=== PATIENT | female | born 1980 | race Hispanic/Latino ===

== ENCOUNTER 2018-11-25 20:54 | Emergency (ER) | payer SELFPAY ==
[2018-11-25 21:35] LABS: Urine Blood 3+ (NEG); Urine Glucose NEGATIVE (NEG); Urine Protein 2+ (NEG); Urine Specific Gravity >1.030 (1.005-1.030); Urine pH 5.5 (5.0-7.0)
[2018-11-25 21:36] LABS: Urine Bacteria >50 /HPF (<20); Urine Culture Reflex Order REFLEXED
[2018-11-25] MEDS ORDERED: KETOROLAC 30 MG/ML INJ ONE (22:11)
[2018-11-25] MEDS ORDERED: NA CHLORIDE 0.9% 1,000 ML ONE (22:12)
[2018-11-25] MEDS ORDERED: CEFTRIAXONE/SWI 1gm 1 GM/10 ML SYR ONE (22:12)
[2018-11-25] MEDS ORDERED: HYDROCODONE/APAP 5/325 MG TAB ONE (22:54)
--- NOTE | 2018-11-26 00:03 | EDPHYS ---
Physician Documentation [facility] Name: Margareth Chapa Age: 38 yrs Sex: Female : 1980 Arrival Date: 11/25/2018 Time: 20:56 Bed 16 Private MD: ED Physician Suhas Packer HPI: 11/26 02:30 This 38 yrs old Female presents to ER via Ambulatory with complaints of Flank gs Pain, Vaginal Bleeding. 02:30 The patient complains of pain in the left low back and right low back. Onset: The gs symptoms/episode began/occurred 1 week(s) ago. Modifying factors: The symptoms are alleviated by nothing. the symptoms are aggravated by nothing. movement. Associated signs and symptoms: Pertinent positives: dysuria, hematuria, Pertinent negatives: dizziness. Severity of pain: At its worst the pain was moderate in the emergency department the pain is unchanged. The patient has experienced similar episodes in the past, a few times. 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 - Social history:: Smoking status: Patient/guardian denies using tobacco. - Ebola Screening: : No symptoms or risks identified at this time. ROS: 11/26 02:30 Constitutional: Negative for chills, fever. gs All other systems are negative. Exam: 02:30 Head/Face: Normocephalic, atraumatic. Eyes: Pupils equal round and reactive to light, gs extra-ocular motions intact. Lids and lashes normal. Conjunctiva and sclera are non-icteric and not injected. Cornea within normal limits. Periorbital areas with no swelling, redness, or edema. ENT: Nares patent. No nasal discharge, no septal abnormalities noted. Tympanic membranes are normal and external auditory canals are clear. Oropharynx with no redness, swelling, or masses, exudates, or evidence of obstruction, uvula midline. Mucous membranes moist. Neck: Trachea midline, no thyromegaly or masses palpated, and no cervical lymphadenopathy. Supple, full range of motion without nuchal rigidity, or vertebral point tenderness. No Meningismus. Chest/axilla: Normal chest wall appearance and motion. Nontender with no deformity. No lesions are appreciated. Cardiovascular: Regular rate and rhythm with a normal S1 and S2. No gallops, murmurs, or rubs. Normal PMI, no JVD. No pulse deficits. Respiratory: Lungs have equal breath sounds bilaterally, clear to auscultation and percussion. No rales, rhonchi or wheezes noted. No increased work of breathing, no retractions or nasal flaring. Abdomen/GI: Soft, non-tender, with normal bowel sounds. No distension or tympany. No guarding or rebound. No evidence of tenderness throughout. Skin: Warm, dry with normal turgor. Normal color with no rashes, no lesions, and no evidence of cellulitis. MS/ Extremity: Pulses equal, no cyanosis. Neurovascular intact. Full, normal range of motion. Neuro: Awake and alert, GCS 15, oriented to person, place, time, and situation. Cranial nerves II-XII grossly intact. Motor strength 5/5 in all extremities. Sensory grossly intact. Cerebellar exam normal. Normal gait. 02:30 Constitutional: The patient appears alert, awake. 02:30 Back: CVA tenderness, that is moderate, is noted bilaterally. Vital Signs: 11/25 21:00 BP 135 / 90; Pulse 88; Resp 16; Temp 97.6; Pulse Ox 98% on R/A; Weight 79.38 kg; Height la1 5 ft. 5 in. (165.10 cm); 22:00 BP 125 / 70; Pulse 85; Resp 17; Temp 98; Pulse Ox 99% on R/A; Pain 6/10; rr5 23:00 BP 115 / 71; Pulse 80; Resp 16; Temp 98.1; Pulse Ox 98% ; Pain 4/10; rr5 11/26 00:00 BP 120 / 65; Pulse 75; Resp 16; Temp 98.2; Pulse Ox 100% on R/A; Pain 2/10; rr5 00:40 BP 119 / 76; Pulse 81; Resp 15; Temp 98.2; Pulse Ox 98% ; Pain 2/10; rr5 11/25 21:00 Body Mass Index 29.12 (79.38 kg, 165.10 cm) la1 MDM: 11/25 21:34 Patient medically screened. gs 11/26 02:30 Differential diagnosis: nephrolithiasis, pyelonephritis, UTI. Data reviewed: vital gs signs, nurses notes. Counseling: I had a detailed discussion with the patient and/or guardian regarding: the historical points, exam findings, and any diagnostic results supporting the discharge/admit diagnosis, lab results, radiology results, the need for outpatient follow up. Response to treatment: the patient's symptoms have markedly improved after treatment, and as a result, I will discharge patient. 11/25 21:06 Order name: Urine Microscopic Only; Complete Time: 21:54 11/25 21:15 Order name: Urine Dipstick--Ancillary (enter results); Complete Time: 21:54 ag4 11/25 21:15 Order name: Urine --Ancillary (enter results); Complete Time: 21:54 ag4 11/25 21:38 Order name: Urine Culture EDRI 11/25 22:38 Order name: CT Stone Protocol 11/25 21:06 Order name: Urine Test (obtain specimen); Complete Time: 21:12 11/25 21:06 Order name: Urine Dipstick-Ancillary (obtain specimen); Complete Time: 21:12 Administered Medications: 11/25 22:05 Drug: TORadol - Ketorolac 15 mg Route: IVP; Site: left forearm; rr5 23:05 Follow up: Response: No adverse reaction rr5 22:07 Drug: Rocephin - (cefTRIAXone) 1 grams Route: IVPB; Infused Over: 30 mins; Site: left rr5 forearm; 22:40 Follow up: Response: No adverse reaction; IV Status: Completed infusion; IV Intake: [id number] 22:09 Drug: NS 0.9% 1000 ml Route: IV; Rate: 1 bolus; Site: left forearm; rr5 23:40 Follow up: Response: No adverse reaction; IV Status: Completed infusion; IV Intake: rr5 1000ml 22:46 Drug: [place] 5 mg-325 mg 1 tabs Route: PO; rr5 23:35 Follow up: Response: No adverse reaction rr5 Disposition: 11/26/18 00:02 Discharged to Home. Impression: Acute tubulo-interstitial nephritis. - Condition is Stable. - Discharge Instructions: Pyelonephritis, Adult, Managing Your Hypertension. - Prescriptions for Keflex 500 mg Oral Capsule - take 2 capsule by ORAL route every 12 hours .; 36 capsule. Tylenol- Codeine #4 300-60 mg Oral Tablet - take 1 tablet by ORAL route every 6 hours As needed; 10 tablet. - Medication Reconciliation Form, Thank You Letter, Antibiotic Education, Prescription Opioid Use form. - Follow up: Private Physician; When: 2 - 3 days; Reason: Re-evaluation by your physician. Signatures: Dispatcher [employer] EDMS Yung Kim RN RN la1 Suhas Packer MD MD gs Jean Agrawal RN RN rr5 Corrections: (The following items were deleted from the chart) 11/26 00:46 00:02 11/26/2018 00:02 Discharged to Home. Impression: Acute tubulo-interstitial rr5 nephritis. Condition is Stable. Forms are Medication Reconciliation Form, Thank You Letter, Antibiotic Education, Prescription Opioid Use. Follow up: Private Physician; When: 2 - 3 days; Reason: Re-evaluation by your physician.
--- NOTE | 2018-11-26 00:03 | ER ---
Nurse's Notes [facility] Name: Margareth Chapa Age: 38 yrs Sex: Female : 1980 Arrival Date: 11/25/2018 Time: 20:56 Bed 16 Private MD: Diagnosis: Acute tubulo-interstitial nephritis Presentation: 11/25 21:00 Presenting complaint: Patient states: GALDINO flank pain, vaginal spotting. denies la1 Vomiting, reports diarrhea. Transition of care: patient was not received from another setting of care. Onset of symptoms was November 25, 2018. Risk Assessment: Do you want to hurt yourself or someone else? Patient reports no desire to harm self or others. Initial Sepsis Screen: Does the patient meet any 2 criteria? No. Patient's initial sepsis screen is negative. Does the patient have a suspected source of infection? No. Patient's initial sepsis screen is negative. Care prior to arrival: None. 21:00 Method Of Arrival: Ambulatory la1 21:00 Acuity: AURELIO 3 la1 MANAGER FINANCIAL REPORTING: 21:00 LMP 11/10/2018 la1 Historical: - Allergies: 21:00 NKA; la1 - PMHx: 21:00 None; la1 - PSHx: 21:00 Tubal ligation; la1 - Immunization history:: Adult Immunizations up to date. - Social history:: Smoking status: Patient/guardian denies using tobacco. - Ebola Screening: : No symptoms or risks identified at this time. Screenin:23 Abuse screen: Denies threats or abuse. Denies injuries from another. Nutritional rr5 screening: No deficits noted. Tuberculosis screening: No symptoms or risk factors identified. Fall Risk None identified. Total Echeverria Fall Scale indicates No Risk (0-24 pts). Assessment: 21:15 General: Appears in no apparent distress. uncomfortable, Behavior is calm, cooperative, rr5 appropriate for age. Pain: Complains of pain in left mid back and right mid back Pain does not radiate. Pain currently is 7 out of 10 on a pain scale. Quality of pain is described as aching, Pain began gradually, Is intermittent. Neuro: Level of Consciousness is awake, alert, obeys commands, Oriented to person, place, time, situation, Appropriate for age. Cardiovascular: Capillary refill < 3 seconds Patient's skin is warm and dry. 21:15 Respiratory: Airway is patent Respiratory effort is even, unlabored, Respiratory rr5 pattern is regular, symmetrical. GI: No signs and/or symptoms were reported involving the gastrointestinal system. : Urine is cloudy, pain in flank area bilateral Reports urgency, vaginal bleeding that is not in the vagina, i think from the urethra blood in urine. EENT: No signs and/or symptoms were reported regarding the EENT system. Derm: Skin is intact, Skin temperature is warm. Musculoskeletal: Capillary refill < 3 seconds, Range of motion: intact in all extremities. 22:30 Reassessment: patient complaints still on severe flank pain. ED provider aware with rr5 order made and carried out. 23:00 Reassessment: Patient appears in no apparent distress at this time. No changes from rr5 previously documented assessment. came back from CT scan. placed on bed comfortably. 23:30 Reassessment: Patient appears in no apparent distress at this time. Patient is alert, rr5 oriented x 3, equal unlabored respirations, skin warm/dry/pink. Patient states symptoms have improved. 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 rr5 00:45 Reassessment: Patient appears in no apparent distress at this time. Patient is alert, rr5 oriented x 3, equal unlabored respirations, skin warm/dry/pink. discharge instruction given and explained without complaints made. Vital Signs: 11/25 21:00 BP 135 / 90; Pulse 88; Resp 16; Temp 97.6; Pulse Ox 98% on R/A; Weight 79.38 kg; Height la1 5 ft. 5 in. (165.10 cm); 22:00 BP 125 / 70; Pulse 85; Resp 17; Temp 98; Pulse Ox 99% on R/A; Pain 6/10; rr5 23:00 BP 115 / 71; Pulse 80; Resp 16; Temp 98.1; Pulse Ox 98% ; Pain 4/10; rr5 11/26 00:00 BP 120 / 65; Pulse 75; Resp 16; Temp 98.2; Pulse Ox 100% on R/A; Pain 2/10; rr5 00:40 BP 119 / 76; Pulse 81; Resp 15; Temp 98.2; Pulse Ox 98% ; Pain 2/10; rr5 05/26 21:00 Body Mass Index 29.12 (79.38 kg, 165.10 cm) la1 ED Course: 11/25 20:56 Patient arrived in ED. am2 21:01 Triage completed. la1 21:01 Arm band placed on right wrist. la1 21:02 Jean Agrawal, MAXI is Primary Nurse. rr5 21:06 Suhas Packer MD is Attending Physician. gs 21:23 Patient has correct armband on for positive identification. Bed in low position. Call rr5 light in reach. Pulse ox on. NIBP on. 22:00 Inserted saline lock: 20 gauge in left forearm, using aseptic technique. rr5 22:40 Inserted saline lock: 22 gauge in right forearm, using aseptic technique. IV rr5 discontinued, bleeding controlled, Pressure dressing applied, positive infiltration at left forearm line. 23:09 CT Stone Protocol In Process Unspecified. EDMS 11/26 00:00 No provider procedures requiring assistance completed. rr5 00:00 IV discontinued, intact, bleeding controlled, No redness/swelling at site. Pressure rr5 dressing applied. Administered Medications: 11/25 22:05 Drug: TORadol - Ketorolac 15 mg Route: IVP; Site: left forearm; rr5 23:05 Follow up: Response: No adverse reaction rr5 22:07 Drug: Rocephin - (cefTRIAXone) 1 grams Route: IVPB; Infused Over: 30 mins; Site: left rr5 forearm; 22:40 Follow up: Response: No adverse reaction; IV Status: Completed infusion; IV Intake: [id number] 22:09 Drug: NS 0.9% 1000 ml Route: IV; Rate: 1 bolus; Site: left forearm; rr5 23:40 Follow up: Response: No adverse reaction; IV Status: Completed infusion; IV Intake: rr5 1000ml 22:46 Drug: [place] 5 mg-325 mg 1 tabs Route: PO; rr5 23:35 Follow up: Response: No adverse reaction rr5 Intake: 22:40 IV: 50ml; Total: 50ml. rr5 23:40 IV: 1000ml; Total: 1050ml. rr5 Outcome: 11/26 00:02 Discharge ordered by . gs 00:30 Discharged to home ambulatory. rr5 00:30 Condition: stable 00:30 Discharge instructions given to patient, Instructed on discharge instructions, follow up and referral plans. Demonstrated understanding of instructions, follow-up care, Prescriptions given X 2. 00:46 Patient left the ED. rr5 Addendum: 11/29/2018 14:05 Addendum: Culture Results: Positive urine culture. No further action required. Bacteria i w sensitive to prescribed antibiotic. Signatures: Dispatcher [employer] EDNettie Chacon RN RN iw Yung Kim RN RN [email or web address] Jenny Ahn Gregory, MD MD gs Roque, Raymond, RN RN rr5
--- NOTE | 2018-11-27 10:29 | RAD REPORT ---
EXAM DESCRIPTION: CT - Stone Protocol - 11/25/2018 11:08 pm CLINICAL HISTORY: 38 years Female FLANK PAIN COMPARISON: None TECHNIQUE: Images were obtained in axial, sagittal, and coronal planes. This exam was performed according to our departmental dose-optimization program which includes use of Automated Exposure Control, adjustment of the mA and/or kV according to patient size and/or use of i terative reconstruction technique. FINDINGS: Multiple nonobstructing calcifications kidneys bilaterally. The largest on the right is no rian inferiorly measuring 3 mm. The largest on left is seen measuring 5 mm. No hydronephrosis bilatera lly. No definite ureteral calculi bilaterally. Unremarkable bladder. Appendix not well identified however no secondary signs for appendicitis. No bowel obstruction, perfo ration, or inflammation. No abnormality involving the liver, spleen, pancreas, or adrenal glands bilaterally. Contracted gallb ladder. No dilatation abdominal aorta. No adenopathy or abnormal fluid collections. 3.6 cm cystic finding right pelvis likely involving the right ovary. Uterus is prominent in size. No abnormality lower lungs bilaterally. No acute osseous abnormality. IMPRESSION: Multiple subcentimeter nonobstructing calcifications kidneys bilaterally. No hydronephro sis bilaterally. Possible right ovarian cyst. Electronically signed by: Jessica Beverly MD 11/25/2018 11:26 PM CDT Due to temporary technical issues with the PACS/Fluency reporting system, reports are being signed by the in house radiologist as a courtesy to ensure prompt reporting. The interpreting radiologist is f ully responsible for the content of the report.
== END 2018-11-26 00:46 | disposition home or self-care (01) ==
LOC: ER 20:54
DX: N10 Acute pyelonephritis (principal)
CPT/HCPCS: 74176; 76377; 81003; 81015; 81025; 87077; 87086; 87088; 87186; 96361; 96365; 96375; 99284; J0696; J7030

== ENCOUNTER 2018-12-31 23:13 | Inpatient (IN) | payer SELFPAY ==
[2019-01-01] MEDS ORDERED: MORPHINE 2 MG/ML SYR ONE (00:16)
[2019-01-01] MEDS ORDERED: ONDANSETRON 4 MG/2 ML VIAL ONE (00:16)
[2019-01-01] MEDS ORDERED: NA CHLORIDE 0.9% 2,000 ML ONE (00:16)
[2019-01-01 00:20] LABS: Absolute Lymphocytes (CBC) 0.6 K/uL (0.7-4.9); Basophils % 0.2 % (0-1.3); Hematocrit 36.5 % (36.0-45.0); Lymphocytes % 2.8 % (15.3-44.8); MPV 9.3 fL (7.6-11.3); Monocytes % 6.6 % (3.3-12.3); RBC Red Blood Cell Count 4.19 M/uL (3.86-4.86)
[2019-01-01 00:29] LABS: Protime INR 1.13
[2019-01-01 00:33] LABS: ALT/SGPT 15 U/L (12-78); AST/SGOT 7 U/L (15-37); Alkaline Phosphatase 82 U/L (45-117); BUN Blood Urea Nitrogen 12 mg/dL (7-18); Bicarbonate 24 mmol/L (21-32); Bilirubin Direct 0.2 mg/dL (0-0.2); Bilirubin Total 0.6 mg/dL (0.2-1.0); Glucose Level 125 mg/dL (74-106); NT PRO-BNP 91 pg/mL (<125); Potassium 3.2 mmol/L (3.5-5.1); Protein, Total 8.4 g/dL (6.4-8.2); Sodium Level 137 mmol/L (136-145); Troponin (Emerg Dept Use Only) < 0.02 ng/mL (0.0-0.045)
[2019-01-01] MEDS ORDERED: AZITHROMYCIN 500 MG INJ IVPB ONE (00:51)
[2019-01-01] MEDS ORDERED: CEFTRIAXONE/SWI 1gm 1 GM/10 ML SYR ONE (00:51)
[2019-01-01] MEDS ORDERED: NA CHLORIDE 0.9% 250 ML ONE (00:51)
--- NOTE | 2019-01-01 00:53 | ER ---
Nurse's Notes [facility] Name: Margareth Chapa Age: 38 yrs Sex: Female : 1980 Arrival Date: 12/31/2018 Time: 23:17 Bed 24 Private MD: Diagnosis: Chest pain, unspecified;Chest pain on breathing;Elevated white blood cell count;Urinary tract infection, site not specified;Hypokalemia;Bandemia Presentation: 12/31 23:19 Presenting complaint: Patient states: "I have been having chest pain and shortness of jd3 breath since this morning. I also have been running a fever.". Transition of care: patient was not received from another setting of care. Onset of symptoms was December 31, 2018. Risk Assessment: Do you want to hurt yourself or someone else? Patient reports no desire to harm self or others. Initial Sepsis Screen: Does the patient meet any 2 criteria? HR > 90 bpm. Does the patient have a suspected source of infection? No. Patient's initial sepsis screen is negative. Care prior to arrival: pt reported taking Advil before arrival at 2130. 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 - Social history:: Smoking status: Patient/guardian denies using tobacco. - Ebola Screening: : Patient negative for fever greater than or equal to 101.5 degrees Fahrenheit, and additional compatible Ebola Virus Disease symptoms. - Family history:: not pertinent. Screenin/02 00:30 Abuse screen: Denies threats or abuse. Denies injuries from another. Nutritional lp1 screening: No deficits noted. Tuberculosis screening: No symptoms or risk factors identified. Fall Risk None identified. Assessment: 00:00 General: Appears uncomfortable, Behavior is appropriate for age, Reports chills for lp1 0-12 hours, feeling ill for 0-12 hours, fatigue for 0-12 hours. Pain: Complains of pain in left low back and right low back, to general body Pain does not radiate. Pain began gradually. Neuro: Level of Consciousness is awake, alert, obeys commands, Oriented to person, place, time, situation. Cardiovascular: Rhythm is sinus tachycardia. Respiratory: Respiratory effort is even, Breath sounds are clear bilaterally. GI: Abdomen is non-distended. : Reports burning with urination. EENT: No signs and/or symptoms were reported regarding the EENT system. Derm: Skin is intact, Skin is diaphoretic, Skin is normal. Musculoskeletal: No deficits noted. 01:20 Reassessment: Patient is alert, oriented x 3, equal unlabored respirations, skin lp1 warm/dry/pink. Patient states chills have improved at this time; aware of waiting for imaging results Patient states feeling better. Patient states symptoms have improved. 02:30 Reassessment: Patient states feeling better, but continued discomfort to epigastric lp1 area; Provider notified. Vital Signs: 12/31 23:22 BP 115 / 67; Pulse 129; Resp 20 S; Temp 99.1(O); Pulse Ox 99% on R/A; Weight 81.65 kg jd3 (R); Height 5 ft. 4 in. (162.56 cm) (R); Pain 7/10; 01/01 00:00 BP 119 / 80; Pulse 115; Resp 17; Pulse Ox 98% on R/A; lp1 00:30 BP 116 / 66; Pulse 94; Resp 20; Pulse Ox 99% on R/A; lp1 01:15 BP 115 / 72; Pulse 103; Resp 17; Temp 98.6(O); Pulse Ox 99% on R/A; lp1 02:00 BP 112 / 72; Pulse 102; Resp 14; Pulse Ox 99% on R/A; lp1 12/31 23:22 Body Mass Index 30.90 (81.65 kg, 162.56 cm) jd3 ED Course: 12/31 23:17 Patient arrived in ED. es 23:19 Goyo Felder MD is Attending Physician. gracy 23:21 Triage completed. jd3 23:23 Arm band placed on. jd3 23:55 Inserted saline lock: 20 gauge in right antecubital area, using aseptic technique. lp1 Blood collected. 23:55 First set of blood cultures drawn. lp1 23:57 Ruba Bello, RN is Primary Nurse. lp1 01/01 00:00 Patient has correct armband on for positive identification. Placed in gown. Bed in low lp1 position. Call light in reach. dry wall installer on. Pulse ox on. NIBP on. 00:00 Patient maintains SpO2 saturation greater than 95% on room air. lp1 00:09 X-ray completed. Portable x-ray completed in exam room. Patient tolerated procedure kw well. 00:11 XRAY Chest (1 view) In Process Unspecified. EDMS 00:20 Second set of blood cultures drawn by me, Flu and/or RSV swab sent to lab. lp1 00:26 Radiology exam delayed due to lab results not completed at this time. (BUN/Creatinine). kw1 00:52 Fito Philip MD is Hospitalizing Provider. [facility] 01:08 CT Chest For PE Angio In Process Unspecified. EDMS 01:21 No provider procedures requiring assistance completed. Patient admitted, IV remains in lp1 place. Administered Medications: 00:05 Drug: morphine 2 mg Route: IVP; Site: right antecubital; lp1 01:19 Follow up: Response: Pain is decreased lp1 00:05 Drug: Zofran 4 mg Route: IVP; Site: right antecubital; lp1 01:19 Follow up: Response: No adverse reaction; Nausea is decreased lp1 00:05 Drug: NS 0.9% 1000 ml Route: IV; Rate: 1 bolus; Site: right antecubital; lp1 01:18 Follow up: IV Status: Completed infusion; IV Intake: 1000ml lp1 01:00 Drug: Rocephin - (cefTRIAXone) 1 grams Route: IVPB; Infused Over: 30 mins; Site: right lp1 antecubital; 01:19 Follow up: IV Status: Completed infusion; IV Intake: 10ml lp1 01:05 Drug: Zithromax 500 mg Route: IVPB; Infused Over: 1 hrs; Site: right antecubital; lp1 02:21 Follow up: IV Status: Completed infusion; IV Intake: 250ml lp1 01:05 Drug: Aspirin Chewable Tablet 162 mg Route: PO; lp1 02:20 Follow up: Response: No adverse reaction lp1 01:05 Drug: Potassium Effervescent Tablet 25 mEq Route: PO; lp1 02:20 Follow up: Response: No adverse reaction lp1 01:19 Drug: NS 0.9% 1000 ml Route: IV; Rate: 1 bolus; Site: right antecubital; lp1 02:20 Follow up: IV Status: Completed infusion; IV Intake: 1000ml lp1 02:35 Not Given (Patient Refused): morphine 2 mg IVP once lp1 Intake: 01:18 IV: 1000ml; Total: 1000ml. lp1 01:19 IV: 10ml; Total: 1010ml. lp1 02:20 IV: 1000ml; Total: 2010ml. lp1 02:21 IV: 250ml; Total: 2260ml. 1 Outcome: 00:53 Decision to Hospitalize by Provider. gracy 01:21 Condition: stable lp1 01:21 Instructed on the need for admit. 02:18 Admitted to Med/surg via wheelchair, room 207, with chart, Report called to Lara Michelle RN 02:35 Patient left the ED. lp1 Signatures: Dispatcher [employer] EDGoyo Mckoy MD MD cha Salyer, Edna es Whitley, Kimberlee kw Pena, Laura RN RN lp1 Kaleb Isidro RN RN Jeannie Solorzano Corrections: (The following items were deleted from the chart) 01:21 01:20 Reassessment: Patient is alert, oriented x 3, equal unlabored respirations, skin lp1 warm/dry/pink. Patient states chills have improved at this time Patient states feeling better. Patient states symptoms have improved. lp1
--- NOTE | 2019-01-01 00:54 | EDPHYS ---
Physician Documentation [facility] Name: Margareth Chapa Age: 38 yrs Sex: Female : 1980 Arrival Date: 12/31/2018 Time: 23:17 Bed 24 Private MD: ED Physician Goyo Felder HPI: 12/31 23:52 This 38 yrs old Female presents to ER via Wheelchair with complaints of Chest gracy Pain, Vomiting, CHILLS,SWEATS. 23:52 The patient or guardian reports chest pain that is located primarily in the substernal gracy area, anterior chest wall. The pain does not radiate. Associated signs and symptoms: Pertinent positives: cough, nausea, vomiting, fever. The chest pain is described as a pressure. Modifying factors: The symptoms are alleviated by remaining still, the symptoms are aggravated by cough, deep breath, movement, palpation of area. Severity of pain: At its worst the pain was mild moderate in the emergency department the pain is unchanged. 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 - Social history:: Smoking status: Patient/guardian denies using tobacco. - Ebola Screening: : Patient negative for fever greater than or equal to 101.5 degrees Fahrenheit, and additional compatible Ebola Virus Disease symptoms. - Family history:: not pertinent. ROS: 23:52 Constitutional: Negative for fever, chills, and weight loss, Eyes: Negative for injury, gracy pain, redness, and discharge, ENT: Negative for injury, pain, and discharge, Neck: Negative for injury, pain, and swelling, Abdomen/GI: Negative for abdominal pain, nausea, vomiting, diarrhea, and constipation, Back: Negative for injury and pain, : Negative for injury, bleeding, discharge, and swelling, MS/Extremity: Negative for injury and deformity, Skin: Negative for injury, rash, and discoloration, Neuro: Negative for headache, weakness, numbness, tingling, and seizure, Psych: Negative for depression, anxiety, suicide ideation, homicidal ideation, and hallucinations, Allergy/Immunology: Negative for hives, rash, and allergies, Endocrine: Negative for neck swelling, polydipsia, polyuria, polyphagia, and marked weight changes, Hematologic/Lymphatic: Negative for swollen nodes, abnormal bleeding, and unusual bruising. 23:52 Cardiovascular: Positive for chest pain, palpitations. 23:52 Respiratory: Positive for cough, with no reported sputum. Exam: 23:52 Constitutional: This is a well developed, well nourished patient who is awake, alert, gracy and in no acute distress. Head/Face: Normocephalic, atraumatic. Eyes: Pupils equal round and reactive to light, extra-ocular motions intact. Lids and lashes normal. Conjunctiva and sclera are non-icteric and not injected. Cornea within normal limits. Periorbital areas with no swelling, redness, or edema. ENT: Nares patent. No nasal discharge, no septal abnormalities noted. Tympanic membranes are normal and external auditory canals are clear. Oropharynx with no redness, swelling, or masses, exudates, or evidence of obstruction, uvula midline. Mucous membranes moist. Neck: Trachea midline, no thyromegaly or masses palpated, and no cervical lymphadenopathy. Supple, full range of motion without nuchal rigidity, or vertebral point tenderness. No Meningismus. Chest/axilla: Normal chest wall appearance and motion. Nontender with no deformity. No lesions are appreciated. Abdomen/GI: Soft, non-tender, with normal bowel sounds. No distension or tympany. No guarding or rebound. No evidence of tenderness throughout. Back: No spinal tenderness. No costovertebral tenderness. Full range of motion. Female : Normal external genitalia. Skin: Warm, dry with normal turgor. Normal color with no rashes, no lesions, and no evidence of cellulitis. MS/ Extremity: Pulses equal, no cyanosis. Neurovascular intact. Full, normal range of motion. Neuro: Awake and alert, GCS 15, oriented to person, place, time, and situation. Cranial nerves II-XII grossly intact. Motor strength 5/5 in all extremities. Sensory grossly intact. Cerebellar exam normal. Normal gait. 23:52 Cardiovascular: Rate: tachycardic, Rhythm: regular, Pulses: Pulses are 4+ in bilateral radial, brachial, femoral, popliteal, posterior tibial and and dorsalis pedis arteries.. Heart sounds: normal, Edema: is not appreciated, JVD: is not appreciated. 23:52 Respiratory: the patient does not display signs of respiratory distress, Respirations: normal, Breath sounds: decreased breath sounds, rhonchi, that are mild, are scattered, Respiratory rate: 20 Vital Signs: 23:22 BP 115 / 67; Pulse 129; Resp 20 S; Temp 99.1(O); Pulse Ox 99% on R/A; Weight 81.65 kg jd3 (R); Height 5 ft. 4 in. (162.56 cm) (R); Pain 7/10; 01/01 00:00 BP 119 / 80; Pulse 115; Resp 17; Pulse Ox 98% on R/A; lp1 00:30 BP 116 / 66; Pulse 94; Resp 20; Pulse Ox 99% on R/A; lp1 01:15 BP 115 / 72; Pulse 103; Resp 17; Temp 98.6(O); Pulse Ox 99% on R/A; lp1 02:00 BP 112 / 72; Pulse 102; Resp 14; Pulse Ox 99% on R/A; lp1 12/31 23:22 Body Mass Index 30.90 (81.65 kg, 162.56 cm) jd3 MDM: 12/31 23:27 Patient medically screened. [facility] 23:57 Data reviewed: vital signs, nurses notes, lab test result(s), EKG, radiologic studies, [facility] CT scan, plain films. 12/31 23:51 Order name: Basic Metabolic Panel [facility] 12/31 23:51 Order name: CBC with Diff [facility] 12/31 23:51 Order name: LFT's [facility] 12/31 23:51 Order name: Magnesium; Complete Time: 00:46 [facility] 12/31 23:51 Order name: NT PRO-BNP; Complete Time: 00:46 [facility] 12/31 23:51 Order name: PT-INR; Complete Time: 00:46 [facility] 12/31 23:51 Order name: Troponin (emerg Dept Use Only); Complete Time: 00:46 [facility] 12/31 23:51 Order name: Blood Culture Adult (2) [facility] 12/31 23:51 Order name: Flu; Complete Time: 01:11 [facility] 12/31 23:51 Order name: Urine Culture [facility] 12/31 23:52 Order name: Basic Metabolic Panel; Complete Time: 00:46 [facility] 12/31 23:52 Order name: CBC with Automated Diff; Complete Time: 02:02 [facility] 12/31 23:52 Order name: Liver (Hepatic) Function; Complete Time: 00:46 [facility] 12/31 23:58 Order name: Lactate [facility] 12/31 23:51 Order name: XRAY Chest (1 view) [facility] 12/31 23:51 Order name: CT Chest For PE Angio [facility] 12/31 23:58 Order name: Procalcitonin; Complete Time: 01:11 [facility] 12/31 23:59 Order name: Lactate; Complete Time: 00:46 [facility] 01/01 00:25 Order name: Manual Differential; Complete Time: 02:02 [facility] 01/01 00:56 Order name: Urine Dipstick--Ancillary (enter results) [facility] 01/01 00:56 Order name: Urine --Ancillary (enter results) [facility] 01/01 01:08 Order name: Lipid Profile [facility] 01/01 01:08 Order name: Troponin I [facility] 01/01 01:08 Order name: Troponin I [facility] 01/01 01:08 Order name: Echo with Doppler [facility] 12/31 23:51 Order name: EKG; Complete Time: 23:53 [facility] 12/31 23:51 Order name: Cardiac monitoring; Complete Time: 00:26 [facility] 12/31 23:51 Order name: EKG - Nurse/Tech; Complete Time: 23:58 [facility] 12/31 23:51 Order name: IV Saline Lock; Complete Time: 23:58 [facility] 12/31 23:51 Order name: Labs collected and sent; Complete Time: 23:58 [facility] 12/31 23:51 Order name: O2 Per Protocol; Complete Time: 23:58 [facility] 12/31 23:51 Order name: O2 Sat Monitoring; Complete Time: 23:58 [facility] 12/31 23:51 Order name: Urine Dipstick-Ancillary (obtain specimen); Complete Time: 00:54 [facility] 12/31 23:51 Order name: Urine Test (obtain specimen); Complete Time: 00:55 [facility] 01/01 01:08 Order name: Heart Healthy [facility] 01/01 01:08 Order name: EKG Electrocardiogram [facility] Administered Medications: 01/01 00:05 Drug: morphine 2 mg Route: IVP; Site: right antecubital; lp1 01:19 Follow up: Response: Pain is decreased lp1 00:05 Drug: Zofran 4 mg Route: IVP; Site: right antecubital; lp1 01:19 Follow up: Response: No adverse reaction; Nausea is decreased lp1 00:05 Drug: NS 0.9% 1000 ml Route: IV; Rate: 1 bolus; Site: right antecubital; lp1 01:18 Follow up: IV Status: Completed infusion; IV Intake: 1000ml lp1 01:00 Drug: Rocephin - (cefTRIAXone) 1 grams Route: IVPB; Infused Over: 30 mins; Site: right lp1 antecubital; 01:19 Follow up: IV Status: Completed infusion; IV Intake: 10ml lp1 01:05 Drug: Zithromax 500 mg Route: IVPB; Infused Over: 1 hrs; Site: right antecubital; lp1 02:21 Follow up: IV Status: Completed infusion; IV Intake: 250ml lp1 01:05 Drug: Aspirin Chewable Tablet 162 mg Route: PO; lp1 02:20 Follow up: Response: No adverse reaction lp1 01:05 Drug: Potassium Effervescent Tablet 25 mEq Route: PO; lp1 02:20 Follow up: Response: No adverse reaction lp1 01:19 Drug: NS 0.9% 1000 ml Route: IV; Rate: 1 bolus; Site: right antecubital; lp1 02:20 Follow up: IV Status: Completed infusion; IV Intake: 1000ml lp1 02:35 Not Given (Patient Refused): morphine 2 mg IVP once lp1 Disposition: 01/01/19 00:53 Hospitalization ordered by Fito Philip for Inpatient Admission. Preliminary diagnosis are Chest pain, unspecified, Chest pain on breathing, Elevated white blood cell count, Urinary tract infection, site not specified, Hypokalemia, Bandemia. - Bed requested for Telemetry/MedSurg (Inpatient). - Status is Inpatient Admission. lp1 - Condition is Fair. - Problem is new. - Symptoms have improved. UTI on Admission? Yes Signatures: Dispatcher [employer] EDMS Goyo Felder MD MD cha Pena, Laura, RN RN lp1 Bharati Chapa RN RN cg Davies, Jonathon, RN RN jd3 Corrections: (The following items were deleted from the chart) 02:01 00:53 Hospitalization Ordered by Fito Philip MD for Inpatient Admission. Preliminary cg diagnosis is Chest pain, unspecified; Chest pain on breathing; Elevated white blood cell count; Urinary tract infection, site not specified; Hypokalemia. Bed requested for Telemetry/MedSurg (Inpatient). Status is Inpatient Admission. Condition is Fair. Problem is new. Symptoms have improved. UTI on Admission? Yes. [facility] 02:03 02:01 01/01/2019 00:53 Hospitalization Ordered by Fito Philip MD for Inpatient gracy Admission. Preliminary diagnosis is Chest pain, unspecified; Chest pain on breathing; Elevated white blood cell count; Urinary tract infection, site not specified; Hypokalemia. Bed requested for Telemetry/MedSurg (Inpatient). Status is Inpatient Admission. Condition is Fair. Problem is new. Symptoms have improved. UTI on Admission? Yes. 02:35 02:03 01/01/2019 00:53 Hospitalization Ordered by Fito Philip MD for Inpatient lp1 Admission. Preliminary diagnosis is Chest pain, unspecified; Chest pain on breathing; Elevated white blood cell count; Urinary tract infection, site not specified; Hypokalemia; Bandemia. Bed requested for Telemetry/MedSurg (Inpatient). Status is Inpatient Admission. Condition is Fair. Problem is new. Symptoms have improved. UTI on Admission? Yes. [facility]
[2019-01-01] MEDS ORDERED: ACETAMINOPHEN 500 MG TAB PO PRN (01:00)
[2019-01-01] MEDS ORDERED: ALPRAZOLAM 0.25 MG TABLET PO PRN (01:00)
[2019-01-01] MEDS ORDERED: ASPIRIN 81 MG CHEWABLE TABLET ONE (01:12)
[2019-01-01] MEDS ORDERED: POTASSIUM 25 MEQ EFFERV TAB ONE (01:12)
[2019-01-01 01:18] LABS: Blood Morphology Comment NOT SEEN (NOT SEEN); Platelet Estimate ADEQ
[2019-01-01 03:18] LABS: Urine Blood 2+ (NEG); Urine Glucose NEGATIVE (NEG); Urine Protein TRACE (NEG); Urine pH 6.5 (5.0-7.0)
[2019-01-01] MEDS: ONDANSETRON 4 MG/2 ML VIAL IV PRN ×3 (04:42→20:24)
[2019-01-01] MEDS: MORPHINE 4 MG/ML SYR IV PRN ×2 (04:42→12:13)
[2019-01-01 05:46] LABS: HDL Cholesterol 53 mg/dL (40-60); LDL Cholesterol, Calculated 99 (<130); Troponin I < 0.02 ng/mL (0.0-0.045)
[2019-01-01] MEDS: METOPROLOL TAR 50 MG TAB PO SCH ×2 (05:47→08:54)
[2019-01-01] MEDS: NA CHLORIDE 0.9% 1,000 ML IV SCH ×3 (06:35→22:34)
[2019-01-01] MEDS ORDERED: SODIUM CHLORIDE 0.9% 10ML INJ IV PRN (07:34)
[2019-01-01] MEDS ORDERED: TRAMADOL HCL 50 MG TAB PO PRN (07:36)
--- NOTE | 2019-01-01 07:47 | P.HP ---
Certification for Inpatient Patient admitted to: Observation With expected LOS: <2 Midnights Patient will require the following post-hospital care: None Practitioner: I am a practitioner with admitting privileges, knowledge of patient current condition, hospital course, and medical plan of care. Services: Services provided to patient in accordance with Admission requirements found in Title 42 Section 412.3 of the Code of Federal Regulations Patient History Date of Service: 01/01/19 Reason for admission: Chest pain/intractable nausea and vomiting History of Present Illness: Patient is a 38-year-old female who was at work when she started having lightheadedness and chest discomfort. She went home and started having some nausea and vomiting. She was pale and feeling weak and signed consent lay down and go to bed. After sleeping for about 4 hr she woke up in her symptoms persisted. She decided to come into the emergency room for further evaluation. The worse symptom is having rigors. This is happened on 2 different occasions and she gets very shaky. I believe this is related to her having a fever. I think the chest discomfort may be related to gastritis or esophagitis. She possibly has a viral gastroenteritis. She is not able to keep anything down. She is having persistent vomiting and she failed testing to keep food down in the ER. She will be admitted to the hospital for further evaluation. Allergies No Known Allergies Allergy (Verified 01/01/19 02:54) Home Medications: NK [No Home Meds] 01/01/19 - Past Medical/Surgical History Has patient received pneumonia vaccine in the past: No Diabetic: No -: UTI -: Bunions -: Tubal -: Appy -: R bunion surgery - Family History Father Medical History: Diabetes Mother Medical History: Diabetes - Social History Smoking Status: Never smoker Alcohol use: Yes CD- Drugs: No Caffeine use: Yes Place of Residence: Home Review of Systems 10-point ROS is otherwise unremarkable Physical Examination - Vital Signs Temperature: 102 F Blood Pressure: 129/68 Pulse: 99 Respirations: 18 Pulse Ox (%): 98 - Physical Exam General: Alert, In no apparent distress, Oriented x3 HEENT: Atraumatic, PERRLA, Mucous membr. moist/pink, EOMI, Sclerae nonicteric Neck: Supple, 2+ carotid pulse no bruit, No LAD, Without JVD or thyroid abnormality Respiratory: Clear to auscultation bilaterally, Normal air movement Cardiovascular: Regular rate/rhythm, Normal S1 S2, No murmurs Gastrointestinal: Normal bowel sounds, Soft and benign, Non-distended, No rebound, No guarding, Tenderness Musculoskeletal: No clubbing, No swelling, No tenderness Integumentary: No rashes Neurological: Normal speech, Normal strength at 5/5 x4 extr, Normal tone, Sensation intact, Cranial nerves 3-12 intact, Normal affect, Abnormal gait Lymphatics: No axilla or inguinal lymphadenopathy - Studies Laboratory Data (last 24 hrs) 12/31/18 23:55: PT 13.3 H, INR 1.13 12/31/18 23:55: WBC 20.3 H*, Hgb 12.1, Hct 36.5, Plt Count 341 12/31/18 23:55: Sodium 137, Potassium 3.2 L, BUN 12, Creatinine 0.89, Glucose 125 H, Magnesium 2.0, Total Bilirubin 0.6, AST 7 L, ALT 15, Alkaline Phosphatase 82 Microbiology Data (last 24 hrs): 01/01/19 00:15 Nasopharnyx Influenza Type A Antigen Screen - Final 01/01/19 00:15 Nasopharnyx Influenza Type B Antigen Screen - Final Assessment & Plan - Problems (Diagnosis) (1) Chest pain, rule out acute myocardial infarction Current Visit: Yes Status: Acute (2) Viral gastroenteritis Current Visit: Yes Status: Acute (3) Fever Current Visit: Yes Status: Acute (4) Intractable nausea and vomiting Current Visit: Yes Status: Acute (5) Rigors Current Visit: Yes Status: Acute - Plan 1. Continue with IV hydration 2. Continue with anti-emetics and antipyretics 3. Continue with pain control 4. NPO 5. GI consultation as an outpatient for possible endoscopy? 6. Serial H&H, and we will monitor CBC, BMP, LFTs and lipase along with electrolytes. 7. Serial troponins and EKG 8. GI and DVT prophylax Discharge Plan: Home Plan to discharge in: Greater than 2 days - Advance Directives Does patient have a Living Will: No Does patient have a Durable POA for Healthcare: No - Code Status/Comfort Care Code Status Assessed: Yes Code Status: Full Code Critical Care: No Time Spent Managing PTS Care (In Minutes): 45
--- NOTE | 2019-01-01 08:17 | RAD REPORT ---
EXAM DESCRIPTION: RAD - Chest Single View - 01/01/2019 12:11 am CLINICAL HISTORY: COUGH Chest pain. COMPARISON: No comparisons FINDINGS: Portable technique limits examination quality. The lungs are grossly clear. The heart is normal in size. No displaced fractures. IMPRESSION: No acute intrathoracic process suspected.
[2019-01-01] MEDS: ENOXAPARIN 40 MG/0.4 ML SQ SCH (08:53)
[2019-01-01] MEDS: ACETAMINOPHEN 500 MG TAB PO SCH ×3 (08:53→19:53)
[2019-01-01] MEDS: PANTOPRAZOLE 40 MG INJ IVP SCH (08:58)
--- NOTE | 2019-01-01 10:57 | EKG ---
Test Date: 2018-12-31 Test Time: 23:38:47 [employer] Location Manager: DAXA MEASUREMENT RESULTS: Intervals: Rate: 108 LA: 134 QRSD: 88 QT: 338 QTc: 452 Navarro: P: 65 LA: 134 QRS: 80 T: 31 INTERPRETIVE STATEMENTS: Sinus tachycardia Possible Left atrial enlargement Borderline ECG No previous ECG available for comparison Electronically Signed On 01-01-19 10:54:56 CDT by Royal Lee
--- NOTE | 2019-01-01 11:11 | RAD REPORT ---
EXAM DESCRIPTION: Chest For Pe Angio CLINICAL HISTORY: Cough;Chest pain COMPARISON: None. TECHNIQUE: CT CHEST ANGIOGRAPHY WITH IV CONTRAST on 12/31/2018 11:51 PM CDT. MIPS reconstructions were generated. This exam was performed according to our departmental dose-optimization program, which includes autom ated exposure control, adjustment of the mA and/or kV according to patient size and/or use of iterati ve reconstruction technique. MIP images were generated. FINDINGS: Thoracic aorta is normal in course and caliber without aneurysm or dissection. Pulmonary a rteries are adequately opacified without acute or chronic filling defects. The heart is normal in size. There is no pericardial effusion. Intrathoracic lymph nodes are not enla rged. There is no pleural effusion, pleural thickening or pneumothorax. Central airways are patent. Lungs a re clear with no consolidation, mass or interstitial lung disease. There are no acute abnormalities within the limited images of the upper abdomen. There are no acute osseous findings. No suspicious bony lesions. IMPRESSION: No aortic dissection or aneurysm. No pulmonary embolus. No pneumonia. Electronically signed by: Pardeep Turcios MD 01/01/2019 1:19 AM CDT Due to temporary technical issues with the PACS/Fluency reporting system, reports are being signed by the in house radiologist as a courtesy to ensure prompt reporting. The interpreting radiologist is f ully responsible for the content of the report.
[2019-01-01 11:56] LABS: Absolute Lymphocytes (CBC) 0.9 K/uL (0.7-4.9); Basophils % 0.3 % (0-1.3); Hematocrit 32.4 % (36.0-45.0); Lymphocytes % 4.3 % (15.3-44.8); MPV 8.9 fL (7.6-11.3); Monocytes % 9.3 % (3.3-12.3); RBC Red Blood Cell Count 3.66 M/uL (3.86-4.86)
[2019-01-01] MEDS ORDERED: IBUPROFEN 400 MG TAB PO ONE (12:15)
[2019-01-01] MEDS ORDERED: NA CHLORIDE 0.9% 1,000 ML IV ONE (12:15)
[2019-01-01 12:16] LABS: BUN Blood Urea Nitrogen 7 mg/dL (7-18); Bicarbonate 22 mmol/L (21-32); Glucose Level 101 mg/dL (74-106); Magnesium 1.9 mg/dL (1.8-2.4); Phosphorus 2.1 mg/dL (2.5-4.9); Potassium 3.5 mmol/L (3.5-5.1); Sodium Level 139 mmol/L (136-145); Troponin I < 0.02 ng/mL (0.0-0.045)
[2019-01-01 13:41] LABS: Blood Morphology Comment NOT SEEN (NOT SEEN); Platelet Estimate ADEQ
--- NOTE | 2019-01-01 14:10 | ECHO ---
HEIGHT: ft in WEIGHT: lb oz DATE OF STUDY: 01/01/[address]: Fito Philip MD 2-DIMENSIONAL: YES M.MODE: YES DOPPLER: YES COLOR FLOW: YES TDS: NO PORTABLE: NO DEFINITY: NO BUBBLE STUDY: NO DIAGNOSIS: RULE OUT ACUTE CORONARY SYNDROME CARDIAC HISTORY: CATHERIZATION: NO SURGERY: NO PROSTHETIC VALVE: NO PACEMAKER: NO MEASUREMENTS (cm) DIASTOLIC (NORMALS) SYSTOLIC (NORMALS) IVSd 0.8 (0.6-1.2) LA Diam 2.8 (1.9-4.0) LVEF 59% LVIDd 4.3 (3.5-5.7) LVIDs 3.0 (2.0-3.5) %FS 31% LVPWd 1.0 (0.6-1.2) Ao Diam 2.5 (2.0-3.7) 2 DIMENSIONAL ASSESSMENT: RIGHT ATRIUM: NORMAL LEFT ATRIUM: NORMAL RIGHT VENTRICLE: NORMAL LEFT VENTRICLE: NORMAL TRICUSPID VALVE: NORMAL MITRAL VALVE: NORMAL PULMONIC VALVE: NORMAL AORTIC VALVE: NORMAL PERICARDIAL EFFUSION: NONE AORTIC ROOT: NORMAL LEFT VENTRICULAR WALL MOTION: NORMAL. DOPPLER/COLOR FLOW: NORMAL. COMMENTS: NORMAL 2D ECHO WITH DOPPLER. NO WALL MOTION ABNORMALITY. NO EFFUSION. TECHNOLOGIST: NOE NUÑEZ
[2019-01-01] MEDS ORDERED: MORPHINE 2 MG/ML SYR IV ONE (20:12)
[2019-01-01] MEDS: CEFTRIAXONE/SWI 1gm 1 GM/10 ML SYR IV SCH (20:15)
[2019-01-01] MEDS ORDERED: KETOROLAC 30 MG/ML INJ IV ONE (22:08)
[2019-01-02] MEDS: TRAMADOL 37.5mg/APAP 325mg PER TAB PO SCH ×4 (00:40→18:28)
[2019-01-02] MEDS: ACETAMINOPHEN 325 MG TABLET PO SCH ×4 (00:40→18:28)
[2019-01-02] MEDS ORDERED: IBUPROFEN 200 MG TAB PO SCH (01:00)
--- NOTE | 2019-01-02 02:14 | CON ---
Date of Consultation: 01/01/2019 The patient was admitted to Dr. Miranda's service on 12/31/2018. The patient was seen on 01/01/2019. Reason For Consultation: Chest pain. History Of Present Illness: Ms. Chapa is a patient who is 38 years old. No previous cardiac histor y. No home medication. Came in with what appears to be a viral gastroenteritis, for which she is be ing hydrated. Had a white count of 20,000, potassium of 3.2, temperature of 100.2, had a normal EKG, normal chest x-ray, normal troponin and BNP, but while she is being treated here, developed sharp, s tabbing chest pain in the mid epigastric to substernal area that did not radiate without any PND, ort hopnea, pedal edema, palpitation, or syncope. Echocardiogram, which was done before I saw her, was p erfectly normal. Past Medical History: Otherwise negative. Allergies: NONE. Review of Systems: Negative. Social History: Negative. Family History: Negative. Medications: None. Physical Examination: Vital Signs: Stable. She was afebrile. HEENT: Negative. Neck: Supple without any bruit, lymphadenopathy, JVD, or thyromegaly. Chest: Clear to auscultation and percussion. Cardiac: Revealed a regular rhythm and rate. No murmurs, gallops, or rubs. Abdomen: Benign. Extremities: Revealed no clubbing, cyanosis, or edema. Diagnostic Data: As stated earlier. Impression And Plan: 1.Atypical chest pain, most likely gastric in nature. 2.Viral gastroenteritis. Echocardiogram is normal. EKG is normal. Troponin is negative. I do not think Ms. Chapa needs any more cardiac workup at this point. I agree with her present regimen. He r potassium needs to be corrected. She can go home whenever it is okay with Dr. Miranda. NB/MODL Voice ID: [id number] Report ID: [id number]
[2019-01-02] MEDS: NA CHLORIDE 0.9% 1,000 ML IV SCH ×4 (03:00→23:00)
[2019-01-02] MEDS ORDERED: IBUPROFEN 400 MG TAB PO PRN (04:00)
[2019-01-02] MEDS: IBUPROFEN 200 MG TAB PO SCH ×4 (04:26→21:00)
[2019-01-02 06:28] LABS: Absolute Lymphocytes (CBC) 1.7 K/uL (0.7-4.9); Basophils % 0.3 % (0-1.3); Eosinophils % 0.1 % (0-4.4); Hematocrit 25.7 % (36.0-45.0); Lymphocytes % 10.4 % (15.3-44.8); Monocytes % 9.7 % (3.3-12.3); RBC Red Blood Cell Count 2.93 M/uL (3.86-4.86)
[2019-01-02 06:52] LABS: ALT/SGPT 14 U/L (12-78); AST/SGOT 9 U/L (15-37); Albumin 2.9 g/dL (3.4-5.0); Alkaline Phosphatase 62 U/L (45-117); BUN Blood Urea Nitrogen 7 mg/dL (7-18); Bicarbonate 25 mmol/L (21-32); Bilirubin Total 0.4 mg/dL (0.2-1.0); Creatine Phosphokinase 37 U/L (26-192); Glucose Level 99 mg/dL (74-106); Phosphorus 2.1 mg/dL (2.5-4.9); Potassium 3.6 mmol/L (3.5-5.1); Protein, Total 6.8 g/dL (6.4-8.2); Sodium Level 141 mmol/L (136-145); Thyroid Stimulating Hormone 0.876 uIU/mL (0.360-3.740)
[2019-01-02] MEDS: PANTOPRAZOLE 40 MG INJ IVP SCH (09:29)
[2019-01-02] MEDS: ENOXAPARIN 40 MG/0.4 ML SQ SCH (09:30)
--- NOTE | 2019-01-02 10:04 | P.PN ---
Date of Service: 01/02/19 Patient spiked temp of 103. Patient will be started on acetaminophen and ibuprofen scheduled for 24 hrs. Then DC
--- NOTE | 2019-01-02 11:08 | EKG ---
Test Date: 2019-01-02 Test Time: 07:30:01 Rubber Insulator: GUSTAVO MEASUREMENT RESULTS: Intervals: Rate: 81 OK: 146 QRSD: 78 QT: 386 QTc: 448 Pettibone: P: 57 OK: 146 QRS: 40 T: 28 INTERPRETIVE STATEMENTS: Normal sinus rhythm Normal ECG Compared to ECG 12/31/2018 23:38:47 Sinus tachycardia no longer present Electronically Signed On 01-02-19 11:06:57 CDT by Royal Lee
--- NOTE | 2019-01-02 12:04 | P.PN ---
Subjective Date of Service: 01/02/19 Chief Complaint: Chest pain/intractable nausea and vomiting Pt seen and examined at bedside with RN. Chart Reviewed. Overnight Pt still continues to have fever of 103.0. This AM however doing well overall. No N/V or chills noted. Review of Systems 10-point ROS is otherwise unremarkable Physical Examination - Vital Signs Temperature: 97.1 F Blood Pressure: 102/56 Pulse: 18 Respirations: 18 Pulse Ox (%): 98 - Physical Exam General: Alert, In no apparent distress HEENT: Atraumatic, PERRLA, EOMI Neck: Supple, JVD not distended Respiratory: Clear to auscultation bilaterally, Normal air movement Cardiovascular: Regular rate/rhythm, Normal S1 S2 Gastrointestinal: Normal bowel sounds, No tenderness Musculoskeletal: No tenderness Integumentary: No rashes Neurological: Normal speech, Normal tone, Normal affect Lymphatics: No axilla or inguinal lymphadenopathy - Studies Laboratory Data (last 24 hrs) 01/01/19 11:47: Sodium 139, Potassium 3.5, BUN 7, Creatinine 0.72, Glucose 101, Phosphorus 2.1 L, Magnesium 1.9, Troponin I < 0.02 Medications List Reviewed: Yes Assessment And Plan - Current Problems (Diagnosis) (1) Sepsis Current Visit: Yes Status: Acute Plan: Sepsis 2.2 to UTI -WBC this AM trending down. -Currently on IV rocephin -Urine culture and Blood culture pending at this time Qualifiers: Sepsis type: sepsis due to unspecified organism Qualified Code(s): A41.9 - Sepsis, unspecified organism (2) UTI (urinary tract infection) Current Visit: Yes Status: Acute Plan: UA with UTI at this time -Uculture with 4+ gram negative rods -On IV rocephin Qualifiers: Urinary tract infection type: acute cystitis Hematuria presence: without hematuria Qualified Code(s): N30.00 - Acute cystitis without hematuria (3) Chest pain, rule out acute myocardial infarction Current Visit: Yes Status: Resolved - Plan Pending clinical Improvement at this time. Discharge Plan: Home Plan to discharge in: Greater than 2 days - Code Status/Comfort Care Code Status Assessed: Yes Critical Care: No
[2019-01-02] MEDS: CEFTRIAXONE/SWI 1gm 1 GM/10 ML SYR IV SCH (21:00)
[2019-01-03] MEDS: TRAMADOL 37.5mg/APAP 325mg PER TAB PO SCH ×3 (00:07→12:13)
[2019-01-03] MEDS ORDERED: KETOROLAC 30 MG/ML INJ IV ONE (04:48)
[2019-01-03 08:05] LABS: Absolute Lymphocytes (CBC) 0.8 K/uL (0.7-4.9); Basophils % 0.2 % (0-1.3); Eosinophils % 0.1 % (0-4.4); Hematocrit 27.3 % (36.0-45.0); Lymphocytes % 6.8 % (15.3-44.8); MPV 8.9 fL (7.6-11.3); Monocytes % 7.6 % (3.3-12.3)
[2019-01-03 08:06] LABS: ALT/SGPT 15 U/L (12-78); AST/SGOT 7 U/L (15-37); Albumin 2.8 g/dL (3.4-5.0); Alkaline Phosphatase 64 U/L (45-117); BUN Blood Urea Nitrogen 4 mg/dL (7-18); Bicarbonate 26 mmol/L (21-32); Bilirubin Total 0.3 mg/dL (0.2-1.0); Glucose Level 103 mg/dL (74-106); Potassium 3.6 mmol/L (3.5-5.1); Protein, Total 6.8 g/dL (6.4-8.2); Sodium Level 141 mmol/L (136-145)
[2019-01-03] MEDS: ENOXAPARIN 40 MG/0.4 ML SQ SCH (08:42)
[2019-01-03] MEDS: PANTOPRAZOLE 40 MG INJ IVP SCH (08:42)
[2019-01-03] MEDS: NA CHLORIDE 0.9% 1,000 ML IV SCH (09:00)
--- NOTE | 2019-01-03 11:35 | P.DS ---
Admission Date: 01/02/19 Discharge Date: 01/03/19 Disposition: ROUTINE DISCHARGE Discharge Condition: GOOD Reason for Admission: Chest pain/intractable nausea and vomiting Consultations: Cardiology - Problems (1) Sepsis Current Visit: Yes Status: Acute Qualifiers: Sepsis type: sepsis due to unspecified organism Qualified Code(s): A41.9 - Sepsis, unspecified organism (2) UTI (urinary tract infection) Current Visit: Yes Status: Acute Qualifiers: Urinary tract infection type: acute cystitis Hematuria presence: without hematuria Qualified Code(s): N30.00 - Acute cystitis without hematuria (3) Chest pain, rule out acute myocardial infarction Current Visit: Yes Status: Resolved Brief History of Present Illness: Patient is a 38-year-old female who was at work when she started having lightheadedness and chest discomfort. She went home and started having some nausea and vomiting. She was pale and feeling weak and signed consent lay down and go to bed. After sleeping for about 4 hr she woke up in her symptoms persisted. She decided to come into the emergency room for further evaluation. The worse symptom is having rigors. This is happened on 2 different occasions and she gets very shaky. I believe this is related to her having a fever. I think the chest discomfort may be related to gastritis or esophagitis. She possibly has a viral gastroenteritis. She is not able to keep anything down. She is having persistent vomiting and she failed testing to keep food down in the ER. She will be admitted to the hospital for further evaluation. Hospital Course: Overall during the hospital stay patient main stable Patient was initially admitted to the hospital for fever nausea vomiting was found to have sepsis secondary to urinary tract infection. Patient was initially admitted to the hospital. IV antibiotics were started Rocephin. Along with IV fluids. After 24-48 hr being on IV antibiotics and fluids patient did have marked improvement in her symptoms. Initially patient was having fever with the highest of 3.4 however patient had cooling blanket and fluids running. Patient's urine culture and blood cultures were done in the ER. Urine culture was positive for E. coli sensitive to oral Augmentin. At the time of improvement patient was switched over to oral Augmentin. Patient had marked improvement in her symptoms and thus was discharged home under stable condition was given prescription for Augmentin to be taken for total of 2 weeks. Vital Signs/Physical Exam: Temp Pulse Resp BP Pulse Ox 97.8 F 80 16 119/69 98 01/03/19 08:00 01/03/19 08:00 01/03/19 08:00 01/03/19 08:00 01/03/19 08:00 General: Alert, In no apparent distress HEENT: Atraumatic, PERRLA, EOMI Neck: Supple, JVD not distended Respiratory: Clear to auscultation bilaterally, Normal air movement Cardiovascular: Regular rate/rhythm, Normal S1 S2 Gastrointestinal: Normal bowel sounds, No tenderness Musculoskeletal: No tenderness Integumentary: No rashes Neurological: Normal speech, Normal tone, Normal affect Lymphatics: No axilla or inguinal lymphadenopathy Laboratory Data at Discharge: WBC 11.9 K/uL (4.3-10.9) H D 01/03/19 07:32 Hgb 9.1 g/dL (12.0-15.0) L 01/03/19 07:32 Hct 27.3 % (36.0-45.0) L 01/03/19 07:32 Plt Count 238 K/uL (152-406) 01/03/19 07:32 PT 13.3 SECONDS (9.5-12.5) H 12/31/18 23:55 INR 1.13 12/31/18 23:55 Sodium 141 mmol/L (136-145) 01/03/19 07:32 Potassium 3.6 mmol/L (3.5-5.1) 01/03/19 07:32 BUN 4 mg/dL (7-18) L 01/03/19 07:32 Creatinine 0.56 mg/dL (0.55-1.3) 01/03/19 07:32 Glucose 103 mg/dL (74-106) 01/03/19 07:32 Phosphorus 2.1 mg/dL (2.5-4.9) L 01/02/19 06:15 Magnesium 2.0 mg/dL (1.8-2.4) 01/03/19 07:32 Total Bilirubin 0.3 mg/dL (0.2-1.0) 01/03/19 07:32 AST 7 U/L (15-37) L 01/03/19 07:32 ALT 15 U/L (12-78) 01/03/19 07:32 Alkaline Phosphatase 64 U/L (45-117) 01/03/19 07:32 Troponin I < 0.02 ng/mL (0.0-0.045) 01/01/19 11:47 Triglycerides 91 mg/dL (<150) 01/01/19 05:12 Cholesterol 170 mg/dL (<200) 01/01/19 05:12 HDL Cholesterol 53 mg/dL (40-60) 01/01/19 05:12 Cholesterol/HDL Ratio 3.21 01/01/19 05:12 Home Medications: Amox/Clavulanate [Augmentin 875-125 Tab] 1 each PO BID 14 Days #28 tab 01/03/19 New Medications: Amox/Clavulanate [Augmentin 875-125 Tab] 1 each PO BID 14 Days #28 tab Patient Discharge Instructions: Please f.u with PCP in 1 to days post discharge. New medication. Augmentin 1 tab BID for 7 days Diet: Regular Activity: Ad daksha
== END 2019-01-03 14:57 | disposition home or self-care (01) | DRG 872 ==
LOC: ER 23:13 → ERHOLD 01-01 01:01 → 2ND 01-01 02:23 → OBSVTOIN 01-02 06:09
PROVIDERS: ADMIT Hospitalist; ATTEND Family Medicine
DX: A41.9 Sepsis, unspecified organism (principal); N30.00 Acute cystitis without hematuria; A08.4 Viral intestinal infection, unspecified; R07.89 Other chest pain; B96.20 Unspecified Escherichia coli [E. coli] as the cause of diseases classified elsewhere
CPT/HCPCS: 36415; 71045; 71275; 80048; 80053; 80061; 80076; 81003; 81025; 82550; 82962; 83605; 83735; 83880; 84100; 84145; 84439; 84443; 84484; 85025; 85610; 87040; 87077; 87086; 87088; 87186; 87804; 93005; 93306; 96361; 96365; 96375; 99285; C9113; J0456; J0696; J1650; J2270; J2405; J7030; Q9967

== ENCOUNTER 2019-01-20 21:33 | Observation (INO) | payer SELFPAY ==
[2019-01-20] MEDS ORDERED: NA CHLORIDE 0.9% 1,000 ML ONE (22:03)
[2019-01-20] MEDS ORDERED: MORPHINE 4 MG/ML SYR ONE ×2 (22:03→23:00)
[2019-01-20] MEDS ORDERED: ONDANSETRON 4 MG/2 ML VIAL ONE (22:03)
[2019-01-20 22:19] LABS: Urine Blood 3+ (NEG); Urine Glucose NEGATIVE (NEG); Urine Protein 2+ (NEG)
[2019-01-20 22:39] LABS: Urine Mucus 1+ /HPF (NONE SEEN)
[2019-01-20 22:43] LABS: Calcium Oxalate Crystals- Ur FEW (NONE SEEN); Urine Bacteria <20 /HPF (<20); Urine Culture Reflex Order NOT NEEDED; Urine RBC >50 /HPF (NONE SEEN)
[2019-01-20] MEDS ORDERED: KETOROLAC 30 MG/ML INJ ONE (22:51)
[2019-01-20 22:52] LABS: Absolute Lymphocytes (CBC) 3.2 K/uL (0.7-4.9); Basophils % 1.4 % (0-1.3); Hematocrit 34.2 % (36.0-45.0); Lymphocytes % 27.7 % (15.3-44.8); MPV 9.4 fL (7.6-11.3); RBC Red Blood Cell Count 3.87 M/uL (3.86-4.86)
[2019-01-20 23:00] LABS: ALT/SGPT 16 U/L (12-78); AST/SGOT 6 U/L (15-37); Albumin 3.9 g/dL (3.4-5.0); Alkaline Phosphatase 88 U/L (45-117); BUN Blood Urea Nitrogen 11 mg/dL (7-18); Bicarbonate 25 mmol/L (21-32); Bilirubin Direct < 0.1 mg/dL (0-0.2); Bilirubin Total 0.4 mg/dL (0.2-1.0); Glucose Level 111 mg/dL (74-106); Lipase 170 U/L (73-393); Potassium 3.6 mmol/L (3.5-5.1); Protein, Total 8.2 g/dL (6.4-8.2); Sodium Level 135 mmol/L (136-145)
[2019-01-21] MEDS ORDERED: FENTANYL CITR 100 MCG/2 ML ONE (00:58)
--- NOTE | 2019-01-21 00:58 | ER ---
Nurse's Notes [facility] Name: Margareth Chapa Age: 38 yrs Sex: Female : 1980 Arrival Date: 01/20/2019 Time: 21:36 Bed 15 Private MD: Diagnosis: Hydronephrosis with renal and ureteral calculous obstruction Presentation: 01/20 21:40 Presenting complaint: Patient states: Right back pain that radiates to the abdomen. aj1 Reports nausea Denies V/D. Transition of care: patient was not received from another setting of care. Onset of symptoms was January 20, 2019. Risk Assessment: Do you want to hurt yourself or someone else? Patient reports no desire to harm self or others. Initial Sepsis Screen: Does the patient meet any 2 criteria? No. Patient's initial sepsis screen is negative. Does the patient have a suspected source of infection? No. Patient's initial sepsis screen is negative. Care prior to arrival: None. 21:40 Method Of Arrival: Ambulatory aj 21:40 Acuity: AURELIO 2 aj1 Triage Assessment: 21:40 General: Appears uncomfortable, Behavior is cooperative, crying, restless. Pain: aj1 Complains of pain in posterior aspect of right lateral abdomen and anterior aspect of right lateral abdomen Pain currently is 10 out of 10 on a pain scale. Neuro: Level of Consciousness is awake, alert, obeys commands. Cardiovascular: Patient's skin is warm and dry. Respiratory: Airway is patent Respiratory effort is even, unlabored, Respiratory pattern is regular, symmetrical. : Denies burning with urination, urinary frequency. Musculoskeletal: No signs and/or symptoms reported regarding the musculoskeletal system. Circulation, motion, and sensation intact. 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 - Social history:: Smoking status: Patient/guardian denies using tobacco. - Ebola Screening: : Patient denies travel to an Ebola-affected area in the 21 days before illness onset. Screenin:55 Abuse screen: Denies threats or abuse. Denies injuries from another. Nutritional ca1 screening: No deficits noted. On. Tuberculosis screening: No symptoms or risk factors identified. Fall Risk IV access (20 points). Assessment: 21:42 Reassessment: Sarai Acuna NP at bedside to evaluate patient. aj1 21:45 General: Appears in no apparent distress. comfortable, Behavior is cooperative, ca1 appropriate for age, crying. Pain: Complains of pain in anterior aspect of right lateral abdomen and posterior aspect of right lateral abdomen Pain radiates to right low back Pain currently is 10 out of 10 on a pain scale. Pain began around 1700 today Is intermittent. Neuro: Level of Consciousness is awake, alert, obeys commands, Oriented to person, place, time, situation. Cardiovascular: Heart tones S1 S2 present Capillary refill < 3 seconds Patient's skin is warm and dry. Pulses are all present. Respiratory: Airway is patent Respiratory effort is even, unlabored, Respiratory pattern is regular, symmetrical, Breath sounds are clear bilaterally. GI: Abdomen is round non-distended, Bowel sounds present X 4 quads. Abd is soft and non tender X 4 quads. : Urine is clear. EENT: No deficits noted. No signs and/or symptoms were reported regarding the EENT system. Derm: Skin is intact, is healthy with good turgor, Skin is pink, warm \T\ dry. Musculoskeletal: Circulation, motion, and sensation intact. Capillary refill < 3 seconds, Range of motion: intact in all extremities. 22:56 Reassessment: Patient appears in no apparent distress at this time. Patient and/or ca1 family updated on plan of care and expected duration. Pain level reassessed. Patient is alert, oriented x 3, equal unlabored respirations, skin warm/dry/pink. Pt still standing and refusing to lie down. Reports it hurts more to be on that position. 23:49 Reassessment: Patient appears in no apparent distress at this time. Patient and/or ca1 family updated on plan of care and expected duration. Pain level reassessed. Patient is alert, oriented x 3, equal unlabored respirations, skin warm/dry/pink. Pt back from CT. Appears relaxed, sitting on bed at this time. 01/21 00:32 Reassessment: Patient appears in no apparent distress at this time. Patient and/or ca1 family updated on plan of care and expected duration. Pain level reassessed. Patient is alert, oriented x 3, equal unlabored respirations, skin warm/dry/pink. 01:43 Reassessment: Patient appears in no apparent distress at this time. No changes from la1 previously documented assessment. Patient and/or family updated on plan of care and expected duration. Pain level reassessed. Patient is alert, oriented x 3, equal unlabored respirations, skin warm/dry/pink. 03:20 Reassessment: Patient appears in no apparent distress at this time. Patient and/or cc3 family updated on plan of care and expected duration. Pain level reassessed. Patient is alert, oriented x 3, equal unlabored respirations, skin warm/dry/pink. Patient left ER for admission vitally stable by wheelchair escorted by urgent care techniciantej Sahu and the patient's relative. No valuables left in the patient's room. Patient denies pain at this time. Patient states feeling better. Patient states symptoms have improved. Vital Signs: 01/20 21:40 BP 106 / 70; Pulse 78; Resp 18; Pulse Ox 99% on R/A; Weight 79.38 kg (R); Height 5 ft. aj1 4 in. (162.56 cm) (R); Pain 10/10; 22:56 BP 129 / 93; Pulse 81; Resp 16 S; Pulse Ox 100% on R/A; ca1 23:49 BP 131 / 84; Pulse 75; Resp 16; Temp 97.8(O); Pulse Ox 99% on R/A; Pain 6/10; ca1 01/21 00:32 BP 128 / 77; Pulse 76; Resp 16 S; Temp 98.1(O); Pulse Ox 100% on R/A; ca1 01:42 BP 110 / 55; Pulse 74; Resp 16; Pulse Ox 98% on R/A; la1 03:00 BP 117 / 64; Pulse 64; Resp 16 S; Temp 98.1(O); Pulse Ox 99% on R/A; cc3 01/20 21:40 Body Mass Index 30.04 (79.38 kg, 162.56 cm) aj1 ED Course: 01/20 21:36 Patient arrived in ED. ds1 21:40 Arm band placed on Patient placed in an exam room. aj1 21:41 Triage completed. aj1 21:41 Nahum Acuna, STEPHANY is PHCP. pm1 21:41 Kemar Nelson MD is Attending Physician. pm1 21:42 Erma Braun, MAXI is Primary Nurse. ca1 21:55 Patient has correct armband on for positive identification. Placed in gown. Bed in low ca1 position. Call light in reach. Side rails up X 1. Pulse ox on. NIBP on. Warm blanket given. 21:55 Missed attempt(s): 20 gauge in right antecubital area. Bleeding controlled, band aid ca1 applied, catheter tip intact. 22:00 Missed attempt(s): 22 gauge in left antecubital area. Bleeding controlled, band aid aj1 applied, catheter tip intact. 22:00 Missed attempt(s): 22 gauge in right forearm. Bleeding controlled, band aid applied, aj1 catheter tip intact. 22:03 Radiology exam delayed due to lab results not completed at this time. (BUN/Creatinine). mw3 22:05 Accessed peripheral vein via ultrasound, utilizing dynamic ultrasound technique using ca1 18G Sureflo IV catheter ,sterile technique, per hospital protocol. Clean \T\ dry. Dressing intact. Good blood return. Flushes easily. By Yung Perez RN. 01/21 00:33 No provider procedures requiring assistance completed. ca1 00:35 CT Stone Protocol In Process Unspecified. EDMS 00:56 Fito Philip MD is Hospitalizing Provider. pm1 00:57 Report given to Yung Perez RN. ca1 02:24 X-ray completed. Patient tolerated procedure well. kw 02:26 Abdomen 1 View (KUB) XRAY In Process Unspecified. EDMS 03:00 Patient admitted, IV remains in place. cc3 Administered Medications: 01/20 22:00 Drug: NS 0.9% 1000 ml Route: IV; Rate: 1000 ml; Site: right antecubital; ca1 22:37 Follow up: Response: No adverse reaction; IV Status: Completed infusion ca1 22:00 Drug: Zofran 4 mg Route: IVP; Site: right antecubital; ca1 22:37 Follow up: Response: No adverse reaction; Nausea is decreased ca1 22:10 Drug: morphine 4 mg Route: IVP; Site: right antecubital; ca1 22:37 Follow up: Response: No adverse reaction; Pain is unchanged, physician notified ca1 22:36 Drug: TORadol 30 mg Route: IVP; Site: right antecubital; ca1 22:46 Follow up: Response: No adverse reaction; Pain is unchanged, physician notified ca1 22:45 Drug: morphine 4 mg Route: IVP; Site: right antecubital; ca1 01/21 00:51 Follow up: Response: No adverse reaction; Pain is unchanged, physician notified ca1 00:42 Drug: Phenergan 12.5 mg Route: IVP; Site: right antecubital; ca1 01:14 Follow up: Response: No adverse reaction la1 00:51 Drug: fentaNYL (PF) 25 mcg Route: IVP; Site: right antecubital; ca1 01:14 Follow up: Response: No adverse reaction; Pain is decreased la1 01:23 Drug: Cipro 400 mg Volume: 200 ml; Route: IVPB; Infused Over: 60 mins; Site: right la1 antecubital; 01:26 Follow up: IV Status: Infusion continued upon admission la1 01:41 Drug: Phenergan 12.5 mg Route: IVP; Site: right antecubital; la1 03:00 Follow up: Response: No adverse reaction; Nausea is decreased; Vomiting decreased cc3 01:42 Drug: fentaNYL (PF) 25 mcg Route: IVP; Site: right antecubital; la1 03:00 Follow up: Response: No adverse reaction; Pain is decreased cc3 Outcome: 00:57 Decision to Hospitalize by Provider. pm1 02:50 Admitted to Med/surg accompanied by tech, family with patient, via wheelchair, room cc3 222, with chart, Report called to MAXI Barragan handed over the report to MAXI Finch 02:50 Condition: stable 02:50 Instructed on the need for admit, Demonstrated understanding of instructions. 03:23 Patient left the ED. cc3 Signatures: Dispatcher [employer] EDAnay Agosto RN RN aj1 Tatum Garay ds1 Iveth Penny Lee, RN RN la1 Nahum Acuna NP UPPER EXTREMITY SURGEON pm1 Shikha Sebastian mw3 Maryjane Hope cc3 Erma Braun RN RN ca1 Corrections: (The following items were deleted from the chart) 01/20 23:51 23:49 Reassessment: Patient appears in no apparent distress at this time. Patient ca1 and/or family updated on plan of care and expected duration. Pain level reassessed. Patient is alert, oriented x 3, equal unlabored respirations, skin warm/dry/pink. Pt back from CT. Appears relaxed. ca1 01/21 02:24 02:24 X-ray completed. Portable x-ray completed in exam room. Patient tolerated kw procedure well. kw
--- NOTE | 2019-01-21 00:59 | EDPHYS ---
Physician Documentation [facility] Name: Margareth Chapa Age: 38 yrs Sex: Female : 1980 Arrival Date: 01/20/2019 Time: 21:36 Bed 15 Private MD: ED Physician Kemar Nelson HPI: 01/21 00:00 This 38 yrs old Female presents to ER via Ambulatory with complaints of Right pm1 flank pain. 00:00 The patient complains of pain in the right low back. The pain radiates to the right pm1 inguinal area. Onset: The symptoms/episode began/occurred today. Modifying factors: The symptoms are alleviated by nothing. the symptoms are aggravated by nothing. Associated signs and symptoms: Pertinent positives: nausea, Pertinent negatives: dysuria, fever. Severity of pain: in the emergency department the pain is actually worse. The patient has not experienced similar symptoms in the past. The patient has been recently seen by a physician: 17 day(s) ago, with different complaint(s), and apparently was diagnosed with sepsis, UTI, chest pain. 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 - Social history:: Smoking status: Patient/guardian denies using tobacco. - Ebola Screening: : Patient denies travel to an Ebola-affected area in the 21 days before illness onset. ROS: 01/21 00:00 Constitutional: Negative for fever, chills, and weight loss, Eyes: Negative for injury, pm1 pain, redness, and discharge, ENT: Negative for injury, pain, and discharge, Neck: Negative for injury, pain, and swelling, Cardiovascular: Negative for chest pain, palpitations, and edema, Respiratory: Negative for shortness of breath, cough, wheezing, and pleuritic chest pain. : Negative for injury, bleeding, discharge, and swelling, MS/Extremity: Negative for injury and deformity, Skin: Negative for injury, rash, and discoloration, Neuro: Negative for headache, weakness, numbness, tingling, and seizure. Abdomen/GI: Positive for abdominal pain, nausea and vomiting, Negative for diarrhea, constipation. Back: Positive for flank pain, on the right. Exam: 00:00 Constitutional: This is a well developed, well nourished patient who is awake, alert, pm1 and in no acute distress. Head/Face: Normocephalic, atraumatic. Eyes: Pupils equal round and reactive to light, extra-ocular motions intact. Lids and lashes normal. Conjunctiva and sclera are non-icteric and not injected. Cornea within normal limits. Periorbital areas with no swelling, redness, or edema. ENT: Nares patent. No nasal discharge, no septal abnormalities noted. Tympanic membranes are normal and external auditory canals are clear. Oropharynx with no redness, swelling, or masses, exudates, or evidence of obstruction, uvula midline. Mucous membranes moist. Neck: Trachea midline, no thyromegaly or masses palpated, and no cervical lymphadenopathy. Supple, full range of motion without nuchal rigidity, or vertebral point tenderness. No Meningismus. Chest/axilla: Normal chest wall appearance and motion. Nontender with no deformity. No lesions are appreciated. Cardiovascular: Regular rate and rhythm with a normal S1 and S2. No gallops, murmurs, or rubs. Normal PMI, no JVD. No pulse deficits. Respiratory: Lungs have equal breath sounds bilaterally, clear to auscultation and percussion. No rales, rhonchi or wheezes noted. No increased work of breathing, no retractions or nasal flaring. Abdomen/GI: Soft, non-tender, with normal bowel sounds. No distension or tympany. No guarding or rebound. No evidence of tenderness throughout. 00:00 Skin: Warm, dry with normal turgor. Normal color with no rashes, no lesions, and no evidence of cellulitis. MS/ Extremity: Pulses equal, no cyanosis. Neurovascular intact. Full, normal range of motion. 00:00 Back: normal spinal alignment noted, CVA tenderness, that is moderate, is noted on the right. 00:00 Neuro: Orientation: is normal, Motor: is normal, moves all fours, strength is normal, strength is 5/5 in all extremities. Vital Signs: 01/20 21:40 BP 106 / 70; Pulse 78; Resp 18; Pulse Ox 99% on R/A; Weight 79.38 kg (R); Height 5 ft. aj1 4 in. (162.56 cm) (R); Pain 10/10; 22:56 BP 129 / 93; Pulse 81; Resp 16 S; Pulse Ox 100% on R/A; ca1 23:49 BP 131 / 84; Pulse 75; Resp 16; Temp 97.8(O); Pulse Ox 99% on R/A; Pain 6/10; ca1 01/21 00:32 BP 128 / 77; Pulse 76; Resp 16 S; Temp 98.1(O); Pulse Ox 100% on R/A; ca1 01:42 BP 110 / 55; Pulse 74; Resp 16; Pulse Ox 98% on R/A; la1 03:00 BP 117 / 64; Pulse 64; Resp 16 S; Temp 98.1(O); Pulse Ox 99% on R/A; cc3 01/20 21:40 Body Mass Index 30.04 (79.38 kg, 162.56 cm) aj1 MDM: 01/20 21:47 Patient medically screened. pm1 01/21 00:00 Physician consultation: Fito Philip MD was called at 01:12, was contacted at 01:12, pm1 regarding admission, patient's condition, and will see patient. 00:55 Physician consultation: Smitha Anglin MD was called at 00:52, was contacted at 00:52, pm1 regarding consult, patient's condition, and will see patient tomorrow, would like admission per Dr. Fito Philip MD NPO, Cipro 400 mg IV BID. 00:56 Data reviewed: vital signs. Data interpreted: Pulse oximetry: on room air is 100 %. pm1 Interpretation: normal. Counseling: I had a detailed discussion with the patient and/or guardian regarding: the historical points, exam findings, and any diagnostic results supporting the discharge/admit diagnosis, lab results, radiology results, the need for further work-up and treatment in the hospital. 01/20 21:47 Order name: Basic Metabolic Panel; Complete Time: 23:03 pm1 01/20 21:47 Order name: CBC with Diff; Complete Time: 23:03 pm1 01/20 21:47 Order name: Creatinine for Radiology; Complete Time: 23:03 pm1 01/20 21:47 Order name: Hepatic Function; Complete Time: 23:03 pm1 01/20 21:47 Order name: Lipase; Complete Time: 23:03 pm1 01/20 21:47 Order name: Urine Microscopic Only; Complete Time: 22:44 pm1 01/20 22:16 Order name: Urine Dipstick--Ancillary (enter results); Complete Time: 22:25 cm6 01/20 22:16 Order name: Urine --Ancillary (enter results); Complete Time: 22:25 cm6 01/21 02:03 Order name: Comprehensive Metabolic Panel EDMS 01/21 02:03 Order name: Magnesium EDMS 01/21 02:03 Order name: Phosphorus EDMS 01/21 02:03 Order name: Protime (+INR) EDMS 01/21 02:04 Order name: CBC with Automated Diff EDMS 01/21 02:04 Order name: PTT, Activated Partial Thromb EDMS 01/20 21:47 Order name: IV Saline Lock; Complete Time: 22:14 pm1 01/20 22:49 Order name: CT Stone Protocol pm1 01/21 01:52 Order name: Abdomen 1 View (KUB) XRAY pm1 01/21 02:04 Order name: CONS Physician Consult EDNY 01/21 02:04 Order name: NPO EDNY 01/20 21:47 Order name: Labs collected and sent; Complete Time: 22:14 pm1 01/20 21:47 Order name: Urine Dipstick-Ancillary (obtain specimen); Complete Time: 22:16 pm1 01/20 21:47 Order name: Urine Test (obtain specimen); Complete Time: 22:13 pm1 01/21 01:15 Order name: NPO; Complete Time: 01:14 pm1 Administered Medications: 01/20 22:00 Drug: NS 0.9% 1000 ml Route: IV; Rate: 1000 ml; Site: right antecubital; ca1 22:37 Follow up: Response: No adverse reaction; IV Status: Completed infusion ca1 22:00 Drug: Zofran 4 mg Route: IVP; Site: right antecubital; ca1 22:37 Follow up: Response: No adverse reaction; Nausea is decreased ca1 22:10 Drug: morphine 4 mg Route: IVP; Site: right antecubital; ca1 22:37 Follow up: Response: No adverse reaction; Pain is unchanged, physician notified ca1 22:36 Drug: TORadol 30 mg Route: IVP; Site: right antecubital; ca1 22:46 Follow up: Response: No adverse reaction; Pain is unchanged, physician notified ca1 22:45 Drug: morphine 4 mg Route: IVP; Site: right antecubital; ca1 01/21 00:51 Follow up: Response: No adverse reaction; Pain is unchanged, physician notified ca1 00:42 Drug: Phenergan 12.5 mg Route: IVP; Site: right antecubital; ca1 01:14 Follow up: Response: No adverse reaction la1 00:51 Drug: fentaNYL (PF) 25 mcg Route: IVP; Site: right antecubital; ca1 01:14 Follow up: Response: No adverse reaction; Pain is decreased la1 01:23 Drug: Cipro 400 mg Volume: 200 ml; Route: IVPB; Infused Over: 60 mins; Site: right la1 antecubital; 01:26 Follow up: IV Status: Infusion continued upon admission la1 01:41 Drug: Phenergan 12.5 mg Route: IVP; Site: right antecubital; la1 03:00 Follow up: Response: No adverse reaction; Nausea is decreased; Vomiting decreased cc3 01:42 Drug: fentaNYL (PF) 25 mcg Route: IVP; Site: right antecubital; la1 03:00 Follow up: Response: No adverse reaction; Pain is decreased cc3 Disposition: 01/21/19 00:57 Hospitalization ordered by Fito Philip for Observation. Preliminary diagnosis is Hydronephrosis with renal and ureteral calculous obstruction. - Bed requested for Telemetry/MedSurg (observation). - Status is Observation. cc3 - Condition is Stable. - Problem is new. - Symptoms have improved. UTI on Admission? No Addendum: 01/22/2019 04:33 Co-signature as Attending Physician, Kemar Nelson MD I agree with the assessment and t w4 plan of care. Signatures: Dispatcher [employer] EDMS Anay Moses RN RN aj1 Emilia Simon RN RN Yung Kim RN RN la1 Nahum Acuna, CONCRETE BUILDING ASSEMBLER CONCRETE BUILDING ASSEMBLER pm1 Kemar Nelson MD MD tw4 Maryjane Hope cc3 Erma Braun RN RN ca1 Corrections: (The following items were deleted from the chart) 01/20 22:52 21:54 Abdomen Pelvis W Con+CT.RAD.BRZ ordered. EDMS EDMS 01/21 02:45 00:57 Hospitalization Ordered by Fito Philip MD for Observation. Preliminary mw diagnosis is Hydronephrosis with renal and ureteral calculous obstruction. Bed requested for Telemetry/MedSurg (observation). Status is Observation. Condition is Stable. Problem is new. Symptoms have improved. UTI on Admission? No. pm1 02:45 02:45 01/21/2019 00:57 Hospitalization Ordered by Fito Philip MD for Observation. mw Preliminary diagnosis is Hydronephrosis with renal and ureteral calculous obstruction. Bed requested for Telemetry/MedSurg (observation). Status is Observation. Condition is Stable. Problem is new. Symptoms have improved. UTI on Admission? No. mw 03:23 02:45 01/21/2019 00:57 Hospitalization Ordered by Fito Philip MD for Observation. cc3 Preliminary diagnosis is Hydronephrosis with renal and ureteral calculous obstruction. Bed requested for Telemetry/MedSurg (observation). Status is Observation. Condition is Stable. Problem is new. Symptoms have improved. UTI on Admission? No. mw
[2019-01-21] MEDS ORDERED: PROMETHAZINE 25 MG/ML VIAL ONE ×2 (01:00→01:45)
[2019-01-21] MEDS ORDERED: CIPROFLOXACIN 400mg IV 400 MG/200 ML BAG IV ONE (01:33)
[2019-01-21] MEDS ORDERED: MORPHINE 4 MG/ML SYR IV PRN (01:53)
[2019-01-21] MEDS: NA CHLORIDE 0.9% 1,000 ML IV SCH ×4 (02:00→23:33)
[2019-01-21] MEDS ORDERED: CEFAZOLIN SODIUM 1 GM/VIAL ONE (03:25)
[2019-01-21] MEDS ORDERED: CEFAZOLIN/NS 1gm 1 GM/50 ML BAG IVPB SCH (06:00)
[2019-01-21 07:40] LABS: Absolute Lymphocytes (CBC) 2.4 K/uL (0.7-4.9); Basophils % 0.4 % (0-1.3); Hematocrit 29.7 % (36.0-45.0); Lymphocytes % 21.7 % (15.3-44.8); MPV 9.1 fL (7.6-11.3); RBC Red Blood Cell Count 3.38 M/uL (3.86-4.86)
[2019-01-21 07:50] LABS: Protime INR 1.08
[2019-01-21 07:51] LABS: ALT/SGPT 15 U/L (12-78); AST/SGOT 9 U/L (15-37); Albumin 3.1 g/dL (3.4-5.0); Alkaline Phosphatase 73 U/L (45-117); BUN Blood Urea Nitrogen 8 mg/dL (7-18); Bicarbonate 25 mmol/L (21-32); Bilirubin Total 0.4 mg/dL (0.2-1.0); Glucose Level 99 mg/dL (74-106); Magnesium 1.9 mg/dL (1.8-2.4); Phosphorus 3.9 mg/dL (2.5-4.9); Potassium 3.9 mmol/L (3.5-5.1); Protein, Total 7.2 g/dL (6.4-8.2); Sodium Level 140 mmol/L (136-145)
--- NOTE | 2019-01-21 07:52 | P.HP ---
Certification for Inpatient Patient admitted to: Observation With expected LOS: <2 Midnights Patient will require the following post-hospital care: None Practitioner: I am a practitioner with admitting privileges, knowledge of patient current condition, hospital course, and medical plan of care. Services: Services provided to patient in accordance with Admission requirements found in Title 42 Section 412.3 of the Code of Federal Regulations Patient History Date of Service: 01/21/19 Reason for admission: Obstructive uropathy/nephrolithiasis with hydronephrosis History of Present Illness: Patient is a 38-year-old female who is been in the hospital on 2 different occasions with pyelonephritis. She was diagnose with a pyelonephritis and made as well as early December. She has been treated with antibiotics. She grew out an enterococcus species as well as an E coli. Both susceptible to penicillin. Patient has been on Augmentin. She was visiting her ex- with their children when suddenly started having back pain. She came into the emergency room for further evaluation. In the ER she was found have a right-sided nephrolithiasis-most likely magnesium struvite stones-with right-sided hydronephrosis. Urology was consulted and plan to do surgery in a.m. Continue with IV antibiotics and pain control at this time. Allergies No Known Allergies Allergy (Verified 01/21/19 04:18) Home Medications: Amox/Clavulanate [Augmentin 875-125 Tab] 1 each PO BID 14 Days #28 tab 01/03/19 - Past Medical/Surgical History Has patient received pneumonia vaccine in the past: No Diabetic: No -: UTI -: Bunions -: E.coli in the urine -: Tubal ligation -: Appendectomy -: R bunion surgery - Family History Father Medical History: Diabetes Mother Medical History: Hypertension, Diabetes - Social History Smoking Status: Never smoker Alcohol use: Yes CD- Drugs: No Caffeine use: Yes Place of Residence: Home Review of Systems 10-point ROS is otherwise unremarkable Physical Examination - Vital Signs Temperature: 98.2 F Blood Pressure: 108/58 Pulse: 71 Respirations: 15 Pulse Ox (%): 98 - Physical Exam General: Alert, In no apparent distress, Oriented x3 HEENT: Atraumatic, PERRLA, Mucous membr. moist/pink, EOMI, Sclerae nonicteric Neck: Supple, 2+ carotid pulse no bruit, No LAD, Without JVD or thyroid abnormality Respiratory: Clear to auscultation bilaterally, Normal air movement Cardiovascular: Regular rate/rhythm, Normal S1 S2, No murmurs Gastrointestinal: Normal bowel sounds, Soft and benign, Non-distended, Tenderness (Right-sided flank tenderness) Musculoskeletal: No clubbing, No swelling, No tenderness Integumentary: No rashes Neurological: Normal gait, Normal speech, Normal strength at 5/5 x4 extr, Normal tone, Sensation intact, Cranial nerves 3-12 intact, Normal affect Lymphatics: No axilla or inguinal lymphadenopathy - Studies Laboratory Data (last 24 hrs) 01/20/19 22:10: Creatinine 0.87 01/20/19 22:10: WBC 11.7 H, Hgb 11.0 L, Hct 34.2 L, Plt Count 464 H 01/20/19 22:10: Sodium 135 L, Potassium 3.6, BUN 11, Creatinine 0.85, Glucose 111 H, Total Bilirubin 0.4, AST 6 L, ALT 16, Alkaline Phosphatase 88, Lipase 170 Assessment & Plan - Problems (Diagnosis) (1) Obstructive uropathy Current Visit: Yes Status: Acute (2) Nephrolithiasis Current Visit: Yes Status: Acute (3) Hydronephrosis, right Current Visit: Yes Status: Acute (4) History of UTI Current Visit: Yes Status: Acute - Plan Plan: 1. IV hydration 2. IV antibiotics 3. NPO after midnight 4. Pain control 5. Urology consultation 6. Patient low risk for any cardiopulmonary complications. Benefit outweigh the risk and will proceed with cystoscopy 7. GI and DVT prophylaxis Discharge Plan: Home Plan to discharge in: 48 Hours - Advance Directives Does patient have a Living Will: No Does patient have a Durable POA for Healthcare: No - Code Status/Comfort Care Code Status Assessed: Yes Code Status: Full Code Critical Care: No Time Spent Managing PTS Care (In Minutes): 50
--- NOTE | 2019-01-21 08:03 | RAD REPORT ---
EXAM DESCRIPTION: RAD - Abdomen 1 View (KUB) - 01/21/2019 2:25 am CLINICAL HISTORY: Abdomen pain. FINDINGS: The bowel gas pattern is unremarkable. Bilateral renal calculi Patient's known distal right ureteral calculi are not clearly seen on this exam. Phleboliths are note d
[2019-01-21] MEDS ORDERED: ENOXAPARIN 30 MG/0.3 ML SQ SCH (09:00)
--- NOTE | 2019-01-21 10:00 | RAD REPORT ---
EXAM DESCRIPTION: CT - Stone Protocol - 01/21/2019 4:49 am CLINICAL HISTORY: The patient is 38 years old and is Female; FLANK PAIN TECHNIQUE: Axial computed tomography images of the abdomen and pelvis without intravenous contrast. Sagittal and coronal reformatted images were created and reviewed. This CT exam was performed usi ng one or more of the following dose reduction techniques: automated exposure control, adjustment o f the mA and/or kV according to patient size, and/or use of iterative reconstruction technique. COMPARISON: No relevant prior studies available. FINDINGS: LUNG BASES: Unremarkable. No mass. No consolidation. ABDOMEN: LIVER: Homogeneous without focal mass. GALLBLADDER AND BILE DUCTS: No calcified stones. No ductal dilation. PANCREAS: Unremarkable. No ductal dilation. SPLEEN: Unremarkable. ADRENALS: Unremarkable. No mass. KIDNEYS AND URETERS: Moderate right hydroureteronephrosis is present secondary to 2 right distal ureteral calculi measuring in conglomerate 0.9 cm. Edema of the right kidney with associated perin ephric and periureteral stranding is present. Bilateral intrarenal calcifications are present. The le ft kidney is unremarkable. STOMACH AND BOWEL: The stomach is distended with food contents. The small bowel is relatively no rmal in caliber. Stool is present throughout colon. There is no mucosal thickening or evidence of bow el obstruction. PELVIS: APPENDIX: The appendix is surgically absent. BLADDER: Bladder is nearly empty. No stones. REPRODUCTIVE: A 2.7 cm left ovarian cyst is present. No follow-up imaging is recommended. The ut erus and right ovary are unremarkable. ABDOMEN and PELVIS: INTRAPERITONEAL SPACE: Unremarkable. No free air. No significant fluid collection. BONES/JOINTS: No acute fracture. SOFT TISSUES: The soft tissues are normal. VASCULATURE: Unremarkable. No abdominal aortic aneurysm. LYMPH NODES: Unremarkable. No enlarged lymph nodes. IMPRESSION: 1. Moderate right hydroureteronephrosis is present secondary to 2 right distal uretera l calculi measuring in conglomerate 0.9 cm. 2. Bilateral nephrolithiasis. Electronically signed by: Shruthi Cruz MD 01/21/2019 12:34 AM CDT Due to temporary technical issues with the PACS/Fluency reporting system, reports are being signed by the in house radiologist as a courtesy to ensure prompt reporting. The interpreting radiologist is f arcadioly responsible for the content of the report.
--- NOTE | 2019-01-21 10:15 | EKG ---
Test Date: 2019-01-21 Test Time: 08:05:13 Internet Sourcer: GUSTAVO MEASUREMENT RESULTS: Intervals: Rate: 63 ME: 152 QRSD: 94 QT: 432 QTc: 442 [place]: P: 50 ME: 152 QRS: 31 T: 18 INTERPRETIVE STATEMENTS: Normal sinus rhythm with sinus arrhythmia Normal ECG Compared to ECG 01/02/2019 07:30:01 No significant changes Electronically Signed On 01-21-19 10:15:37 CDT by Agustín Pryor
[2019-01-21] MEDS: CEFAZOLIN/SWI 1gm 1 GM/10 ML SYR IV SCH ×3 (12:06→23:28)
--- NOTE | 2019-01-21 14:06 | CON ---
Indication: This 38-year-old lady who has a history of stones. Does not drink much water, maybe 1 glass of water per day only with her meals drink water. She has 2 stones in the right distal ureter by the UVJ measuring 9 mm of total, causing hydronephrosis and pain. She has had stones before. We gave her the option of ESWL, possible cysto stent versus ureteroscopy and extraction of stent. She wished to have the ESWL in the morning. All the general information , alternatives, and risks were given. Allergies: NO KNOWN DRUG ALLERGIES. Home Medication: Augmentin. Past Medical And Surgical History: UTI, bunions, E coli in urine, tubal ligation, appendectomy, right bunion surgery. Family History: Father has diabetes. Mother has hypertension, diabetes. Social History: No smoking, some alcohol use. Some drug use. Some caffeine use. Resides at home Review of Systems: 10-point review of systems is otherwise unremarkable. Physical Examination: Vital Signs: Afebrile, stable. HEENT: Atraumatic and normocephalic. General Appearance: Alert, oriented, in no acute distress. HEENT: Atraumatic, normocephalic. Neck: Supple. Respiratory: Clear. Cardiovascular: S1, S2. Gastrointestinal: Normal bowel sounds. Soft. Musculoskeletal: No clubbing. Skin: No rashes. Neurologic: Intact. Lymphatics: No lymphadenopathy. Laboratory Studies: Reviewed. Creatinine 0.8. Urine pH is about 7. Electrolytes normal. Assessment: Obstructive uropathy with 2 stones in the right distal ureter, 9 mm in total. Stones were seen on CT but not on KUB, possible could be uric acid stone, possible passed. Her pain level is much better now, but we will go ahead tomorrow and do CT PELVIS AND POSSIBLE cysto, right retrograde to evaluate the stones. She knows all the risks and benefits and wishes to proceed. CARMELITA/MARYLUL Voice ID: [id number] Report ID: [id number] ANA
--- NOTE | 2019-01-21 14:12 | RAD REPORT ---
EXAM DESCRIPTION: CT - Pelvis Wo Cont - 01/21/2019 1:58 pm CLINICAL HISTORY: ICD N 20.0/N 20.1 COMPARISON: January 20, 2019 cat scan TECHNIQUE: Computed axial tomography of the pelvis was obtained for radiation therapy field placemen t for prostatic carcinoma. All CT scans are performed using dose optimization technique as appropriate and may include automated exposure control or mA/KV adjustment according to patient size. FINDINGS: Calcifications within the mid and distal right ureter are not seen. A bladder calculus is not noted IMPRESSION: Right distal ureteral calculi are no longer seen and presumably have passed
[2019-01-22] MEDS: CEFAZOLIN/SWI 1gm 1 GM/10 ML SYR IV SCH (05:39)
[2019-01-22] MEDS: NA CHLORIDE 0.9% 1,000 ML IV SCH (09:44)
--- NOTE | 2019-01-22 15:37 | P.SSS ---
Patient History Date of Service: 01/22/19 Reason for admission: Obstructive uropathy/nephrolithiasis with hydronephrosis History of Present Illness: Patient is a 38-year-old female who is been in the hospital on 2 different occasions with pyelonephritis. She was diagnose with a pyelonephritis and made as well as early December. She has been treated with antibiotics. She grew out an enterococcus species as well as an E coli. Both susceptible to penicillin. Patient has been on Augmentin. She was visiting her ex- with their children when suddenly started having back pain. She came into the emergency room for further evaluation. In the ER she was found have a right-sided nephrolithiasis-most likely magnesium struvite stones-with right-sided hydronephrosis. Urology was consulted and plan to do surgery in a.m. Continue with IV antibiotics and pain control at this time. Allergies No Known Allergies Allergy (Verified 01/21/19 04:18) Home Medications: Amox/Clavulanate [Augmentin 875-125 Tab] 1 each PO BID 14 Days #28 tab 01/03/19 - Past Medical/Surgical History Has patient received pneumonia vaccine in the past: No Diabetic: No -: UTI -: Bunions -: E.coli in the urine -: Tubal ligation -: Appendectomy -: R bunion surgery - Family History Father -: Diabetes Mother -: Hypertension, Diabetes - Social History Smoking Status: Never smoker Alcohol use: Yes CD- Drugs: No Caffeine use: Yes Place of Residence: Home Review of Systems 10-point ROS is otherwise unremarkable Physical Examination - Vital Signs Temperature: 98.0 F Blood Pressure: 123/84 Pulse: 72 Respirations: 17 Pulse Ox (%): 99 - Physical Exam General: Alert, In no apparent distress HEENT: Atraumatic, PERRLA, Mucous membr. moist/pink, EOMI, Sclerae nonicteric Neck: Supple, 2+ carotid pulse no bruit, No LAD, Without JVD or thyroid abnormality Respiratory: Clear to auscultation bilaterally, Normal air movement Cardiovascular: Regular rate/rhythm, Normal S1 S2 Gastrointestinal: Normal bowel sounds, No tenderness Musculoskeletal: No tenderness Integumentary: No rashes Neurological: Normal gait, Normal speech, Normal strength at 5/5 x4 extr, Normal tone, Normal affect Lymphatics: No axilla or inguinal lymphadenopathy - Diagnosis (Problem(s)) (1) Hydronephrosis, right Status: Resolved (2) Intractable nausea and vomiting Status: Resolved (3) Nephrolithiasis Status: Acute Treatment Summary: Overall during the hospital stay patient main stable Patient was initially admitted to the hospital for nephrolithiasis and right ureter stone as well. Urology was consulted. Patient was started on IV fluids while here in the hospital. Patient was scheduled for procedure. Patient however passed 2 stones overnight and repeat CT scan was negative for any acute right ureter stone. At that time neurology recommended the patient can be discharged home under stable condition and have outpatient follow up with him regarding the nephrolithiasis. Patient demonstrate understanding and thus was discharged home under stable condition. - Disposition Disposition: ROUTINE DISCHARGE Condition: GOOD
== END 2019-01-22 13:34 | disposition home or self-care (01) ==
LOC: ER 21:33 → ERHOLD 01-21 02:39 → 2ND 01-21 03:00
PROVIDERS: ADMIT Hospitalist; ATTEND Family Medicine
DX: N13.2 Hydronephrosis with renal and ureteral calculous obstruction (principal); Z87.440 Personal history of urinary (tract) infections; Z87.442 Personal history of urinary calculi
CPT/HCPCS: 36415; 72192; 74018; 74176; 76377; 80048; 80053; 80076; 81003; 81015; 81025; 83690; 83735; 84100; 85025; 85610; 85730; 88300; 93005; 96361; 96374; 96375; 99285; J0690; J0744; J1650; J2405; J2550; J3010; J7030

== ENCOUNTER 2020-06-29 10:30 | Emergency (ER) | payer OTHER ==
--- NOTE | 2020-06-29 11:31 | RAD REPORT ---
EXAM DESCRIPTION: CT - Stone Protocol - 06/29/2020 11:17 am CLINICAL HISTORY: Flank pain. flank pain, hx of kidney stones COMPARISON: Stone Protocol dated 01/20/2019 TECHNIQUE: Axial images were obtained without oral or IV contrast. Lack of contrast limits solid org an and vascular assessment. The [id number] spans the entirety of the system partially obscuring uppermost abdomen and lung bases. Coronal reformatted images were obtained and reviewed. All CT scans are performed using dose optimization technique as appropriate and may include automated exposure control or mA/KV adjustment according to patient size. FINDINGS: The lower lung schmidt are clear. Imaged portions of the liver and spleen show no suspicious findings on non-contrast imaging. The panc reas and adrenal glands are normal. No pathologic lymphadenopathy in the abdomen or pelvis. Multiple stones are seen in the calices of both kidneys, largest in the inferior calyx left kidney me asuring 8 mm. 7 mm oblong stone is present in the proximal left ureter without hydronephrosis. No bowel obstruction, free air, free fluid or abscess. Appendectomy. No significant bony abnormality. IMPRESSION: 7 mm oblong calculus is present proximal left ureter without significant hydronephrosis. Bilateral nephrolithiasis.
[2020-06-29 11:33] LABS: Urine Blood 2+ (NEG); Urine Glucose NEGATIVE (NEG); Urine Protein 1+ (NEG); Urine Specific Gravity >1.030 (1.005-1.030); Urine pH 5.5 (5.0-7.0)
[2020-06-29 11:36] LABS: Urine Bacteria 20-50 /HPF (<20); Urine Mucus LIGHT /HPF (NONE SEEN); Urine RBC >50 /HPF (NONE SEEN)
[2020-06-29 11:39] LABS: Absolute Lymphocytes (CBC) 2.1 K/uL (0.7-4.9); Basophils % 0.8 % (0-1.3); Hematocrit 34.7 % (36.0-45.0); Lymphocytes % 21.3 % (15.3-44.8); MPV 9.2 fL (7.6-11.3); RBC Red Blood Cell Count 4.03 M/uL (3.86-4.86)
[2020-06-29] MEDS ORDERED: TAMSULOSIN 0.4 MG SR CAP ONE (11:46)
[2020-06-29] MEDS ORDERED: MORPHINE 4 MG/ML SYR ONE ×2 (11:46→13:20)
[2020-06-29] MEDS ORDERED: ONDANSETRON 4 MG/2 ML VIAL ONE (11:46)
[2020-06-29] MEDS ORDERED: KETOROLAC 30 MG/ML INJ ONE (11:47)
[2020-06-29] MEDS ORDERED: NA CHLORIDE 0.9% 1,000 ML ONE (11:47)
[2020-06-29] MEDS ORDERED: MAGNESIUM SULFATE 1 gm IVPB 1 GM/100 ML BAG IV ONE (11:47)
[2020-06-29 13:14] LABS: ALT/SGPT 14 U/L (12-78); AST/SGOT 11 U/L (15-37); Albumin 3.2 g/dL (3.4-5.0); Alkaline Phosphatase 89 U/L (45-117); BUN Blood Urea Nitrogen 10 mg/dL (7-18); Bicarbonate 27 mmol/L (21-32); Bilirubin Direct < 0.1 mg/dL (0-0.2); Bilirubin Total 0.2 mg/dL (0.2-1.0); Glucose Level 101 mg/dL (74-106); Potassium 3.8 mmol/L (3.5-5.1); Protein, Total 7.7 g/dL (6.4-8.2); Sodium Level 140 mmol/L (136-145)
--- NOTE | 2020-06-29 14:06 | ER ---
Nurse's Notes [facility] Name: Margareth Chapa Age: 40 yrs Sex: Female : 1980 Arrival Date: 06/29/2020 Time: 10:31 Bed 5 Private MD: Diagnosis: Calculus of ureter Presentation: 06/29 10:48 Chief complaint: Patient states: left flank pain, low back pain started today, took iw four advil this morning and had no relief, has hx of kidney stones and feels similar. Coronavirus screen: At this time, the client does not indicate any symptoms associated with coronavirus-19. Ebola Screen: Patient negative for fever greater than or equal to 101.5 degrees Fahrenheit, and additional compatible Ebola Virus Disease symptoms Patient denies exposure to infectious person. Patient denies travel to an Ebola-affected area in the 21 days before illness onset. No symptoms or risks identified at this time. Initial Sepsis Screen: Does the patient meet any 2 criteria? No. Patient's initial sepsis screen is negative. Does the patient have a suspected source of infection? No. Patient's initial sepsis screen is negative. Risk Assessment: Do you want to hurt yourself or someone else? Patient reports no desire to harm self or others. Onset of symptoms was June 29, 2020. 10:48 Method Of Arrival: Ambulatory iw 10:48 Acuity: AURELIO 3 iw Historical: - Allergies: 10:50 NKA; iw - Home Meds: 10:50 acutane [Active]; control [Active]; iw - PMHx: 10:50 None; iw - PSHx: 10:50 Appendectomy; Tubal ligation; iw - Immunization history:: Adult Immunizations up to date. - Social history:: Smoking status: Patient denies any tobacco usage or history of. - Family history:: not pertinent. - Hospitalizations: : No recent hospitalization is reported. Screenin:25 Abuse screen: Denies threats or abuse. Denies injuries from another. Nutritional sv screening: No deficits noted. Tuberculosis screening: No symptoms or risk factors identified. Fall Risk None identified. Assessment: 11:05 General: Appears distressed, uncomfortable. Pain: Complains of pain in L flank Pain ss currently is 8 out of 10 on a pain scale. Quality of pain is described as sharp, Is continuous. Neuro: Level of Consciousness is awake, alert, obeys commands, Oriented to person, place, time, situation, Woods Warden are equal bilaterally. Cardiovascular: Capillary refill < 3 seconds is brisk in bilateral fingers Patient's skin is warm and dry. Respiratory: Airway is patent Respiratory effort is even, unlabored, Respiratory pattern is regular, symmetrical. GI: Reports L flank pain that began today Patient currently denies diarrhea, nausea, vomiting. : No signs and/or symptoms were reported regarding the genitourinary system. Denies burning with urination, inability to void, urinary frequency. EENT: Oral mucosa is moist. Derm: Skin is intact, is healthy with good turgor, Skin is dry, Skin is pink, warm \T\ dry. normal. Musculoskeletal: Circulation, motion, and sensation intact. Range of motion: intact in all extremities, Swelling absent. 12:40 Reassessment: Patient appears in no apparent distress at this time. Patient and/or ss family updated on plan of care and expected duration. Pain level reassessed. Patient is alert, oriented x 3, equal unlabored respirations, skin warm/dry/pink. Patient states feeling better. Patient states symptoms have improved. 14:27 Reassessment: pain is 3/10. Pt reports feeling better. Is awaiting for her son to pick ss her up from ED. Vital Signs: 10:48 BP 132 / 70; Pulse 97; Resp 16; Temp 98.6; Pulse Ox 98% on R/A; Weight 79.38 kg; Height iw 5 ft. 4 in. (162.56 cm); Pain 9/10; 12:00 BP 118 / 84; Pulse 73; Resp 16; Pulse Ox 98% ; sv 13:38 BP 127 / 78; Pulse 70; Resp 16; Pulse Ox 98% ; sv 10:48 Body Mass Index 30.04 (79.38 kg, 162.56 cm) iw ED Course: 10:31 Patient arrived in ED. rg4 10:49 Triage completed. iw 10:50 Arm band placed on. iw 10:54 Jeanmarie Higgins MD is Attending Physician. rn 11:16 Tiffanie Pruett RN is Primary Nurse. ss 11:17 CT Stone Protocol In Process Unspecified. EDMS 11:22 Inserted saline lock: 20 gauge in right antecubital area, using aseptic technique. ss Blood collected. 12:00 Patient has correct armband on for positive identification. Bed in low position. Call sv light in reach. Pulse ox on. NIBP on. 14:27 No provider procedures requiring assistance completed. ss 14:39 IV discontinued, intact, bleeding controlled, No redness/swelling at site. Pressure ss dressing applied. Administered Medications: 11:22 Drug: Flomax 0.4 mg Route: PO; ss 12:00 Follow up: Response: No adverse reaction ss 11:22 Drug: Zofran (Ondansetron) 4 mg Route: IVP; Site: right antecubital; ss 12:00 Follow up: Response: No adverse reaction ss 11:22 Drug: NS 0.9% 1000 ml Route: IV; Rate: 1 bolus; Site: right antecubital; ss 12:30 Follow up: IV Status: Completed infusion; IV Intake: 1000ml ss 11:25 Drug: TORadol - Ketorolac 15 mg Route: IVP; Site: right antecubital; ss 12:00 Follow up: Response: No adverse reaction ss 11:27 Drug: morphine 4 mg Route: IVP; Site: right antecubital; ss 12:00 Follow up: Response: No adverse reaction; RASS: Alert and Calm (0) ss 11:30 Drug: Magnesium Sulfate 1 grams Route: IVPB; Infused Over: 1 hrs; Site: right ss antecubital; 12:30 Follow up: IV Status: Completed infusion ss 13:20 Drug: morphine 4 mg Route: IVP; Site: right antecubital; ss 14:10 Follow up: Response: No adverse reaction; No adverse reaction, Patient reports minimal ss relief from pain medicaiton administration 14:27 Not Given (Physician Discretion): morphine 4 mg IVP once; RASS on ADMIN: Combtv4, Very ss Agttd3, Agttd2, Rstlss1, AlertClm0, Drwsy-1, Lt Sdtn-2, Mod Sdtn-3, Dp Sdtn-4, UnArsble-5 14:27 Drug: [place] 10 mg-325 mg 1 tabs Route: PO; ss 14:41 Follow up: Response: Medication administered at discharge. ss Intake: 12:30 IV: 1000ml; Total: 1000ml. ss Outcome: 14:06 Discharge ordered by . rn 14:39 Discharged to home ambulatory, with family. ss 14:39 Condition: improved 14:39 Discharge instructions given to patient, family, Instructed on discharge instructions, follow up and referral plans. medication usage, Demonstrated understanding of instructions, follow-up care, medications, Prescriptions given X 4. 14:41 Patient left the ED. ss Signatures: Dispatcher [employer] Amber oHoks RN RN sv Williams, Irene, RN RN Jeanmarie Higgins MD MD rn Smirch, Shelby, RN RN Tia Chapa rg4 Corrections: (The following items were deleted from the chart) 10:50 10:48 Pulse 97bpm; Resp 16bpm; Pulse Ox 98% RA; Temp 98.6F; 79.38 kg; Height 5 ft. 4 iw in.; BMI: 30.0; Pain 9/10; iw 12:40 12:39 Inserted saline lock: 20 gauge in right antecubital area, using aseptic ss technique. Blood collected. ss
--- NOTE | 2020-06-29 14:06 | EDPHYS ---
Physician Documentation [facility] Name: Margareth Chapa Age: 40 yrs Sex: Female : 1980 Arrival Date: 06/29/2020 Time: 10:31 Bed 5 Private MD: ED Physician Jeanmarie Higgins HPI: 06/29 11:12 This 40 yrs old Female presents to ER via Ambulatory with complaints of flank rn pain, kidney stone. 11:12 The patient presents with pain that is acute. The symptoms are located in the left rn flank. The pain does not radiate. The problem was sustained without known cause. Onset: The symptoms/episode began/occurred this morning. Modifying factors: The patient symptoms are alleviated by nothing, the patient symptoms are aggravated by nothing. Associated signs and symptoms: Pertinent positives: nausea, Pertinent negatives: abdominal pain, constipation, fever, incontinence, numbness, urinary retention. Severity of symptoms: At their worst the symptoms were moderate, in the emergency department the symptoms are unchanged. The patient has experienced similar episodes in the past. The patient has not recently seen a physician. Historical: - Allergies: 10:50 NKA; iw - Home Meds: 10:50 acutane [Active]; control [Active]; iw - PMHx: 10:50 None; iw - PSHx: 10:50 Appendectomy; Tubal ligation; iw - Immunization history:: Adult Immunizations up to date. - Social history:: Smoking status: Patient denies any tobacco usage or history of. - Family history:: not pertinent. - Hospitalizations: : No recent hospitalization is reported. ROS: 11:12 Constitutional: Negative for fever, chills, and weight loss, Eyes: Negative for injury, rn pain, redness, and discharge, Neck: Negative for injury, pain, and swelling, Cardiovascular: Negative for chest pain, palpitations, and edema, Respiratory: Negative for shortness of breath, cough, wheezing, and pleuritic chest pain, Abdomen/GI: Negative for abdominal pain, nausea, vomiting, diarrhea, and constipation, Back: + left flank pain : Negative for injury, discharge, and swelling, MS/Extremity: Negative for injury and deformity, Skin: Negative for injury, rash, and discoloration, Neuro: Negative for headache, weakness, numbness, tingling, and seizure. Exam: 11:12 Constitutional: This is a well developed, well nourished patient who is awake, alert, learning program manager to room, appears slightly uncomfortable Head/Face: Normocephalic, atraumatic. Cardiovascular: Regular rate and rhythm. No pulse deficits. Respiratory: No increased work of breathing, no retractions or nasal flaring. Abdomen/GI: soft, non-tender Back: No spinal tenderness. No costovertebral tenderness. Full range of motion. Skin: Warm, dry MS/ Extremity: Pulses equal, no cyanosis. Neuro: Awake and alert, GCS 15 Vital Signs: 10:48 BP 132 / 70; Pulse 97; Resp 16; Temp 98.6; Pulse Ox 98% on R/A; Weight 79.38 kg; Height iw 5 ft. 4 in. (162.56 cm); Pain 9/10; 12:00 BP 118 / 84; Pulse 73; Resp 16; Pulse Ox 98% ; sv 13:38 BP 127 / 78; Pulse 70; Resp 16; Pulse Ox 98% ; sv 10:48 Body Mass Index 30.04 (79.38 kg, 162.56 cm) iw MDM: 10:54 Patient medically screened. rn 13:10 Response to treatment: the patient's symptoms have mildly improved after treatment, and rn as a result, I will continue to observe the patient. 14:03 Differential diagnosis: UTI, ureterolithiasis. Data reviewed: vital signs, nurses rn notes, lab test result(s), radiologic studies, CT scan, and as a result, I will discharge patient. Counseling: I had a detailed discussion with the patient and/or guardian regarding: the historical points, exam findings, and any diagnostic results supporting the discharge/admit diagnosis, lab results, radiology results, the need for outpatient follow up, to return to the emergency department if symptoms worsen or persist or if there are any questions or concerns that arise at home. Special discussion: I discussed with the patient/guardian in detail that at this point there is no indication for admission to the hospital. It is understood, however, that if the symptoms persist or worsen the patient needs to return immediately for re-evaluation. ED course: Pt improved, 7mm stone, last passed with 9 mm stones, will dc home with pain meds and abx. . 06/29 10:58 Order name: Urine Microscopic Only; Complete Time: 11:40 rn 06/29 10:58 Order name: CBC with Diff; Complete Time: 13:16 rn 06/29 10:58 Order name: Basic Metabolic Panel; Complete Time: 13:16 rn 06/29 10:58 Order name: LFT's; Complete Time: 13:16 rn 06/29 11:32 Order name: Urine Dipstick--Ancillary (enter results); Complete Time: 11:40 dh3 06/29 11:32 Order name: Urine --Ancillary (enter results); Complete Time: 11:40 3 06/29 10:58 Order name: CT Stone Protocol; Complete Time: 11:40 rn 06/29 11:37 Order name: Urine Culture EDMS 06/29 10:58 Order name: IV Start; Complete Time: 12:38 rn 06/29 10:58 Order name: Urine Test (obtain specimen); Complete Time: 12:37 rn 06/29 10:58 Order name: Urine Dipstick-Ancillary (obtain specimen); Complete Time: 12:38 rn 06/29 11:50 Order name: Labs - recollect needed: Chemistry tests are hemolyzed; Complete Time: 12:07dh3 06/29 12:17 Order name: Labs - recollect needed: recollect green top; Complete Time: 12:37 eb Administered Medications: 11:22 Drug: Flomax 0.4 mg Route: PO; ss 12:00 Follow up: Response: No adverse reaction ss 11:22 Drug: Zofran (Ondansetron) 4 mg Route: IVP; Site: right antecubital; ss 12:00 Follow up: Response: No adverse reaction ss 11:22 Drug: NS 0.9% 1000 ml Route: IV; Rate: 1 bolus; Site: right antecubital; ss 12:30 Follow up: IV Status: Completed infusion; IV Intake: 1000ml ss 11:25 Drug: TORadol - Ketorolac 15 mg Route: IVP; Site: right antecubital; ss 12:00 Follow up: Response: No adverse reaction ss 11:27 Drug: morphine 4 mg Route: IVP; Site: right antecubital; ss 12:00 Follow up: Response: No adverse reaction; RASS: Alert and Calm (0) ss 11:30 Drug: Magnesium Sulfate 1 grams Route: IVPB; Infused Over: 1 hrs; Site: right ss antecubital; 12:30 Follow up: IV Status: Completed infusion ss 13:20 Drug: morphine 4 mg Route: IVP; Site: right antecubital; ss 14:10 Follow up: Response: No adverse reaction; No adverse reaction, Patient reports minimal ss relief from pain medicaiton administration 14:27 Not Given (Physician Discretion): morphine 4 mg IVP once; RASS on ADMIN: Combtv4, Very ss Agttd3, Agttd2, Rstlss1, AlertClm0, Drwsy-1, Lt Sdtn-2, Mod Sdtn-3, Dp Sdtn-4, UnArsble-5 14:27 Drug: [place] 10 mg-325 mg 1 tabs Route: PO; ss 14:41 Follow up: Response: Medication administered at discharge. ss Disposition: 06/29/20 14:06 Discharged to Home. Impression: Calculus of ureter. - Condition is Stable. - Discharge Instructions: Kidney Stones, Dietary Guidelines to Help Prevent Kidney Stones. - Prescriptions for Zofran ODT 4 mg Oral tablet,disintegrating - place 1 tablet by TRANSLINGUAL route every 8 hours As needed; 15 tablet. Tylenol- Codeine #3 300-30 mg Oral Tablet - take 1 tablet by ORAL route every 6 hours As needed; 15 tablet. Flomax 0.4 mg Oral Capsule, Sust. Release 24 hr - take 1 capsule by ORAL route once daily 1/2 hour following the same meal each day. Stop taking when you feel you passed the stone.; 5 capsule. Cipro 500 mg Oral Tablet - take 1 tablet by ORAL route every 12 hours for 7 days; 14 tablet. - Medication Reconciliation Form, Thank You Letter, Antibiotic Education, Prescription Opioid Use, Work release form form. - Follow up: Private Physician; When: As needed; Reason: Recheck today's complaints, Re-evaluation by your physician. - Problem is new. - Symptoms have improved. Signatures: Dispatcher [employer] EDNettie Chacon RN RN iw Nieto, Roman, MD MD rn Smirch, Shelby, RN RN Laurence Villarreal [facility] Odalis Delvalle Corrections: (The following items were deleted from the chart) 14:41 14:06 06/29/2020 14:06 Discharged to Home. Impression: Calculus of ureter. Condition is ss Stable. Forms are Medication Reconciliation Form, Thank You Letter, Antibiotic Education, Prescription Opioid Use. Follow up: Private Physician; When: As needed; Reason: Recheck today's complaints, Re-evaluation by your physician. Problem is new. Symptoms have improved. rn
[2020-06-29] MEDS ORDERED: HYDROCODONE/APAP 10/325 TAB ONE (14:35)
[2020-06-29 14:46] VITALS: TEMP 98.6; O2SAT 98
[2020-06-29 14:49] VITALS: BP 127/78
== END 2020-06-29 14:41 | disposition home or self-care (01) ==
LOC: ER 10:30
DX: N20.1 Calculus of ureter (principal)
CPT/HCPCS: 96365; 87088; 85025; 87086; 80048; 36415; 81025; 80076; 76377; 74176; 96375; 99284; J3475; J7030; J2405; 81003; 81015

== ENCOUNTER 2020-07-10 06:48 | Emergency (ER) | payer OTHER ==
--- NOTE | 2020-07-10 08:24 | RAD REPORT ---
EXAM DESCRIPTION: CT - Stone Protocol - 07/10/2020 7:55 am CLINICAL HISTORY: Flank pain. left flank pain COMPARISON: Stone Protocol dated 06/29/2020 TECHNIQUE: Axial images were obtained without oral or IV contrast. Lack of contrast limits solid org an and vascular assessment. The [id number] spans the entirety of the system partially obscuring uppermost abdomen and lung bases. Coronal reformatted images were obtained and reviewed. All CT scans are performed using dose optimization technique as appropriate and may include automated exposure control or mA/KV adjustment according to patient size. FINDINGS: The lower lung schmidt are clear. Imaged portions of the liver and spleen show no suspicious findings on non-contrast imaging. The panc reas and adrenal glands are normal. No pathologic lymphadenopathy in the abdomen or pelvis. Small calculi are present in the calices of both kidneys, largest in the inferior calyx of the left k idney measuring 7 mm. The patient's previously noted oblong 7 mm calculus seen in the proximal left u reter has traveled inferiorly is now at the level of the pelvic inlet. Mild left hydronephrosis is pr esent. No right-sided hydronephrosis. No bowel obstruction, free air, free fluid or abscess. Appendectomy.5 cm left ovarian cyst noted. No significant bony abnormality. IMPRESSION: Inferior migration of the previously noted 7 mm ureter calculus on the left is seen sinc e comparative study. The stone is now at the level of the left pelvic inlet. Mild left hydronephrosis . Additional bilateral caliceal nephrolithiasis is present. 5 cm left ovarian cyst.
[2020-07-10 08:34] LABS: Absolute Lymphocytes (CBC) 1.6 K/uL (0.7-4.9); Basophils % 0.8 % (0-1.3); Hematocrit 34.4 % (36.0-45.0); Lymphocytes % 17.9 % (15.3-44.8); RBC Red Blood Cell Count 4.01 M/uL (3.86-4.86)
[2020-07-10 08:45] LABS: BUN Blood Urea Nitrogen 10 mg/dL (7-18); Bicarbonate 27 mmol/L (21-32); Glucose Level 110 mg/dL (74-106); Potassium 3.8 mmol/L (3.5-5.1); Sodium Level 138 mmol/L (136-145)
[2020-07-10] MEDS ORDERED: MORPHINE 4 MG/ML SYR ONE ×2 (08:56→10:55)
[2020-07-10] MEDS ORDERED: ONDANSETRON 4 MG/2 ML VIAL ONE ×2 (08:56→10:28)
[2020-07-10] MEDS ORDERED: Magnesium Sulfate 2gm IVPB 2 G/50 ML BAG IV ONE (08:57)
[2020-07-10] MEDS ORDERED: TAMSULOSIN 0.4 MG SR CAP ONE (08:57)
[2020-07-10] MEDS ORDERED: KETOROLAC 30 MG/ML INJ ONE (08:57)
[2020-07-10 09:13] LABS: Urine Blood 2+ (NEG); Urine Glucose NEGATIVE (NEG); Urine Protein NEGATIVE (NEG)
[2020-07-10 09:31] LABS: Urine Bacteria <20 /HPF (<20); Urine Urothelial Cells <5 /HPF (NONE SEEN)
[2020-07-10] MEDS ORDERED: MEPERIDINE HCL 50 MG/ML ONE (10:15)
--- NOTE | 2020-07-10 11:13 | EDPHYS ---
Physician Documentation [facility] Name: Margareth Chapa Age: 40 yrs Sex: Female : 1980 Arrival Date: 07/10/2020 Time: 06:49 Bed 16 Private MD: ED Physician Jeanmarie Higgins HPI: 07/10 08:20 This 40 yrs old Female presents to ER via Ambulatory with complaints of rn Possible Kidney Stone. 08:20 The patient complains of pain in the left mid back. The pain radiates to the abdomen. rn Onset: The symptoms/episode began/occurred this morning. Modifying factors: The symptoms are alleviated by nothing. the symptoms are aggravated by nothing. Associated signs and symptoms: Pertinent positives: nausea, Pertinent negatives: diarrhea, fever, hematuria. Severity of pain: At its worst the pain was moderate in the emergency department the pain is unchanged. The patient has experienced similar episodes in the past. The patient has been recently seen at the [facility] Emergency Department. Reports left flank pain, began this AM, similar episodes in past, has hx of kidney stones, passed one 1-2 weeks ago, pain went away. No fever. No trauma. . 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 - Social history:: Smoking status: Patient denies any tobacco usage or history of. - Family history:: not pertinent. - Hospitalizations: : No recent hospitalization is reported. ROS: 08:20 Constitutional: Negative for fever, chills, and weight loss, Eyes: Negative for injury, rn pain, redness, and discharge, Cardiovascular: Negative for chest pain, palpitations, and edema, Respiratory: Negative for shortness of breath, cough, wheezing, and pleuritic chest pain, Abdomen/GI: Negative for abdominal pain, vomiting, diarrhea, and constipation, Back: + left flank pain : Negative for injury, bleeding, discharge, and swelling, MS/Extremity: Negative for injury and deformity, Skin: Negative for injury, rash, and discoloration, Neuro: Negative for headache, weakness, numbness, tingling, and seizure. Exam: 08:20 Constitutional: This is a well developed, well nourished patient who is awake, alert, rn appears uncomfortable Head/Face: Normocephalic, atraumatic. Cardiovascular: Regular rate and rhythm. No pulse deficits. Respiratory: No increased work of breathing, no retractions or nasal flaring. Abdomen/GI: soft, non-tender Back: No spinal tenderness. No costovertebral tenderness. Full range of motion. Skin: Warm, dry MS/ Extremity: Pulses equal, no cyanosis. Neuro: Awake and alert, GCS 15 Vital Signs: 07:33 BP 132 / 96; Pulse 99; Resp 17; Temp 98.4(TE); Pulse Ox 100% on R/A; Weight 74.84 kg; ss Height 5 ft. 4 in. (162.56 cm); Pain 10/10; 08:35 BP 125 / 83; Pulse 91; Resp 16 S; Pulse Ox 100% on R/A; ec1 10:00 BP 125 / 78; Pulse 80; Resp 16 S; Pulse Ox 100% on R/A; Pain 5/10; ec1 11:00 BP 127 / 84; Pulse 92; Resp 16 S; Pulse Ox 94% on R/A; Pain 5/10; ec1 07:33 Body Mass Index 28.32 (74.84 kg, 162.56 cm) ss MDM: 08:12 Patient medically screened. rn 09:39 ED course: Pt improved, now distal left ureteral stone, clean urine, will medicate to rn help pass. Pt agrees with plan, states does not want surgery and would like to see if she can pass it. . 10:41 ED course: Pt states pain returning, re-medicated. . rn 11:11 Differential diagnosis: nephrolithiasis, UTI. Data reviewed: vital signs, nurses notes, harness tier test result(s), radiologic studies, CT scan, and as a result, I will discharge patient. Counseling: I had a detailed discussion with the patient and/or guardian regarding: the historical points, exam findings, and any diagnostic results supporting the discharge/admit diagnosis, lab results, radiology results, the need for outpatient follow up, to return to the emergency department if symptoms worsen or persist or if there are any questions or concerns that arise at home. Response to treatment: the patient's symptoms have markedly improved after treatment, and as a result, I will discharge patient. Special discussion: I discussed with the patient/guardian in detail that at this point there is no indication for admission to the hospital. It is understood, however, that if the symptoms persist or worsen the patient needs to return immediately for re-evaluation. Based on the history and exam findings, there is no indication for further emergent testing or inpatient evaluation. I discussed with the patient/guardian the need to see the urologist for further evaluation of the symptoms. ED course: Pt with migration of kidney stone, now almost passed, mild hydro, no kidney dysfunction, normal vitals, pain improved, no indication for emergent intervention, will dc home with return precautions. . 07/10 08:19 Order name: CBC with Diff; Complete Time: 09:12 rn 07/10 08:19 Order name: Basic Metabolic Panel; Complete Time: 09:12 rn 07/10 08:19 Order name: Urine Microscopic Only; Complete Time: 09:32 rn 07/10 09:01 Order name: Urine Dipstick--Ancillary (enter results); Complete Time: 09:32 eb 07/10 09:01 Order name: Urine --Ancillary (enter results); Complete Time: 09:32 eb 07/10 09:33 Order name: Urine Culture EDWI 07/10 07:43 Order name: CT Stone Protocol; Complete Time: 08:27 rn 07/10 08:19 Order name: IV Start; Complete Time: 08:21 rn 07/10 08:19 Order name: Urine Test (obtain specimen); Complete Time: 08:54 rn 07/10 08:19 Order name: Urine Dipstick-Ancillary (obtain specimen); Complete Time: 10:08 rn Administered Medications: 08:53 Drug: TORadol - Ketorolac 15 mg Route: IVP; Site: left antecubital; ec1 10:07 Follow up: Response: Pain is decreased ec1 08:53 Drug: Flomax 0.4 mg Route: PO; ec1 10:07 Follow up: Response: No adverse reaction ec1 08:53 Drug: Zofran (Ondansetron) 4 mg Route: IVP; Site: left antecubital; ec1 10:07 Follow up: Response: No adverse reaction ec1 08:53 Drug: Magnesium Sulfate 1 grams Route: IVPB; Infused Over: 1 hrs; Site: left ec1 antecubital; 09:53 Follow up: IV Status: Completed infusion ec1 10:07 Follow up: Response: No adverse reaction ec1 08:54 Drug: morphine 4 mg Route: IVP; Site: left antecubital; ec1 10:07 Follow up: Response: Pain is decreased ec1 10:06 Drug: Demerol 50 mg Route: IVP; Site: left antecubital; ec1 10:17 Follow up: Response: Nausea is increased ec1 10:16 Drug: Zofran (Ondansetron) 4 mg Route: IVP; Site: left antecubital; ec1 11:32 Follow up: Response: No adverse reaction ec1 10:46 Drug: morphine 4 mg {Note: RASS 0.} Route: IVP; Site: left antecubital; tw2 11:32 Follow up: Response: Pain is decreased ec1 11:32 Drug: [place] 10 mg-325 mg 1 tabs Route: PO; ec1 11:35 Follow up: Response: No adverse reaction ec1 Disposition: 07/10/20 11:12 Discharged to Home. Impression: Calculus of kidney with calculus of ureter. - Condition is Stable. - Discharge Instructions: Kidney Stones, Renal Colic, Dietary Guidelines to Help Prevent Kidney Stones. - Medication Reconciliation Form, Thank You Letter, Antibiotic Education, Prescription Opioid Use, Work release form form. - Follow up: Private Physician; When: As needed; Reason: Recheck today's complaints, Re-evaluation by your physician. - Problem is an ongoing problem. - Symptoms have improved. Signatures: Dispatcher [employer] EDWI Jeanmarie Higgins MD MD rn Smirch, Shelby, RN RN Whitney Rg RN RN tw2 Bea Monteiro RN RN ec1 Corrections: (The following items were deleted from the chart) 11:35 11:12 07/10/2020 11:12 Discharged to Home. Impression: Calculus of kidney with calculus ec1 of ureter. Condition is Stable. Forms are Medication Reconciliation Form, Thank You Letter, Antibiotic Education, Prescription Opioid Use. Follow up: Private Physician; When: As needed; Reason: Recheck today's complaints, Re-evaluation by your physician. Problem is an ongoing problem. Symptoms have improved. rn
--- NOTE | 2020-07-10 11:13 | ER ---
Nurse's Notes [facility] Name: Margareth Chapa Age: 40 yrs Sex: Female : 1980 Arrival Date: 07/10/2020 Time: 06:49 Bed 16 Private MD: Diagnosis: Calculus of kidney with calculus of ureter Presentation: 07/10 07:32 Chief complaint: Patient states: L flank pain that began today. Pt was seen last Monday ss in ED and diagnosed with a kidney stone, and thought she had passed it until the pain started up again. Coronavirus screen: Client denies travel out of the [place] in the last 14 days. Ebola Screen: Patient denies exposure to infectious person. Patient denies travel to an Ebola-affected area in the 21 days before illness onset. Initial Sepsis Screen: Does the patient meet any 2 criteria? No. Patient's initial sepsis screen is negative. Does the patient have a suspected source of infection? No. Patient's initial sepsis screen is negative. Risk Assessment: Do you want to hurt yourself or someone else? Patient reports no desire to harm self or others. Onset of symptoms was July 10, 2020. 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 - Social history:: Smoking status: Patient denies any tobacco usage or history of. - Family history:: not pertinent. - Hospitalizations: : No recent hospitalization is reported. Screenin:57 Abuse screen: Denies threats or abuse. Denies injuries from another. Nutritional ec1 screening: No deficits noted. Tuberculosis screening: No symptoms or risk factors identified. Fall Risk No fall in past 12 months (0 pts). Secondary diagnosis (15 points) IV access (20 points). Ambulatory Aid- None/Bed Rest/Nurse Assist (0 pts). Gait- Normal/Bed Rest/Wheelchair (0 pts) Mental Status- Oriented to own ability (0 pts). Assessment: 08:57 General: Appears uncomfortable, Behavior is cooperative. Pain: Complains of pain in ec1 left mid back. Neuro: Level of Consciousness is awake, alert, obeys commands. Cardiovascular: Patient's skin is warm and dry. Respiratory: Airway is patent Respiratory effort is even, unlabored. GI: Abdomen is flat, Reports nausea, Patient currently denies diarrhea, vomiting. : No signs and/or symptoms were reported regarding the genitourinary system. EENT: No signs and/or symptoms were reported regarding the EENT system. Derm: No signs and/or symptoms reported regarding the dermatologic system. Musculoskeletal: No signs and/or symptoms reported regarding the musculoskeletal system. 08:57 GI: Bowel sounds present X 4 quads. Abd is soft and non tender X 4 quads. ec1 10:00 Reassessment: Patient and/or family updated on plan of care and expected duration. Pain ec1 level reassessed. Pt reports pain in left back/ flank at 5/10. No signs of distress. Vital Signs: 07:33 BP 132 / 96; Pulse 99; Resp 17; Temp 98.4(TE); Pulse Ox 100% on R/A; Weight 74.84 kg; ss Height 5 ft. 4 in. (162.56 cm); Pain 10/10; 08:35 BP 125 / 83; Pulse 91; Resp 16 S; Pulse Ox 100% on R/A; ec1 10:00 BP 125 / 78; Pulse 80; Resp 16 S; Pulse Ox 100% on R/A; Pain 5/10; ec1 11:00 BP 127 / 84; Pulse 92; Resp 16 S; Pulse Ox 94% on R/A; Pain 5/10; ec1 07:33 Body Mass Index 28.32 (74.84 kg, 162.56 cm) ED Course: 06:49 Patient arrived in ED. cl3 07:33 Triage completed. ss 07:33 Arm band placed on right wrist. ss 07:56 CT Stone Protocol In Process Unspecified. EDMS 08:12 Jeanmarie Higgins MD is Attending Physician. rn 08:22 Initial lab(s) drawn, by or, sent to lab. Inserted saline lock: 20 gauge in left em1 antecubital area, using aseptic technique. Blood collected. 08:34 Bea Monteiro, RN is Primary Nurse. ec1 08:57 Patient has correct armband on for positive identification. Bed in low position. ec1 11:33 No provider procedures requiring assistance completed. IV discontinued, intact, ec1 bleeding controlled, Pressure dressing applied. Administered Medications: 08:53 Drug: TORadol - Ketorolac 15 mg Route: IVP; Site: left antecubital; ec1 10:07 Follow up: Response: Pain is decreased ec1 08:53 Drug: Flomax 0.4 mg Route: PO; ec1 10:07 Follow up: Response: No adverse reaction ec1 08:53 Drug: Zofran (Ondansetron) 4 mg Route: IVP; Site: left antecubital; ec1 10:07 Follow up: Response: No adverse reaction ec1 08:53 Drug: Magnesium Sulfate 1 grams Route: IVPB; Infused Over: 1 hrs; Site: left ec1 antecubital; 09:53 Follow up: IV Status: Completed infusion ec1 10:07 Follow up: Response: No adverse reaction ec1 08:54 Drug: morphine 4 mg Route: IVP; Site: left antecubital; ec1 10:07 Follow up: Response: Pain is decreased ec1 10:06 Drug: Demerol 50 mg Route: IVP; Site: left antecubital; ec1 10:17 Follow up: Response: Nausea is increased ec1 10:16 Drug: Zofran (Ondansetron) 4 mg Route: IVP; Site: left antecubital; ec1 11:32 Follow up: Response: No adverse reaction ec1 10:46 Drug: morphine 4 mg {Note: RASS 0.} Route: IVP; Site: left antecubital; tw2 11:32 Follow up: Response: Pain is decreased ec1 11:32 Drug: [place] 10 mg-325 mg 1 tabs Route: PO; ec1 11:35 Follow up: Response: No adverse reaction ec1 Outcome: 11:12 Discharge ordered by . rn 11:33 Discharged to home ambulatory. ec1 11:33 Condition: good 11:33 Discharge instructions given to patient, Instructed on discharge instructions, follow up and referral plans. Demonstrated understanding of instructions, follow-up care. 11:35 Patient left the ED. ec1 Signatures: Dispatcher [employer] EDMS Jeanmarie Higgins MD MD rn Martinez, Eric em1 Tiffanie Pruett RN RN Whitney Rg RN RN tw2 Sofy Huber cl3 Bea Monteiro, RN RN ec1
[2020-07-10] MEDS ORDERED: HYDROCODONE/APAP 10/325 TAB ONE (11:43)
[2020-07-10 11:46] VITALS: TEMP 98.4
[2020-07-10 11:50] VITALS: BP 127/84; O2SAT 94
== END 2020-07-10 11:35 | disposition home or self-care (01) ==
LOC: ER 06:48
DX: N20.2 Calculus of kidney with calculus of ureter (principal)
CPT/HCPCS: 96365; 85025; 87086; 80048; 36415; 81025; 76377; 74176; 96375; 99284; J2175; J3475; J2405 ×2; 81003; 81015; 87088

== ENCOUNTER 2020-07-17 10:01 | Emergency (ER) | payer OTHER ==
--- OUTSIDE RECORDS SUMMARY | 2020-07-17 10:13 | XMS REPORT ---
:1980 Author Organization [facility] Address [address], [place] [place] [address] Care Team Providers Name Role Phone Fredy Taylor [phone] PROBLEMS Type Condition ICD9-CM [id number] Onset Condition SNOMED Code Notes Code Code Dates Status Problem Bilateral kidney N20.0 Active 09211267 stones Problem Ureterolithiasis N20.1 Active 25741923 ALLERGIES No Known Allergies ENCOUNTERS from 1980 to 2020-07-16 Encounter Location Date Provider Diagnosis [facility] [address] [facility] Jul, Fredy Taylor Bilateral ki dney stones Specialty/Urology [address]20[address] and [place], [place] Ureterolithiasi s N20.1 [id number] IMMUNIZATIONS No Information SOCIAL HISTORY Tobacco Use: Social History Observation Description Date Details (start date - stop date) Never Smoker Sex Assigned At : Social History Observation Description Sex Assigned At Unknown Alcohol Screen Question Answer Notes Did you have a drink containing alcohol in Yes the past year? Points 2 Interpretation Negative How often did you have a drink containing Two to four times a month (2 points) alcohol in the past year? Tobacco Use/Smoking Question Answer Notes Are you a never smoker REASON FOR REFERRAL No Information VITAL SIGNS Height 64 in Jul, Weight 166.8 lbs Jul, Temperature 97.9 degrees Fahrenheit Jul, BMI 28.63 kg/m2 Jul, Oximetry 100 % Jul, Blood pressure systolic 142 mm Hg Jul, Blood pressure diastolic 81 mm Hg Jul, MEDICATIONS Medication SIG (Take, Route, Frequency, Notes Start Date End Cesar e Status Duration) Vitamin E 600 UNIT 1 capsule Orally Once a day Active Vitamin C 500 MG as directed Orally Active Probiotic - as directed Orally Activ e PROCEDURES No Information RESULTS No Results REASON FOR VISIT Est Care, KIDNEY STONES MEDICAL (GENERAL) HISTORY Type Description Date Medical History KIDNEY STONES Surgical History TUBAL LIGATION Surgical History APPENDIX REMOVED Surgical History BUNIONECTOMY RIGHT Goals Section No Information Health Concerns No Information MEDICAL EQUIPMENT No Information MENTAL STATUS No Information FUNCTIONAL STATUS No Information ASSESSMENTS Encounter Date Diagnosis Assessment Notes Treatment Notes Treatm ent Clinical Notes Jul, Bilateral kidney stones (ICD-10 - N20.0) Jul, Ureterolithiasis (ICD-10 - N20.1) PLAN OF TREATMENT No Information Insurance Providers Payer Name Payer Payer Insured Name Patient Coverage Covera End Address Phone Relationship to Start Date Cesar e Insured [employer] [phone] DO JACQUES self [id number] [facility] [id number]
--- OUTSIDE RECORDS SUMMARY | 2020-07-17 10:13 | XMS REPORT | Continuity of Care Document ---
:1980 Author Organization [facility] t Address [address] [place] [id number] Care Team Providers Name Role Phone Unavailable Unavailable Unavailable Problems This patient has no known problems. Allergies, Adverse Reactions, Alerts This patient has no known allergies or adverse reactions. Medications This patient has no known medications. Procedures This patient has no known procedures. Encounters Start End Encounter Admission Attending Care Care Encounter Source Date/Time Date/Time Type Type Clinicians Facility Department ID 2020-07-16 2020-07-16 Outpatient [facility] [id number] [facility] 00:00:00 00:00:00 Mariela [facility] Clinics Results This patient has no known results.
[2020-07-17] MEDS ORDERED: MORPHINE 4 MG/ML SYR ONE ×2 (10:50→12:42)
[2020-07-17] MEDS ORDERED: KETOROLAC 30 MG/ML INJ ONE (10:50)
[2020-07-17] MEDS ORDERED: ONDANSETRON 4 MG/2 ML VIAL ONE ×2 (10:50→14:07)
[2020-07-17] MEDS ORDERED: NA CHLORIDE 0.9% 1,000 ML ONE (10:50)
[2020-07-17 10:55] LABS: Absolute Lymphocytes (CBC) 1.8 K/uL (0.7-4.9); Basophils % 0.6 % (0-1.3); Lymphocytes % 26.1 % (15.3-44.8); MPV 9.1 fL (7.6-11.3); RBC Red Blood Cell Count 4.32 M/uL (3.86-4.86)
[2020-07-17] MEDS ORDERED: MAGNESIUM SULFATE 1 gm IVPB 1 GM/100 ML BAG IV ONE (11:05)
[2020-07-17 11:10] LABS: ALT/SGPT 23 U/L (12-78); AST/SGOT 14 U/L (15-37); Albumin 3.8 g/dL (3.4-5.0); Alkaline Phosphatase 63 U/L (45-117); BUN Blood Urea Nitrogen 12 mg/dL (7-18); Bicarbonate 30 mmol/L (21-32); Bilirubin Direct < 0.1 mg/dL (0-0.2); Bilirubin Total 0.3 mg/dL (0.2-1.0); Glucose Level 103 mg/dL (74-106); Lipase 84 U/L (73-393); Potassium 3.9 mmol/L (3.5-5.1); Protein, Total 8.9 g/dL (6.4-8.2); Sodium Level 140 mmol/L (136-145)
--- NOTE | 2020-07-17 12:21 | RAD REPORT ---
EXAM DESCRIPTION: RAD - Abdomen 1 View (KUB) - 07/17/2020 11:23 am CLINICAL HISTORY: Abdomen pain. FINDINGS: The bowel gas pattern is unremarkable. Multiple left renal calculi. [place] calcification within the medial pelvis may represent a distal
[2020-07-17 12:47] LABS: Urine Blood 2+ (NEG); Urine Glucose NEGATIVE (NEG); Urine Protein NEGATIVE (NEG); Urine Specific Gravity 1.015 (1.005-1.030)
--- NOTE | 2020-07-17 13:18 | RAD REPORT ---
EXAM DESCRIPTION: CT - Stone Protocol - 07/17/2020 1:00 pm CLINICAL HISTORY: Flank pain. FLANK PAIN COMPARISON: Stone Protocol dated 07/10/2020; Abdomen 1 View (KUB) dated 07/17/2020 TECHNIQUE: Axial images were obtained without oral or IV contrast. Lack of contrast limits solid org an and vascular assessment. The [id number] spans the entirety of the system partially obscuring uppermost abdomen and lung bases. Coronal reformatted images were obtained and reviewed. All CT scans are performed using dose optimization technique as appropriate and may include automated exposure control or mA/KV adjustment according to patient size. FINDINGS: The lower lung schmidt are clear. Imaged portions of the liver and spleen show no suspicious findings on non-contrast imaging. The panc reas and adrenal glands are normal. No pathologic lymphadenopathy in the abdomen or pelvis. Previously noted left ureter stone measuring 7 mm discontinued its inferior migration and is now at t he left UVJ. Hydronephrosis is mild and has improved mildly since the prior CT. Additional are bilateral caliceal stones are present, unchanged. No bowel obstruction, free air, free fluid or abscess. Appendectomy.Sigmoid diverticulosis without di verticulitis. No significant bony abnormality. 5 cm left ovarian cyst. IMPRESSION: Continued inferior migration of the patient's known left ureter stone. The stone now lie s at the left UVJ results in mild left hydronephrosis. Additional bilateral nephrolithiasis.
[2020-07-17] MEDS ORDERED: HYDROMORPHONE HCL 1 MG/ML INJ ONE (14:03)
--- NOTE | 2020-07-17 14:28 | EDPHYS ---
Physician Documentation [facility] Name: Margareth Chapa Age: 40 yrs Sex: Female : 1980 Arrival Date: 07/17/2020 Time: 10:04 Bed 26 Private MD: ED Physician Carmelo Grimes HPI: 07/17 10:35 This 40 yrs old Female presents to ER via Wheelchair with complaints of Low jmm Back Pain. 10:35 The patient presents with pain that is acute. The pain does not radiate. Onset: The jmm symptoms/episode began/occurred gradually, 2 week(s) ago. Modifying factors: The patient symptoms are alleviated by nothing, the patient symptoms are aggravated by any movement. Associated signs and symptoms: Pertinent negatives: fever. The patient has experienced similar episodes in the past. Patient visited with Dr. Taylor yesterday. Procedure scheduled in 2 weeks. Pain worsened this morning. Historical: - Allergies: 10:20 NKA; ll1 - PMHx: 10:20 Kidney stones; High Cholesterol; ll1 - PSHx: 10:20 Appendectomy; Tubal ligation; bunion sx; ll1 - Immunization history:: Flu vaccine is up to date. - Social history:: Smoking status: Patient denies any tobacco usage or history of. ROS: 10:35 Constitutional: Negative for fever, chills, and weight loss, Cardiovascular: Negative jmm for chest pain, palpitations, and edema, Respiratory: Negative for shortness of breath, cough, wheezing, and pleuritic chest pain. 10:35 Abdomen/GI: Positive for abdominal pain. 10:35 Back: Positive for pain with movement. 10:35 All other systems are negative. Exam: 10:35 Head/Face: atraumatic. Eyes: EOMI, no conjunctival erythema appreciated ENT: Moist jmm Mucus Membranes Neck: Trachea midline, Supple Chest/axilla: Normal chest wall appearance and motion. Cardiovascular: Regular rate and rhythm. No edema appreciated Respiratory: Normal respirations, no respiratory distress appreciated Abdomen/GI: Non distended, soft 10:35 Skin: General appearance color normal MS/ Extremity: Moves all extremities, no obvious deformities appreciated, no edema noted to the lower extremities Neuro: Awake and alert, normal gait Psych: Behavior is normal, Mood is normal, Patient is cooperative and pleasant 10:35 Constitutional: The patient appears alert, awake, anxious, uncomfortable. 10:35 Back: CVA tenderness, that is moderate, is noted on the left. Vital Signs: 10:20 BP 119 / 82; Pulse 103; Resp 18; Temp 98.6; Pulse Ox 100% ; Weight 75.3 kg; Height 5 ll1 ft. 4 in. (162.56 cm); Pain 10/10; 11:00 BP 125 / 83; Pulse 92; Resp 18; Pulse Ox 100% on R/A; Pain 2/10; em 12:30 BP 122 / 71; Pulse 92; Resp 18; Pulse Ox 100% on R/A; Pain 4/10; em 13:30 BP 126 / 76; Pulse 87; Resp 18; Pulse Ox 100% on R/A; em 14:25 BP 114 / 66; Pulse 94; Resp 18; Pulse Ox 99% on R/A; em 16:30 BP 130 / 73; Pulse 87; Resp 18; Pulse Ox 99% on R/A; Pain 5/10; em 17:50 BP 127 / 85; Pulse 75; Resp 18; Pulse Ox 99% on R/A; Pain 4/10; em 10:20 Body Mass Index 28.49 (75.30 kg, 162.56 cm) ll1 MDM: 10:25 Patient medically screened. [facility] 14:24 Data reviewed: vital signs, nurses notes. ED course: I discussed the patient with Dr. chloe Taylor whom stated he was out of town, advised to give dilaudid for pain. Patient remains in pain. Will transfer due to intractable pain. Patient transferred to [facility], accepted by Dr. Rod. . 07/17 10:26 Order name: Basic Metabolic Panel; Complete Time: 11: [facility] 07/17 10:26 Order name: CBC with Diff; Complete Time: 11:14 [facility] 07/17 10:26 Order name: Hepatic Function; Complete Time: : [facility] 07/17 10:26 Order name: Lipase; Complete Time: : [facility] 07/17 12:16 Order name: Urine Dipstick--Ancillary (enter results); Complete Time: 12:49 [facility] 07/17 12:16 Order name: Urine --Ancillary (enter results); Complete Time: 12:49 [facility] 07/17 10:41 Order name: Abdomen 1 View (KUB) XRAY; Complete Time: 12:22 [facility] 07/17 12:48 Order name: CT Stone Protocol; Complete Time: 13:20 [facility] 07/17 15:51 Order name: COVID-19/FLU A+B; Complete Time: 15:51 [facility] 07/17 10:26 Order name: IV Saline Lock; Complete Time: 12:11 [facility] 07/17 10:26 Order name: Labs collected and sent; Complete Time: 12:11 [facility] 07/17 10:26 Order name: Urine Dipstick-Ancillary (obtain specimen); Complete Time: 12:10 [facility] 07/17 10:26 Order name: Urine Test (obtain specimen); Complete Time: 12:10 [facility] Administered Medications: 10:40 Drug: NS 0.9% 1000 ml Route: IV; Rate: 1 bolus; Site: left antecubital; em 12:00 Follow up: IV Status: Completed infusion; IV Intake: 1000ml em 10:40 Drug: Zofran (Ondansetron) 4 mg Route: IVP; Site: left antecubital; em 11:30 Follow up: Response: No adverse reaction em 10:42 Drug: morphine 4 mg Route: IVP; Site: left antecubital; em 11:30 Follow up: Response: No adverse reaction; Marked relief of symptoms; Pain is decreased; em RASS: Alert and Calm (0) 10:44 Drug: Ketorolac 30 mg Route: IVP; Site: left antecubital; em 11:30 Follow up: Response: No adverse reaction; Marked relief of symptoms; Pain is decreased em 11:03 Drug: Magnesium Sulfate 1 grams Route: IVPB; Infused Over: 1 hrs; Site: left em antecubital; 12:05 Follow up: Response: No adverse reaction; IV Status: Completed infusion; IV Intake: em 100ml 12:31 Drug: morphine 4 mg Route: IVP; Site: left antecubital; em 13:30 Follow up: Response: No adverse reaction; Marked relief of symptoms; Pain is decreased; em RASS: Alert and Calm (0) 13:56 Drug: Zofran (Ondansetron) 4 mg Route: IVP; Site: left antecubital; em 14:15 Follow up: Response: No adverse reaction; No change in condition em 13:58 Drug: Dilaudid 1 mg Route: IVP; Site: left antecubital; em 14:20 Follow up: Response: No adverse reaction; Marked relief of symptoms; Pain is decreased; em RASS: Alert and Calm (0) 14:23 Drug: Phenergan 12.5 mg Route: IVP; Site: left antecubital; em 14:54 Follow up: Response: No adverse reaction; Marked relief of symptoms; Nausea is decreasedem 16:43 Drug: Dilaudid 0.5 mg Route: IVP; Site: left antecubital; em 17:45 Follow up: Response: No adverse reaction; Marked relief of symptoms; Pain is decreased em Point of Care Testing: Urine : 12:10 hCG Reading: Negative; Control Reading: Positive; jp3 Disposition: 07/18 14:25 Co-signature as Attending Physician, Carmelo Grimes MD I agree with the assessment and kdr plan of care. Disposition: 07/17/20 14:27 Transfer ordered to Other Acute Care Facility. Diagnosis are Calculus of kidney and ureter, Intractable Pain. - Reason for transfer: Higher level of care. - Accepting physician is Dr. Machado. - Condition is Stable. - Problem is an acute exacerbation. - Symptoms are unchanged. Signatures: Dispatcher [employer] EDCarmelo Sexton MD MD [facility] Darren Jeronimo PA PA jmm Munoz, Edgar, RN RN em Yanet Huber RN RN ll1 Corrections: (The following items were deleted from the chart) 07/17 15:03 14:28 CORONAVIRUS+MR.LAB.BRZ ordered. EDOR EDOR 15:04 14:28 Influenza Screen (A \T\ B)+BA.LAB.BRZ ordered. EDOR EDMS 18:02 14:27 07/17/2020 14:27 Transfer ordered to Other Acute Care Facility. Diagnosis is em Calculus of kidney and ureter; Intractable Pain. Reason for transfer: Higher level of care. Accepting physician is Dr. Machado. Condition is Stable. Problem is an acute exacerbation. Symptoms are unchanged. [facility]
--- NOTE | 2020-07-17 14:28 | ER ---
Nurse's Notes [facility] Name: Margareth Chapa Age: 40 yrs Sex: Female : 1980 Arrival Date: 07/17/2020 Time: 10:04 Bed 26 Private MD: Diagnosis: Calculus of kidney and ureter;Intractable Pain Presentation: 07/17 10:20 Chief complaint: Patient states: Severe L flank pain came back today. Has known kidney ll1 stones L side, 3rd visit for the same. Saw Dr. Taylor yesterday. Coronavirus screen: Client denies travel out of the [place] in the last 14 days. At this time, the client does not indicate any symptoms associated with coronavirus-19. Ebola Screen: Patient denies travel to an Ebola-affected area in the 21 days before illness onset. Initial Sepsis Screen: Does the patient meet any 2 criteria? HR > 90 bpm. No. Patient's initial sepsis screen is negative. Does the patient have a suspected source of infection? Yes: Other: kidney stones. Risk Assessment: Do you want to hurt yourself or someone else? Patient reports no desire to harm self or others. Onset of symptoms was July 17, 2020. 10:20 Method Of Arrival: Wheelchair ll1 10:20 Acuity: AURELIO 3 ll1 Historical: - Allergies: 10:20 NKA; ll1 - PMHx: 10:20 Kidney stones; High Cholesterol; ll1 - PSHx: 10:20 Appendectomy; Tubal ligation; bunion sx; ll1 - Immunization history:: Flu vaccine is up to date. - Social history:: Smoking status: Patient denies any tobacco usage or history of. Screenin:35 Abuse screen: Denies threats or abuse. Nutritional screening: No deficits noted. em Tuberculosis screening: No symptoms or risk factors identified. Fall Risk None identified. Assessment: 10:25 General: Appears in no apparent distress. uncomfortable, Behavior is calm, cooperative, em appropriate for age, Denies fever. Pain: Complains of pain in left mid back Pain currently is 10 out of 10 on a pain scale. Noted to be crying, moaning. Neuro: Level of Consciousness is awake, alert, obeys commands, Oriented to person, place, time, situation, Appropriate for age. Cardiovascular: Capillary refill < 3 seconds Patient's skin is warm and dry. Respiratory: Airway is patent Respiratory effort is even, unlabored, Respiratory pattern is regular, symmetrical. GI: Reports nausea. Derm: Skin is intact, is healthy with good turgor, Skin is pink, warm \T\ dry. Musculoskeletal: Capillary refill < 3 seconds, Range of motion: intact in all extremities. 11:20 Reassessment: Patient appears in no apparent distress at this time. Patient and/or em family updated on plan of care and expected duration. Pain level reassessed. Patient is alert, oriented x 3, equal unlabored respirations, skin warm/dry/pink. rates pain 2/10 Patient states feeling better. Patient states symptoms have improved. 12:25 Reassessment: Patient appears in no apparent distress at this time. reports pain is em coming back, rates pain 4/10, provider notified, received VO for 4 mg morphine IVP x 1. 12:50 Reassessment: pt reports she does not want dilaudid at this time, rates pain 3/10. em 14:00 Reassessment: Patient appears in no apparent distress at this time. Patient and/or em family updated on plan of care and expected duration. Pain level reassessed. Patient is alert, oriented x 3, equal unlabored respirations, skin warm/dry/pink. 15:00 Reassessment: Patient appears in no apparent distress at this time. Patient and/or em family updated on plan of care and expected duration. Pain level reassessed. Patient is alert, oriented x 3, equal unlabored respirations, skin warm/dry/pink. pending transfer. 16:30 Reassessment: reports pain is coming back, 5/10, provider notified, received new em medication order for 0.5 mg Dilaudid IVP x 1. 16:40 Reassessment: report given to MAXI Zazueta at [facility], pending EMS transportation. em 17:55 Reassessment: report given to [facility]. em Vital Signs: 10:20 BP 119 / 82; Pulse 103; Resp 18; Temp 98.6; Pulse Ox 100% ; Weight 75.3 kg; Height 5 ll1 ft. 4 in. (162.56 cm); Pain 10/10; 11:00 BP 125 / 83; Pulse 92; Resp 18; Pulse Ox 100% on R/A; Pain 2/10; em 12:30 BP 122 / 71; Pulse 92; Resp 18; Pulse Ox 100% on R/A; Pain 4/10; em 13:30 BP 126 / 76; Pulse 87; Resp 18; Pulse Ox 100% on R/A; em 14:25 BP 114 / 66; Pulse 94; Resp 18; Pulse Ox 99% on R/A; em 16:30 BP 130 / 73; Pulse 87; Resp 18; Pulse Ox 99% on R/A; Pain 5/10; em 17:50 BP 127 / 85; Pulse 75; Resp 18; Pulse Ox 99% on R/A; Pain 4/10; em 10:20 Body Mass Index 28.49 (75.30 kg, 162.56 cm) ll1 ED Course: 10:04 Patient arrived in ED. rg4 10:19 Arm band placed on Patient placed in an exam room, on a stretcher. ll1 10:22 Triage completed. ll1 10:25 Darren Jeronimo PA is PHCP. [facility] 10:25 Carmelo Grimes MD is Attending Physician. jmm 10:32 Mart Levin, MAXI is Primary Nurse. em 10:35 Patient has correct armband on for positive identification. Placed in gown. Bed in low em position. Call light in reach. Side rails up X2. Pulse ox on. NIBP on. 10:40 Inserted saline lock: 20 gauge in left antecubital area, using aseptic technique. Blood em collected. 10:40 Initial lab(s) drawn, by me, sent to lab. em 11:23 Abdomen 1 View (KUB) XRAY In Process Unspecified. EDMS 12:10 Urine collected: clean catch specimen, clear, john colored. jp3 13:00 CT Stone Protocol In Process Unspecified. EDMS 14:14 initiated a transfer with Elisabeth Lala Rn from the [facility] transfer center. eb 14:20 admin approval given by Elisabeth Lala Rn/ patient has been accepted to [facility] ER/ Dr. Meier has accepted the patient in transfer without conference/ report to be called to [phone]. 14:21 Elisabeth from the [facility] Transfer Center called to ask if we could COVID Swab the patient eb and if it came back negative she would get the patient a bed upstairs instead of the ER at [facility]. 16:00 called and notified the [facility] transfer Center the patients covid results. eb 16:04 connected the hospitalist oncology physician for [facility] with Darren Casper for patient transfer eb consultation. 16:10 administrative approval given again by Og Ballesteros / Patient has been accepted to [facility] / Dr. Russell has accepted the patient in transfer/ report to be called to [phone]. 18:00 No provider procedures requiring assistance completed. Patient transferred, IV remains em in place. Administered Medications: 10:40 Drug: NS 0.9% 1000 ml Route: IV; Rate: 1 bolus; Site: left antecubital; em 12:00 Follow up: IV Status: Completed infusion; IV Intake: 1000ml em 10:40 Drug: Zofran (Ondansetron) 4 mg Route: IVP; Site: left antecubital; em 11:30 Follow up: Response: No adverse reaction em 10:42 Drug: morphine 4 mg Route: IVP; Site: left antecubital; em 11:30 Follow up: Response: No adverse reaction; Marked relief of symptoms; Pain is decreased; em RASS: Alert and Calm (0) 10:44 Drug: Ketorolac 30 mg Route: IVP; Site: left antecubital; em 11:30 Follow up: Response: No adverse reaction; Marked relief of symptoms; Pain is decreased em 11:03 Drug: Magnesium Sulfate 1 grams Route: IVPB; Infused Over: 1 hrs; Site: left em antecubital; 12:05 Follow up: Response: No adverse reaction; IV Status: Completed infusion; IV Intake: em 100ml 12:31 Drug: morphine 4 mg Route: IVP; Site: left antecubital; em 13:30 Follow up: Response: No adverse reaction; Marked relief of symptoms; Pain is decreased; em RASS: Alert and Calm (0) 13:56 Drug: Zofran (Ondansetron) 4 mg Route: IVP; Site: left antecubital; em 14:15 Follow up: Response: No adverse reaction; No change in condition em 13:58 Drug: Dilaudid 1 mg Route: IVP; Site: left antecubital; em 14:20 Follow up: Response: No adverse reaction; Marked relief of symptoms; Pain is decreased; em RASS: Alert and Calm (0) 14:23 Drug: Phenergan 12.5 mg Route: IVP; Site: left antecubital; em 14:54 Follow up: Response: No adverse reaction; Marked relief of symptoms; Nausea is decreasedem 16:43 Drug: Dilaudid 0.5 mg Route: IVP; Site: left antecubital; em 17:45 Follow up: Response: No adverse reaction; Marked relief of symptoms; Pain is decreased em Point of Care Testing: Urine : 12:10 hCG Reading: Negative; Control Reading: Positive; jp3 Intake: 12:00 IV: 1000ml; Total: 1000ml. em 12:05 IV: 100ml; Total: 1100ml. em Outcome: 14:27 ER care complete, transfer ordered by MD. [facility] 18:01 Transferred by ground EMS Transfer form completed. X-rays sent w/ patient. Note: [facility] 18:01 Condition: stable 18:01 Instructed on the need for transfer, Demonstrated understanding of instructions. 18:02 Patient left the ED. em Signatures: Dispatcher [employer] Darren Hays PA PA jmm Munoz, Edgar, RN RN Tia Reich rg4 Odalis Delvalle Jacob jp3 Yanet Huber, RN RN ll1
[2020-07-17] MEDS ORDERED: PROMETHAZINE INJ 25 MG/ML AMP ONE (14:35)
[2020-07-17 15:50] LABS: SARS-COV-2 RT PCR NEGATIVE (NEGATIVE)
[2020-07-17] MEDS ORDERED: HYDROMORPHONE HCL 0.5 MG/0.5 ML INJ ONE (16:44)
[2020-07-17 18:11] VITALS: TEMP 98.6
[2020-07-17 18:16] VITALS: O2SAT 99
[2020-07-17 18:19] VITALS: BP 127/85
== END 2020-07-17 18:02 ==
LOC: ER 10:01
DX: N20.2 Calculus of kidney with calculus of ureter (principal); R52 Pain, unspecified; Z20.822 Contact with and (suspected) exposure to COVID-19; Z87.442 Personal history of urinary calculi
CPT/HCPCS: 96365; 85025; 80048; 36415; 81025; 80076; 81003; 83690; 0240U; 76377; 74176; 74018; 96375; 99285; J2550; J3475; J1170 ×2; J7030; J2405 ×2

== ENCOUNTER 2022-03-25 07:51 | Emergency (ER) | payer BC ==
--- OUTSIDE RECORDS SUMMARY | 2022-03-25 07:57 | XMS REPORT | Continuity of Care Document ---
:1980 Author Organization [facility] t Address [address] [place] [address] Care Team Providers Name Role Phone Rupert Russell Attending Clinician Unavailable Rupert Russell Admitting Clinician Unavailable Payers Payer Name Policy Type Policy Number Effective Date Expiration Date S ource Problems This patient has no known problems. Allergies, Adverse Reactions, Alerts Allergy Allergy Status Severity Reaction(s) Onset Inactive Treating Comm ents Source Name Type Date Date Clinician No Known DA Active [facility] No Known DA Active [facility] 07[facility] 00:: [facility] No Known DA Active [facility] Contrast 12-22 [place] [facility] 00:: [facility] No Known DA Active U [facility] Drug 12-22 [place] Allergie 00:: d [facility] No Known DA Active U 2004- [facility] Food 12-22 [place] Allergie 00:: d [facility] No Known DA Active U [facility] Other 12-22 [place] Allergie 00:: d [facility] Medications This patient has no known medications. Procedures Procedure Date / Time Performed Performing Clinician Sourc e [id number] 2020-07-19 00:00:00 GAN[facility] [id number] 2020-07-19 00:00:00 [facility] Encounters Start End Encounter Admission Attending Care Care Encounter Source Date/Time Date/Time Type Type Clinicians Facility Department ID 2021-07-28 Outpatient STLMLC STLMLC [id number] Common 12:21:[id number] [facility] 2020-07-17 Inpatient DO Russell [facility].01 [id number] [facility] 16:28:[address] 2020-07-27 2020-07-27 Outpatient STLMLC STLMLC [id number] Common 00:00:00 00:00:00 [facility] 2020-07-17 2020-07-20 [facility] [id number] [facility] 19:04:00 12:54:[address] 2020-07-16 2020-07-16 Outpatient STLMLC STLMLC [id number] Common 00:00:00 00:00:00 [facility] Results Test Description Test Time Test Comments Results Result Comments Source CALCULI URINARY WITH PHOTO 2020-07-27 16:08:00 Test Item Value Reference Range Interpretation Comme nts ST COLOR (test code = COLST) Brown () ST SIZE (test code = SIZST) 3x2 mm () Multiple pieces received. Dimensions of the largest piecereported. ST WEIGHT (test code = WGTST) [address] mg () [address] COMPOSITION (test code = COMPST) Comment () Percentage (Represents the % composition) ST CA OXALATE DIHYDRATE (test code 70 % () = CAOXDST) ST CA OXALATE MONOHYDRATE (test 30 % () code = CAOXMST) ST PHOTO (test code = PHOTST) Comment () Photograph will follow under a separate cover ST COMMENT 3 (test code = CMTST3) Comment () Physician questions regarding Calculi Analysis contac [facility] at: [phone]. BASIC METABOLIC [id number] 05:09:00 Test Item Value Reference Range Interpretation Comments SODIUM (test code = NA) 139 mmol/L 134-147 N POTASSIUM (test code = 3.8 mmol/L 3.4-5.0 N K) CHLORIDE (test code = 109 mmol/L 100-108 H CL) CARBON DIOXIDE (test 25 mmol/L 21-32 N code = CO2) ANION GAP (test code = 5.0 GAP calc 4.0-15.0 N GAP) GLUCOSE (test code = 131 MG/DL 70-110 H GLU) BLOOD UREA NITROGEN 6 MG/DL 7-18 L (test code = BUN) GLOMERULAR FILTRATION >=60 max estimate >60 RATE (test code = GFR) estGFR CREATININE (test code = 0.7 MG/DL 0.6-1.0 N CREAT) CALCIUM (test code = CA) 8.8 MG/DL 8.5-10.1 N CBC W/AUTO [id number] 04:58:00 Test Item Value Reference Range Interpretation Comments WHITE BLOOD CELL (test code = 10.0 K/mm3 3.5-11.0 N WBC) RED BLOOD CELL (test code = 3.54 M/mm3 4.70-6.10 L RBC) HEMOGLOBIN (test code = HGB) 9.9 G/DL 10.4-14.9 L HEMATOCRIT (test code = HCT) 31.7 % 31.5-44.1 N MEAN CELL VOLUME (test code = 89.5 Fl 84.5-98.6 N MCV) MEAN CELL HGB (test code = MCH) 28.0 pg 27.0-34.2 N MEAN CELL HGB CONCETRATION 31.2 G/DL 31.5-34.0 L (test code = MCHC) RED CELL DISTRIBUTION WIDTH 14.2 SD 11.5-14.5 N (test code = RDW) PLATELET COUNT (test code = 429 K/mm3 150-450 N PLT) MEAN PLATELET VOLUME (test code 10.80 fL 7.0-10.5 H = MPV) NEUTROPHIL % (test code = NT%) 81.8 % 40-76 H IMMATURE GRANULOCYTE % (test 0.3 % 0.0-5.0 N code = IG%) LYMPHOCYTE % (test code = LY%) 13.4 % 20.5-51.1 L MONOCYTE % (test code = MO%) 4.2 % 1.7-9.3 N EOSINOPHIL % (test code = EO%) 0.1 % 0.0-6.0 N BASOPHIL % (test code = BA%) 0.2 % 0.0-2.0 N NUCLEATED RBC % (test code = 0.0 /100WBC% 0.0-1.0 N NRBC%) NEUTROPHIL # (test code = NT#) 8.2 K/mm3 1.8-7.6 H IMMATURE GRANULOCYTE # (test 0.03 x10 3/uL 0.00-0.03 N code = IG#) LYMPHOCYTE # (test code = LY#) 1.3 K/mm3 0.6-3.2 N MONOCYTE # (test code = MO#) 0.4 K/mm3 0.3-1.1 N EOSINOPHIL # (test code = EO#) 0.0 K/mm3 0.0-0.4 N BASOPHIL # (test code = BA#) 0.0 K/mm3 0.0-0.1 N NUCLEATED RBC # (test code = 0.0 K/mm3 0.0-0.1 N NRBC#) MANUAL DIFF REQUIRED (test code NO DIFF/SCN CRITERIA = MDIFF) - XR FLUOROSCOPY 0-60 [id number] 16:29:00 [facility] 1980 Sex: F Name: ROSEMARY JACQUES [facility] : 1980 Age/S: 40 / F [id number] Unit #: [id number] Loc: [place] [address] Phys: Rupert Russell MD Acct: [id number] Dis Date: 20200720 Status: DIS IN PHONE #: [phone] Exam Date: 07/19/2020 1344 FAX #: Reason: BILATERAL LITHOTRIPSY EXAMS: CPT: [id number] XR FLUOROSCOPY 0-60 MIN 74280 Fluoro Time: 51 DAP (Gy m2): Air Kerma (mGy): History: BILATERAL LITHOTRIPSY Comparison: None at this time Location: [facility] Number of images: 1 Note is made that a radiologist was not present for the procedure, and please refer to the procedure report for information regarding the procedure. Fluoroscopy time: 51 seconds There is a single image from the C-arm, demonstrating the distal aspect of a double-J left ureteral stent. at 1629 Reported and signed by: Edmundo Pichardo M.D. CC: Rupert Russell MD PAGE 1 Signed Report Name: GEORGIEROSEMARY HIPOLITO [facility] : 1980 Age/S: 40 / F [address] Unit #: [id number] Loc: [place] [address] Phys: Rupert Russell MD Acct: [id number] Dis Date: 20200720 Status: DIS IN PHONE #: [phone] Exam Date: 07/19/2020 1344 FAX #: Reason: BILATERAL LITHOTRIPSY EXAMS: CPT: [id number] XR FLUOROSCOPY 0-60 MIN 28452 Fluoro Time: 51 DAP (Gy m2): Air Kerma (mGy): <Continued> Technologist: RT Lesia(R)(CT) Trnscb Date/Time: 07/19/2020 (162) t.PMT Orig Print D/T: S: 07/19/2020 (4836) PAGE 2 Signed Report- XR FLUOROSCOPY 0-60 [id number] 16:29:00 [facility] 1980 Sex: F Name: ROSEMARY JACQUES [place] : 1980 Age/S: 40 / F [id number] Unit #: [id number] Loc: [place] [address] Phys: Rupert Russell MD Acct: [id number] Dis Date: Status: ADM IN PHONE #: [phone] Exam Date: 07/19/2020 1344 FAX #: Reason: BILATERAL LITHOTRIPSY EXAMS: CPT: [id number] XR FLUOROSCOPY 0-60 MIN 42213 Fluoro Time: 51 DAP (Gy m2): Air Kerma (mGy): History: BILATERAL LITHOTRIPSY Comparison: None at this time Location: [facility] Number of images: 1 Note is made that a radiologist was not present for the procedure, and please refer to the procedure report for information regarding the procedure. Fluoroscopy time: 51 seconds There is a single image from the C- arm, demonstrating the distal aspect of a double-J left ureteral stent. at 1629 Reported and signed by: Edmundo Pichardo M.D. CC: Rupert Russell MD PAGE 1 Signed Report Name: ROSEMARY JACQUES [place] : 1980 Age/S: 40 / F [address] Unit #: [id number] Loc: [place] [address] Phys: Rupert Russell MD Acct: [id number] Dis Date: Status: ADM IN PHONE #: [phone] Exam Date: 07/19/2020 1344 FAX #: Reason: BILATERAL LITHOTRIPSY EXAMS: CPT: [id number] XR FLUOROSCOPY 0-60 MIN 64300 Fluoro Time: 51 DAP (Gy m2): Air Kerma (mGy): (Continued) Technologist: Yajaira Clark RT(R)(CT) Trnscb Date/Time: 07/19/2020 (4723) [email or web address] Orig Print D/T: S: 07/19/2020 (7101) PAGE 2 Signed ReportCOVID 19 INHOUSE [id number] 12:15:00 Test Item Value Reference Range Interpretation Comments COVID 19 INHOUSE AG NEGATIVE Negative Per manu facturer, (test code = negative result s should [id number]) be treated aspr esumptive and, if inconsi stent with clinical signs andsymptoms or necessary for patient man agement, should betested with an alternative mol ecular assay. Negative resultsdo not preclude SA RS-CoV-2 infection and s hould not be usedas the s ole basis for patient man agement decisions. Nega tive results should be considered in t he context of apatient's r ecent exposures, hist ory, presence of cli nicalsigns and symptoms co nsistent with COVID-19. UR HCG [id number] 11:56:00 Test Item Value Reference Range Interpretation Comments UR HCG QUAL (test code = HCGQLU) NEGATIVE NEGATIVE UA RFLX MICR CULT IF [id number] 23:56:00 Test Item Value Reference Range Interpretation Comments UA COLOR (test code = YELLOW discript YEL/STRAW COLU) UA APPEARANCE (test code CLEAR discript CLEAR = APPU) UA GLUCOSE DIPSTICK (test NEGATIVE mg/dL NEG code = DGLUU) UA BILIRUBIN DIPSTICK NEGATIVE mg/dL NEG (test code = BILU) UA KETONE DIPSTICK (test TRACE mg/dL NEG code = KETU) UA SPECIFIC GRAVITY (test >=1.030 SG 1.005-1.030 A code = SGU) UA BLOOD DIPSTICK (test 2+ mg/DL NEG A code = LES) UA PH DIPSTICK (test code 6.0 pH UNITS 5.0-7.0 = MARIELLA) UA PROTEIN DIPSTICK (test NEGATIVE mg/dL NEG code = PROU) UA UROBILINIOGEN DIPSTICK 0.2 mg/dL <2.0 (test code = URO) UA NITRITE DIPSTICK (test NEGATIVE SCREEN NEG code = JUD) UA LEUKOCYTE ESTERASE NEGATIVE Leuk/mcL NEGATIVE DIPSTICK (test code = LEUU) UA WBC (test code = WBCU) 3-5 #WBC/HPF 0-3 A UA RBC (test code = RBCU) 10-20 #RBC/HPF 0-3 A UA BACTERIA (test code = TRACE /HPF NONE-TRACE BACU) UA SQUAMOUS CELLS (test TRACE /HPF NONE code = SQU) UA CULTURE NEEDED? (test NO, WBC<10 Criteria Culture CHK code = UACULT) Indication for culture: Dysuria/FrequencyBASIC METABOLIC [id number] 23:34:00 Test Item Value Reference Range Interpretation Comments SODIUM (test code = NA) 141 mmol/L 134-147 N POTASSIUM (test code = 3.6 mmol/L 3.4-5.0 N K) CHLORIDE (test code = 108 mmol/L 100-108 N CL) CARBON DIOXIDE (test 30 mmol/L 21-32 N code = CO2) ANION GAP (test code = 3.0 GAP calc 4.0-15.0 L GAP) GLUCOSE (test code = 94 MG/DL 70-110 N GLU) BLOOD UREA NITROGEN 11 MG/DL 7-18 N (test code = BUN) GLOMERULAR FILTRATION >=60 max estimate >60 RATE (test code = GFR) estGFR CREATININE (test code = 0.7 MG/DL 0.6-1.0 N CREAT) CALCIUM (test code = CA) 8.6 MG/DL 8.5-10.1 N UA RFLX MICR CULT IF [id number] 23:20:00 Test Item Value Reference Range Interpretation Comments UA COLOR (test code = COLU) YELLOW discript YEL/STRAW UA APPEARANCE (test code = CLEAR discript CLEAR APPU) UA GLUCOSE DIPSTICK (test NEGATIVE mg/dL NEG code = DGLUU) UA BILIRUBIN DIPSTICK (test NEGATIVE mg/dL NEG code = BILU) UA KETONE DIPSTICK (test TRACE mg/dL NEG code = KETU) UA SPECIFIC GRAVITY (test >=1.030 SG 1.005-1.030 A code = SGU) UA BLOOD DIPSTICK (test 2+ mg/DL NEG A code = LES) UA PH DIPSTICK (test code = 6.0 pH UNITS 5.0-7.0 MARIELLA) UA PROTEIN DIPSTICK (test NEGATIVE mg/dL NEG code = PROU) UA UROBILINIOGEN DIPSTICK 0.2 mg/dL <2.0 (test code = URO) UA NITRITE DIPSTICK (test NEGATIVE SCREEN NEG code = JUD) UA LEUKOCYTE ESTERASE NEGATIVE Leuk/mcL NEGATIVE DIPSTICK (test code = LEUU) UA CULTURE NEEDED? (test Criteria Culture CHK code = UACULT) Indication for culture: Dysuria/FrequencyCBC W/AUTO [id number] 21:18:00 Test Item Value Reference Range Interpretation Comments WHITE BLOOD CELL (test code = 9.7 K/mm3 3.5-11.0 N WBC) RED BLOOD CELL (test code = 3.72 M/mm3 4.70-6.10 L RBC) HEMOGLOBIN (test code = HGB) 10.5 G/DL 10.4-14.9 N HEMATOCRIT (test code = HCT) 32.1 % 31.5-44.1 N MEAN CELL VOLUME (test code = 86.3 Fl 84.5-98.6 N MCV) MEAN CELL HGB (test code = MCH) 28.2 pg 27.0-34.2 N MEAN CELL HGB CONCETRATION 32.7 G/DL 31.5-34.0 N (test code = MCHC) RED CELL DISTRIBUTION WIDTH 14.6 SD 11.5-14.5 H (test code = RDW) PLATELET COUNT (test code = 526 K/mm3 150-450 H PLT) MEAN PLATELET VOLUME (test code 11.30 fL 7.0-10.5 H = MPV) NEUTROPHIL % (test code = NT%) 64.9 % 40-76 N IMMATURE GRANULOCYTE % (test 0.2 % 0.0-5.0 N code = IG%) LYMPHOCYTE % (test code = LY%) 28.7 % 20.5-51.1 N MONOCYTE % (test code = MO%) 4.9 % 1.7-9.3 N EOSINOPHIL % (test code = EO%) 0.7 % 0.0-6.0 N BASOPHIL % (test code = BA%) 0.6 % 0.0-2.0 N NUCLEATED RBC % (test code = 0.0 /100WBC% 0.0-1.0 N NRBC%) NEUTROPHIL # (test code = NT#) 6.3 K/mm3 1.8-7.6 N IMMATURE GRANULOCYTE # (test 0.02 x10 3/uL 0.00-0.03 N code = IG#) LYMPHOCYTE # (test code = LY#) 2.8 K/mm3 0.6-3.2 N MONOCYTE # (test code = MO#) 0.5 K/mm3 0.3-1.1 N EOSINOPHIL # (test code = EO#) 0.1 K/mm3 0.0-0.4 N BASOPHIL # (test code = BA#) 0.1 K/mm3 0.0-0.1 N NUCLEATED RBC # (test code = 0.0 K/mm3 0.0-0.1 N NRBC#) MANUAL DIFF REQUIRED (test code NO DIFF/SCN CRITERIA = MDIFF)
[2022-03-25 08:55] LABS: Absolute Lymphocytes (CBC) 0.6 K/uL (0.7-4.9); Hematocrit 37.9 % (36.0-45.0); Lymphocytes % 8.4 % (15.3-44.8); MPV 8.3 fL (7.6-11.3); RBC Red Blood Cell Count 4.31 M/uL (3.86-4.86)
[2022-03-25 09:02] LABS: Albumin 3.4 g/dL (3.4-5.0); Bilirubin Total 0.3 mg/dL (0.2-1.0); Potassium 3.9 mmol/L (3.5-5.1)
[2022-03-25] MEDS ORDERED: NA CHLORIDE 0.9% 1,000 ML ONE (09:05)
[2022-03-25] MEDS ORDERED: ONDANSETRON 4 MG/2 ML VIAL ONE (09:05)
[2022-03-25 09:09] LABS: Urine Blood Trace-lysed (Negative); Urine Glucose Negative (Negative); Urine Protein 1+ (Negative); Urine Specific Gravity 1.025 (1.005-1.030)
[2022-03-25] MEDS ORDERED: MORPHINE 2 MG/ML SYR ONE (09:20)
[2022-03-25 09:41] LABS: Urine Mucus 1+ /HPF (None Seen); Urine WBC Clump Rare /HPF (None Seen)
--- NOTE | 2022-03-25 09:56 | RAD REPORT ---
EXAM DESCRIPTION: CT - Abdomen Pelvis W Contrast - 03/25/2022 9:41 am CLINICAL HISTORY: nausea and vomiting abd pain COMPARISON: [facility] Protocol dated 07/17/2020; [facility] Protocol dated 07/10/2020; [facility] Protocol dated 06/03; CT ABD PELVIS W CONTRAST dated 06/18/2011 TECHNIQUE: Biphasic, helical CT imaging of the abdomen and pelvis was performed following 100 ml non -ionic IV contrast. No oral contrast administered. All CT scans are performed using dose optimization technique as appropriate and may include automated exposure control or mA/KV adjustment according to patient size. FINDINGS: No suspicious findings in the lung bases. The liver, spleen, and pancreas show no suspicious findings. Gallbladder and biliary tree are also wi thout suspicious finding. Renal function is symmetric. No hydronephrosis or acute renal parenchymal process seen. No obstructin g calculi seen. Small cortical cysts are present. In the lower pole of the left kidney there are 9 mi llimeter and 8 millimeter sized nonobstructing calculi. Approximately 18 mm sized rounded cystic stru cture in the lower pole is probably a dilated calyx as the sequela of a calyx obstructing calculus. P arenchymal cyst development is possible. An aggressive or worrisome mass of the kidney is not suspect ed. This is not of acute clinical significance and can be monitored on any subsequent exam the patien t may have. No bladder abnormalities. No adrenal abnormalities. Uterus and ovaries show no suspicious findings. No dilated bowel loops or bowel wall thickening. No appendicitis findings. Fluid-filled distal small bowel loops and fluid-filled right-side colon noted and nonspecific. These can be seen with nonspecif ic enteritis. No free air, free fluid or inflammatory stranding. No hernia, mass or bulky lymphadeno jerilyn. No suspicious bony findings. IMPRESSION: Contrast enhanced CT abdomen and pelvis showing no acute or emergent finding. Nondilated fluid-filled distal small bowel and right-side colon pattern is nonspecific but could diogo krystal enteritis. Left renal lower pole calculi and cystic structure that is probably a dilated calyx. This is not seen as an emergent finding and can be monitored on subsequent CT study.
--- NOTE | 2022-03-25 10:28 | EDPHYS ---
Physician Documentation [facility] Name: Margareth Chapa Age: 41 yrs Sex: Female : 1980 Arrival Date: 03/25/2022 Time: 07:54 Bed 11 Private MD: ED Physician Jeanmarie Higgins HPI: 03/25 08:15 This 41 yrs old Female presents to ER via Ambulatory with complaints of rn Nausea, Diarrhea. 08:15 The patient presents to the emergency department with nausea, vomiting, diarrhea, rn abdominal pain. Onset: The symptoms/episode began/occurred yesterday. Possible causes: unknown. The symptoms are aggravated by nothing. The symptoms are alleviated by nothing. Associated signs and symptoms: Pertinent positives: abdominal pain, diarrhea, fever, nausea, vomiting, Pertinent negatives: GI bleeding. Severity of symptoms: At their worst the symptoms were moderate in the emergency department the symptoms are unchanged. The patient has not experienced similar symptoms in the past. The patient has not recently seen a physician. Pt reports nausea/vomiting/diarrhea/abd pain since yesterday. + fever/chills. No blood in stool. Reports daughter with "stomach bug" last week. . Historical: - Allergies: 08:07 NKA; iw - Home Meds: 08:07 Adipex-P oral [Active]; control [Active]; iw - PMHx: 08:07 High Cholesterol; Kidney stones; iw - PSHx: 08:07 Appendectomy; bunion; iw - Immunization history:: Client reports receiving the 2nd dose of the Covid vaccine. - Social history:: Smoking status: Patient denies any tobacco usage or history of. - Family history:: not pertinent. - Hospitalizations: : No recent hospitalization is reported. ROS: 08:15 Constitutional: + fever/chills Eyes: Negative for injury, pain, redness, and discharge, rn Neck: Negative for injury, pain, and swelling, Cardiovascular: Negative for chest pain, palpitations, and edema, Respiratory: Negative for shortness of breath, cough, wheezing, and pleuritic chest pain, Abdomen/GI: Negative for constipation Back: Negative for injury and pain, : Negative for injury, bleeding, discharge, and swelling, MS/Extremity: Negative for injury and deformity, Skin: Negative for injury, rash, and discoloration, Neuro: Negative for headache, numbness, tingling, and seizure. Exam: 08:15 Constitutional: This is a well developed, well nourished patient who is awake, alert, rn and in no acute distress. Head/Face: Normocephalic, atraumatic. ENT: dry MM Cardiovascular: Tachycardic, regular. No pulse deficits. Respiratory: No increased work of breathing, no retractions or nasal flaring. Abdomen/GI: soft, + mid abd tenderness, no masses or rebound Skin: Warm, dry MS/ Extremity: Pulses equal, no cyanosis. Neuro: Awake and alert, GCS 15 Vital Signs: 08:04 BP 135 / 83; Pulse 112; Resp 18; Temp 98.1; Pulse Ox 98% on R/A; Pain 8/10; bm7 09:15 Pulse 95; Resp 16 S; Pulse Ox 98% on R/A; bm7 10:48 BP 136 / 74; Pulse 66; Resp 16; Pulse Ox 100% on R/A; bm7 MDM: 08:02 Patient medically screened. rn 10:26 Differential diagnosis: Nonspecific abd pain, gastritis, cholecystitis, pancreatitis, rn diverticulitis, viral gastroenteritis, gastroenteritis. Data reviewed: vital signs, nurses notes, lab test result(s), radiologic studies, CT scan, and as a result, I will discharge patient. Counseling: I had a detailed discussion with the patient and/or guardian regarding: the historical points, exam findings, and any diagnostic results supporting the discharge/admit diagnosis, lab results, radiology results, the need for outpatient follow up, to return to the emergency department if symptoms worsen or persist or if there are any questions or concerns that arise at home. Response to treatment: the patient's symptoms have mildly improved after treatment, and as a result, I will discharge patient. Special discussion: I discussed with the patient/guardian in detail that at this point there is no indication for admission to the hospital. It is understood, however, that if the symptoms persist or worsen the patient needs to return immediately for re-evaluation. 03/25 08:13 Order name: SARS-COV-2 RT PCR (Document "Date of Onset" if Symptomatic) rn 03/25 08:39 Order name: Comprehensive Metabolic Panel; Complete Time: 09:14 EDMS 03/25 08:39 Order name: Lipase; Complete Time: 09:14 EDMS 03/25 08:39 Order name: CBC with Automated Diff; Complete Time: 09:02 EDMS 03/25 09:09 Order name: Urine Dipstick-Ancillary; Complete Time: 09:14 EDMS 03/25 09:14 Order name: Urine Microscopic Only; Complete Time: 10:25 EDMS 03/25 09:34 Order name: Influenza Screen (A ; Complete Time: 10:25 EDMS 03/25 09:37 Order name: SARS-COV-2 RT PCR; Complete Time: 10:25 EDMS 03/25 10:14 Order name: Urine Culture EDMS 03/25 08:13 Order name: CT Abd/Pelvis - IV Contrast Only rn 03/25 08:13 Order name: IV Saline Lock; Complete Time: 09:10 rn 03/25 08:13 Order name: Labs collected and sent; Complete Time: 09:10 rn 03/25 08:13 Order name: Urine Dipstick-Ancillary (obtain specimen); Complete Time: 09:10 rn 03/25 08:13 Order name: Urine Test (obtain specimen); Complete Time: 09: rn 03/25 09:00 Order name: Abdomen ; Complete Time: 10:25 EDMS Administered Medications: 09:02 Drug: NS 0.9% 1000 ml Route: IV; Rate: 1 bolus; Site: left antecubital; iw 10:50 Follow up: IV Status: Completed infusion; IV Intake: 1000ml bm7 09:02 Drug: Zofran (Ondansetron) 4 mg Route: IVP; Site: left antecubital; iw 10:50 Follow up: Response: Nausea is decreased bm7 09:14 Drug: morphine 2 mg Route: IVP; Infused Over: 4 mins; Site: left antecubital; bm7 10:49 Follow up: Response: Pain is decreased bm7 10:42 Drug: Pepcid (famotidine) 20 mg Route: IVP; Site: left antecubital; bm7 10:49 Follow up: Response: No adverse reaction bm7 10:42 Drug: Bentyl (dicyclomine) 20 mg Route: PO; bm7 10:49 Follow up: Response: No adverse reaction bm7 Disposition Summary: 03/25/22 10:27 Discharge Ordered Location: Home rn Problem: new rn Symptoms: have improved rn Condition: Stable rn Diagnosis - Nausea with vomiting, unspecified rn - Diarrhea, unspecified rn - Infectious gastroenteritis and colitis, unspecified rn Followup: rn - With: Private Physician - When: As needed - Reason: Recheck today's complaints, Re-evaluation by your physician Discharge Instructions: - Discharge Summary Sheet rn - Diarrhea, Adult rn - Nausea and Vomiting, Adult rn - Viral Gastroenteritis, Adult rn Forms: - Medication Reconciliation Form rn - Thank You Letter rn - Antibiotic yarn cleaner - Prescription Opioid Use rn Prescriptions: - ondansetron 4 mg Oral tablet,disintegrating - take 1 tablet by ORAL route every 8 hours As needed; 15 tablet; Refills: 0, rn Product Selection Permitted Signatures: Dispatcher [employer] Nettie Dunbar RN RN Jeanmarie Rutledge MD MD rn McCarthy, Brittany, RN RN bm7 Corrections: (The following items were deleted from the chart) 09:00 08:22 Chest Abdomen Pelvis W Cont ordered. EDND EDMS
--- NOTE | 2022-03-25 10:28 | ER ---
Nurse's Notes [facility] Name: Margareth Chapa Age: 41 yrs Sex: Female : 1980 Arrival Date: 03/25/2022 Time: 07:54 Bed 11 Private MD: Diagnosis: Nausea with vomiting, unspecified;Diarrhea, unspecified;Infectious gastroenteritis and colitis, unspecified Presentation: 03/25 08:04 Chief complaint: Patient states: yesterday thinks she ate something bad, vomiting, iw diarrhea since then. Coronavirus screen: Client presents with at least one sign or symptom that may indicate coronavirus-19. Ebola Screen: Patient negative for fever greater than or equal to 101.5 degrees Fahrenheit, and additional compatible Ebola Virus Disease symptoms Patient denies exposure to infectious person. Patient denies travel to an Ebola-affected area in the 21 days before illness onset. No symptoms or risks identified at this time. 08:04 Method Of Arrival: Ambulatory iw 08:09 Initial Sepsis Screen: Does the patient meet any 2 criteria? No. Patient's initial iw sepsis screen is negative. Does the patient have a suspected source of infection? No. Patient's initial sepsis screen is negative. Risk Assessment: Do you want to hurt yourself or someone else? Patient reports no desire to harm self or others. Onset of symptoms was March 24, 2022. 08:09 Acuity: AURELIO 3 iw Historical: - Allergies: 08:07 NKA; iw - Home Meds: 08:07 Adipex-P oral [Active]; control [Active]; iw - PMHx: 08:07 High Cholesterol; Kidney stones; iw - PSHx: 08:07 Appendectomy; bunion; iw - Immunization history:: Client reports receiving the 2nd dose of the Covid vaccine. - Social history:: Smoking status: Patient denies any tobacco usage or history of. - Family history:: not pertinent. - Hospitalizations: : No recent hospitalization is reported. Screenin:16 Abuse screen: Denies threats or abuse. Denies injuries from another. Nutritional bm7 screening: No deficits noted. Tuberculosis screening: No symptoms or risk factors identified. Fall Risk None identified. Assessment: 09:16 Reassessment: Patient appears in no apparent distress at this time. Patient and/or bm7 family updated on plan of care and expected duration. Pain level reassessed. Patient is alert, oriented x 3, equal unlabored respirations, skin warm/dry/pink. 10:01 Reassessment: Patient and/or family updated on plan of care and expected duration. Pain bm7 level reassessed. Patient is alert, oriented x 3, equal unlabored respirations, skin warm/dry/pink. Vital Signs: 08:04 BP 135 / 83; Pulse 112; Resp 18; Temp 98.1; Pulse Ox 98% on R/A; Pain 8/10; bm7 09:15 Pulse 95; Resp 16 S; Pulse Ox 98% on R/A; bm7 10:48 BP 136 / 74; Pulse 66; Resp 16; Pulse Ox 100% on R/A; bm7 ED Course: 07:54 Patient arrived in ED. rg4 08:02 Jeanmarie Higgins MD is Attending Physician. rn 08:04 Nettie Patel RN is Primary Nurse. iw 08:09 Triage completed. iw 08:09 Arm band placed on. iw 08:52 COVID swab sent to lab. Flu and/or RSV swab sent to lab. Inserted saline lock: 22 gauge dh3 in left antecubital area, using aseptic technique. Blood collected. 09:43 Abdomen In Process Unspecified. EDMS 10:01 No apparent distress. Resting quietly. Awaiting lab results. bm7 10:01 Patient has correct armband on for positive identification. Bed in low position. Call bm7 light in reach. Side rails up X 1. Client placed on continuous cardiac and pulse oximetry monitoring. NIBP monitoring applied. Warm blanket given. 10:01 Patient maintains SpO2 saturation greater than 95% on room air. bm7 10:48 No provider procedures requiring assistance completed. IV discontinued, intact, bm7 bleeding controlled, No redness/swelling at site. Pressure dressing applied. Administered Medications: 09:02 Drug: NS 0.9% 1000 ml Route: IV; Rate: 1 bolus; Site: left antecubital; iw 10:50 Follow up: IV Status: Completed infusion; IV Intake: 1000ml bm7 09:02 Drug: Zofran (Ondansetron) 4 mg Route: IVP; Site: left antecubital; iw 10:50 Follow up: Response: Nausea is decreased bm7 09:14 Drug: morphine 2 mg Route: IVP; Infused Over: 4 mins; Site: left antecubital; bm7 10:49 Follow up: Response: Pain is decreased bm7 10:42 Drug: Pepcid (famotidine) 20 mg Route: IVP; Site: left antecubital; bm7 10:49 Follow up: Response: No adverse reaction bm7 10:42 Drug: Bentyl (dicyclomine) 20 mg Route: PO; bm7 10:49 Follow up: Response: No adverse reaction bm7 Medication: 10:01 VIS not applicable for this client. bm7 Intake: 10:50 IV: 1000ml; Total: 1000ml. bm7 Outcome: 10:27 Discharge ordered by . rn 10:48 Discharged to home ambulatory. bm7 10:48 Condition: good 10:48 Discharge instructions given to patient, family, Instructed on discharge instructions, follow up and referral plans. medication usage, Demonstrated understanding of instructions, follow-up care, medications, Prescriptions given X 1. 10:51 Patient left the ED. bm7 Signatures: Dispatcher [employer] EDNettie Chacon, MAXI RN Jeanmarie Rutledge MD MD rn Garcia, Rubi 4 Laurence Villarreal 3 Janice Reynoso, MAXI RN bm7 Corrections: (The following items were deleted from the chart) 09:15 08:04 BP 135 / 83; Pulse 112bpm; Resp 18bpm; Pulse Ox 98% RA; Pain 8/10; bm7
[2022-03-25] MEDS ORDERED: DICYCLOMINE HCL 20 MG/2 ML AMP IM ONE (10:49)
[2022-03-25] MEDS ORDERED: FAMOTIDINE 20 MG/2 ML VIAL IV ONE (10:49)
[2022-03-25] MEDS ORDERED: DICYCLOMINE HCL 10 MG CAP ONE (10:50)
[2022-03-25] MEDS ORDERED: ACETAMINOPHEN 500 MG TAB ONE (12:34)
[2022-03-26 19:19] VITALS: TEMP 98.1
[2022-03-26 19:25] VITALS: BP 136/74; O2SAT 100
== END 2022-03-25 10:51 | disposition home or self-care (01) ==
LOC: ER 07:51
DX: A09 Infectious gastroenteritis and colitis, unspecified (principal); Z20.822 Contact with and (suspected) exposure to COVID-19
CPT/HCPCS: 96361; 87088; 85025; 87086; 36415; 83690; 80053; 87804 ×2; 74177; 96375; 96374; 99284; U0003; Q9967; J2270; J7030; J2405; 81003; 81015; J0500

== ENCOUNTER → 2023-09-13 | Emergency (ER) | payer BC ==
[~2023-09-13] MED LIST: FAMOTIDINE 20 MG/2 ML VIAL IV ONE; MORPHINE 4 MG/ML SYR ONE; NA CHLORIDE 0.9% 1,000 ML ONE; ONDANSETRON 4 MG/2 ML VIAL ONE
--- OUTSIDE RECORDS SUMMARY | 2023-09-13 15:57 | XMS REPORT | Continuity of Care Document ---
Author Name Unknown Address [address] [facility] [place] [address] [facility] thconnect Address [address] [facility] [place] [address] Care Team Providers Care Production Bow Maker Name Role Phone Rupert Russell Attending Clinician Unavailabl e Rupert Russell Admitting Clinician Unavailabl e Payers Payer Name Policy Type Policy Number Effective Date Expirati on Date Source AETNA C1 [id number] Common Sp dianelys [facility] AETNA C1 [id number] [facility] Problems Condition Name Condition Details Condition Category Status Onset Date Resolution Date Last Treatment Date Treating Clinician Comments Source Kidney stone Bilateral kidney stones Problem Active [facility] [id number] Ureterolit hiasis Problem Active [facility] Allergies, Adverse Reactions, Alerts Allergy Name Allergy Type Status Severity Reaction(s) Onset Date Inactive Date Treating Clinician Comments Source No Known Allergie s DA Active U 07-17 00:00: 00 [facility] No Known Allergie s DA Active U 07-17 00:00: 00 [facility] No Known Contrast Allergie s DA Active U 12-22 00:00: 00 [facility] No Known Drug Allergie s DA Active U 12-22 00:00: 00 [facility] No Known Food Allergie s DA Active U 12-22 00:00: 00 [facility] No Known Other Allergie s DA Active U 12-22 00:00: 00 [facility] Social History Social Habit Start Date Stop Date Quantity Comments Source History of Tobacco Use [facility] Sex Assigned At [facility] Smoking Status Start Date Stop Date Source Never Smoker [facility] Medications Ordered Medication Name Filled Medication Name Start Date Stop Date Current Medication? Ordering Clinician Indication Dosage Frequency Signature (SIG) Comments Components Source Vitamin C 500 MG Vitamin C 500 MG No Vitamin C 500 MG [facility] Probiotic - Probiotic - No Pr obiotic - [facility] Vitamin E 600 UNIT Vitamin E 600 UNIT No 1{capsu le} QD Vitamin E 600 UNIT Vitamin C 500 MG Vitamin C 500 MG No Vitamin C 500 MG Probiotic - Probiotic - No Pr obiotic - Vitamin E 600 UNIT Vitamin E 600 UNIT No 1{capsu le} QD Vitamin E 600 UNIT [facility] Vital Signs Vital Name Observation Time Observation Value Comments S madi height 2020-07-16 10:00:00 64 [in_i] Commo n [facility] weight 2020-07-16 10:00:00 166.8 [lb_av] Co mmon [facility] temperature 2020-07-16 10:00:00 97.9 [degF] Com mon [facility] bmi 2020-07-16 10:00:00 28.63 kg/m2 Comm on [facility] oximetry 2020-07-16 10:00:00 100 % Commo n [facility] blood pressure systolic 2020-07-16 10:00:00 142 mm[Hg] [facility] blood pressure diastolic 2020-07-16 10:00:00 81 mm[Hg] [facility] Procedures Procedure Date / Time Performed Performing Clinicia n Source [id number] 2020-07-19 00:00:00 [facility] [id number] 2020-07-19 00:00:00 [facility] Encounters Start Date/Time End Date/Time Encounter Type Admission Type Attending Clinicians Care Facility Care Department Encounter ID Source 2021-07-28 12:21:08 Outpatient STLMLC STLMLC [id number] [facility] 2020-07-17 16:28:00 [id number] [facility] 2020-07-27 00:00:00 2020-07-27 00:00:00 (TEL) STLMLC STLC [id number] [facility] 2020-07-17 19:04:00 2020-07-20 12:54:00 Inpatient UR Brad Russellsh [facility] MEDI.[id number] [facility] 2020-07-16 00:00:00 2020-07-16 00:00:00 OFFICE VISIT NEW PT LEVEL 2 STLMLC STLMLC [id number] [facility] Results Test Description Test Time Test Comments Results Result Co mments Source BASIC METABOLIC [id number] 05:09:00* Test Item Value Reference Range Interpretation Comme nts SODIUM (test code = NA) 139 mmol/L 134-147 N POTASSIUM (test code = K) 3.8 mmol/L 3.4-5.0 N CHLORIDE (test code = CL) 109 mmol/L 100-108 H CARBON DIOXIDE (test code = CO2) 25 mmol/L 21-32 N ANION GAP (test code = GAP) 5.0 GAP calc 4.0-15.0 N GLUCOSE (test code = GLU) 131 MG/DL 70-110 H BLOOD UREA NITROGEN (test code = BUN) 6 MG/DL 7-18 L GLOMERULAR FILTRATION RATE (test code = GFR) >=60 max estimate estGFR >60 CREATININE (test code = CREAT) 0.7 MG/DL 0.6-1.0 N CALCIUM (test code = CA) 8.8 MG/DL 8.5-10.1 N CBC W/AUTO [id number] 04:58:00* Test Item Value Reference Range Interpretation Comme nts WHITE BLOOD CELL (test code = WBC) 10.0 K/mm3 3.5-11.0 N RED BLOOD CELL (test code = RBC) 3.54 M/mm3 4.70-6.10 L HEMOGLOBIN (test code = HGB) 9.9 G/DL 10.4-14.9 L HEMATOCRIT (test code = HCT) 31.7 % 31.5-44.1 N MEAN CELL VOLUME (test code = MCV) 89.5 Fl 84.5-98.6 N MEAN CELL HGB (test code = MCH) 28.0 pg 27.0-34.2 N MEAN CELL HGB CONCETRATION (test code = MCHC) 31.2 G/DL 31.5-34.0 L RED CELL DISTRIBUTION WIDTH (test code = RDW) 14.2 SD 11.5-14.5 N PLATELET COUNT (test code = PLT) 429 K/mm3 150-450 N MEAN PLATELET VOLUME (test c ode = MPV) 10.80 fL 7.0-10.5 H NEUTROPHIL % (test code = NT%) 81.8 % 40-76 H IMMATURE GRANULOCYTE % (test code = IG%) 0.3 % 0.0-5.0 N LYMPHOCYTE % (test code = LY%) 13.4 % 20.5-51.1 L MONOCYTE % (test code = MO%) 4.2 % 1.7-9.3 N EOSINOPHIL % (test code = EO%) 0.1 % 0.0-6.0 N BASOPHIL % (test code = BA%) 0.2 % 0.0-2.0 N NUCLEATED RBC % (test code = NRBC%) 0.0 /100WBC% 0.0-1.0 N NEUTROPHIL # (test code = NT#) 8.2 K/mm3 1.8-7.6 H IMMATURE GRANULOCYTE # (test code = IG#) 0.03 x10 3/uL 0.00-0.03 N LYMPHOCYTE # (test code = LY#) 1.3 K/mm3 0.6-3.2 N MONOCYTE # (test code = MO#) 0.4 K/mm3 0.3-1.1 N EOSINOPHIL # (test code = EO#) 0.0 K/mm3 0.0-0.4 N BASOPHIL # (test code = BA#) 0.0 K/mm3 0.0-0.1 N NUCLEATED RBC # (test code = NRBC#) 0.0 K/mm3 0.0-0.1 N MANUAL DIFF REQUIRED (test c ode = MDIFF) NO DIFF/SCN CRITERIA - XR FLUOROSCOPY 0-60 [id number] 16:29:00 [facility] 1980 Sex: FName: ROSEMARY CHAPA [facility] : 1980 Age/S: 40 / F [address] Unit #: [id number] Loc: [place] [address] Phys: Rupert Russell MD Acct: [id number] Dis Date: Status: ADM IN PHONE #: [phone] Exam Date: 07/19/2020 1344 FAX #: Reason: BILATERAL LITHOTRIPSY EXAMS: CPT: [id number] XR FLUOROSCOPY 0-60 MIN 59620 Fluoro Time: 51 DAP (Gy m2): Air Kerma (mGy): History: BILATERAL LITHOTRIPSY Comparison: None at this time Location: H45 Number of images: 1 Note is made thata radiologist was not present for the procedure, and please refer to the procedure report for information regarding the procedure. Fluoroscopy time: 51 seconds There is a single image from the C-arm, demonstrating the distal aspect of a double-J left ureteral stent. at 1629 Reported and signed by: Edmundo Pichardo M.D. CC:Rupert Russell MD PAGE 1 Signed Report Name: ROSEMARY CHAPA [facility] : 1980 Age/S: 40 / F [address] Unit #: [id number] Loc: [place] [address] Phys: Rupert Russell MDAcct: [id number] Dis Date: Status: ADM IN PHONE #: [phone] Exam Date: 07/19/2020 1344 FAX #: Reason: BILATERAL LITHOTRIPSY EXAMS: CPT: [id number] XR FLUOROSCOPY 0-60 MIN 77206 Fluoro Time: 51DAP (Gy m2): Air Kerma (mGy): (Continued) Technologist: Yajaira [place], RT(R)(CT) Trnscb Date/Time: 07/19/2020 (957) t.SDR.PMT Orig Print D/T: S: 07/19/2020 (1977) PAGE 2 Signed Report- XR FLUOROSCOPY 0-60 [id number] 16:29:00 [facility] : 1980 Sex: FName: ROSEMARY CHAPA [facility] : 1980 Age/S: 40 / F [address] Unit #: [id number] Loc: [place] [address] Phys: Rupert Russell MD Acct: [id number] Dis Date: 20200720 Status: DIS IN PHONE #: [phone] Exam Date: 07/19/2020 1344 FAX #: Reason: BILATERAL LITHOTRIPSY EXAMS: CPT: [id number] XR FLUOROSCOPY 0-60 MIN 78455 Fluoro Time: 51 DAP (Gy m2): Air Kerma (mGy): History: BILATERAL LITHOTRIPSY Comparison: None at this time Location: H45 Number of images: 1 Note is made [...] MD PAGE 1 Signed Report Name: ROSEMARY CHAPA : 1980 Age/S: 40 / F [id number] Unit #: [id number] Loc: [place] [address] Phys: Rupert Russell MD Acct: [id number] Dis Date: 20200720 Status: DIS IN PHONE #: [phone] Exam Date: 07/19/2020 1344 FAX #: Reason: BILATERAL LITHOTRIPSY EXAMS: CPT: [id number] XR FLUOROSCOPY 0-60 MIN 15692 Fluoro Time: 51 DAP (Gy m2): Air Kerma (mGy): <Continued> Technologist: RT Lesia(R)(CT) Trnscb Date/Time: 07/19/2020 (1629) t.CHARLEYR.PMT Orig Print D/T: S: 07/19/2020 (3428) PAGE 2 Signed ReportCOVID 19 INHOUSE [id number] 12:15:00* Test Item Value Reference Range Interpretation Comme nts COVID 19 INHOUSE AG (test code = [id number]) NEGATIVE Negative Per production clerks supervisor , negative results should be treated aspresumptive and, if inconsistent with clinical signs andsymptoms or necessary for patient management, should betested with an alternative molecular assay. Negative resultsdo not preclude SARS-CoV-2 infection and should not be usedas the sole basis for patient management decisions. Negative results should be considered in the context of apatient's recent exposures, history, presence of clinicalsigns and symptoms consistent with COVID-19. UR HCG [id number] 11:56:00* Test Item Value Reference Range Interpretation Comme nts UR HCG QUAL (test code = HCGQLU) NEGATIVE NEGATIVE UA RFLX MICR CULT IF [id number] 23:56:00* Test Item Value Reference Range Interpretation Comme nts UA COLOR (test code = COLU) YELLOW discript YEL/STRAW UA APPEARANCE (test code = APPU) CLEAR discript CLEAR UA GLUCOSE DIPSTICK (test code = DGLUU) NEGATIVE mg/dL NEG UA BILIRUBIN DIPSTICK (test code = BILU) NEGATIVE mg/dL NEG UA KETONE DIPSTICK (test code = KETU) TRACE mg/dL NEG UA SPECIFIC GRAVITY (test code = SGU) >=1.030 SG 1.005-1.030 A UA BLOOD DIPSTICK (test code = LES) 2+ mg/DL NEG A UA PH DIPSTICK (test code = MARIELLA) 6.0 pH UNITS 5.0-7.0 UA PROTEIN DIPSTICK (test code = PROU) NEGATIVE mg/dL NEG UA UROBILINIOGEN DIPSTICK (test code = URO) 0.2 mg/dL <2.0 UA NITRITE DIPSTICK (test code = JUD) NEGATIVE SCREEN NEG UA LEUKOCYTE ESTERASE DIPSTICK (test code = LEUU) NEGATIVE Leuk/mcL NEGATIVE UA WBC (test code = WBCU) 3-5 #WBC/HPF 0-3 A UA RBC (test code = RBCU) 10-20 #RBC/HPF 0-3 A UA BACTERIA (test code = BACU) TRACE /HPF NONE-TRACE UA SQUAMOUS CELLS (test code = SQU) TRACE /HPF NONE UA CULTURE NEEDED? (test code = UACULT) NO, WBC<10 Criteria Culture CHK Indication for culture: Dysuria/FrequencyBASIC METABOLIC [id number] 23:34:00* Test Item Value Reference Range Interpretation Comme nts SODIUM (test code = NA) 141 mmol/L 134-147 N POTASSIUM (test code = K) 3.6 mmol/L 3.4-5.0 N CHLORIDE (test code = CL) 108 mmol/L 100-108 N CARBON DIOXIDE (test code = CO2) 30 mmol/L 21-32 N ANION GAP (test code = GAP) 3.0 GAP calc 4.0-15.0 L GLUCOSE (test code = GLU) 94 MG/DL 70-110 N BLOOD UREA NITROGEN (test code = BUN) 11 MG/DL 7-18 N GLOMERULAR FILTRATION RATE (test code = GFR) >=60 max estimate estGFR >60 CREATININE (test code = CREAT) 0.7 MG/DL 0.6-1.0 N CALCIUM (test code = CA) 8.6 MG/DL 8.5-10.1 N UA RFLX MICR CULT IF [id number] 23:20:00* Test Item Value Reference Range Interpretation Comme nts UA COLOR (test code = COLU) YELLOW discript YEL/STRAW UA APPEARANCE (test code = APPU) CLEAR discript CLEAR UA GLUCOSE DIPSTICK (test code = DGLUU) NEGATIVE mg/dL NEG UA BILIRUBIN DIPSTICK (test code = BILU) NEGATIVE mg/dL NEG UA KETONE DIPSTICK (test code = KETU) TRACE mg/dL NEG UA SPECIFIC GRAVITY (test code = SGU) >=1.030 SG 1.005-1.030 A UA BLOOD DIPSTICK (test code = LES) 2+ mg/DL NEG A UA PH DIPSTICK (test code = MARIELLA) 6.0 pH UNITS 5.0-7.0 UA PROTEIN DIPSTICK (test code = PROU) NEGATIVE mg/dL NEG UA UROBILINIOGEN DIPSTICK (test code = URO) 0.2 mg/dL <2.0 UA NITRITE DIPSTICK (test code = JUD) NEGATIVE SCREEN NEG UA LEUKOCYTE ESTERASE DIPSTICK (test code = LEUU) NEGATIVE Leuk/mcL NEGATIVE UA CULTURE NEEDED? (test code = UACULT) Criteria Culture CHK Indication for culture: Dysuria/FrequencyCBC W/AUTO [id number] 21:18:00* Test Item Value Reference Range Interpretation Comme nts WHITE BLOOD CELL (test code = WBC) 9.7 K/mm3 3.5-11.0 N RED BLOOD CELL (test code = RBC) 3.72 M/mm3 4.70-6.10 L HEMOGLOBIN (test code = HGB) 10.5 G/DL 10.4-14.9 N HEMATOCRIT (test code = HCT) 32.1 % 31.5-44.1 N MEAN CELL VOLUME (test code = MCV) 86.3 Fl 84.5-98.6 N MEAN CELL HGB (test code = MCH) 28.2 pg 27.0-34.2 N MEAN CELL HGB CONCETRATION (test code = MCHC) 32.7 G/DL 31.5-34.0 N RED CELL DISTRIBUTION WIDTH (test code = RDW) 14.6 SD 11.5-14.5 H PLATELET COUNT (test code = PLT) 526 K/mm3 150-450 H MEAN PLATELET VOLUME (test c ode = MPV) 11.30 fL 7.0-10.5 H NEUTROPHIL % (test code = NT%) 64.9 % 40-76 N IMMATURE GRANULOCYTE % (test code = IG%) 0.2 % 0.0-5.0 N LYMPHOCYTE % (test code = LY%) 28.7 % 20.5-51.1 N MONOCYTE % (test code = MO%) 4.9 % 1.7-9.3 N EOSINOPHIL % (test code = EO%) 0.7 % 0.0-6.0 N BASOPHIL % (test code = BA%) 0.6 % 0.0-2.0 N NUCLEATED RBC % (test code = NRBC%) 0.0 /100WBC% 0.0-1.0 N NEUTROPHIL # (test code = NT#) 6.3 K/mm3 1.8-7.6 N IMMATURE GRANULOCYTE # (test code = IG#) 0.02 x10 3/uL 0.00-0.03 N LYMPHOCYTE # (test code = LY#) 2.8 K/mm3 0.6-3.2 N MONOCYTE # (test code = MO#) 0.5 K/mm3 0.3-1.1 N EOSINOPHIL # (test code = EO#) 0.1 K/mm3 0.0-0.4 N BASOPHIL # (test code = BA#) 0.1 K/mm3 0.0-0.1 N NUCLEATED RBC # (test code = NRBC#) 0.0 K/mm3 0.0-0.1 N MANUAL DIFF REQUIRED (test c ode = MDIFF) NO DIFF/SCN CRITERIA Notes Date/Time Note Provider Source 2020-07-20 22:52:00 [id number] Wy20XnYvuRDSyKffGHsJ5TAk1KiRi 2lFWIJsODEnq9oZZg/vY+ifl52pGNn5w0R7081-05-21M63:5 2:00 [facility])Urology Progress NoteREPORT#:[id number] REPORT STATUS: SignedDATE:07/20/20 TIME:2251 PATIENT: ROSEMARY CHAPA UNIT #: [id number]#: [id number] [address] AGE: 40 SEX: F ATTEND: [facility] AUTHOR: Roque Hogan MD * ALL edits or amendments must be made on the electronic/computer document * SubjectiveChief Complaint:left ureteral calculiComments:patient seen at 10ampatient having bilateral flank pain, pelvic painimproved this morning Objective GeneralVS/I O:Last Documented: Result Date Time Pulse Ox 99 07/20 1114 B/P 133/82 07/20 1114 B/P Mean 98.9 07/20 1114 O2 Delivery Room air 07/20 1114 Temp 97.9 07/20 1114 Pulse 73 07/20 1114 Resp 16 07/20 1114 O2 Flow Rate 2 07/19 1602 24 hour I O ending at 0700: 07/20 0700 07/19 1900 Intake Total 1000.00 100.00 Output Total Balance 1000.00 100.00 Intake, IV 1000.00 100.00 PATIENT WEIGHT: Weight (lb): 166Weight (oz): 5.6Weight (kg): 75.455 Physical ExamGeneral appearance: alert, awake, orientedRespiratory: aerating well, symmetric expansionAbdomen: soft, non-tender, no guarding, no rebound Diagnosis, Assessment PlanFree Text A P:A: left ureteral calculi, renal calculi P: s/p bilateral ureteroscopyd/w pt stent removalok to dc homewill arrange follow up at 2253 RPT #: [id number] OF REPORT PRProgress Lyyf6464-69-45K50:52:00L.RFQP56658848-1130EDYtdwt able for patient smrcGDDZRKQTRCWOBS5989-25-52H56:54:13 [facility] 2020-07-19 22:44:00 [id number] iJrokr8N+XVbkbCBJDJYFlN70lPWH hoRzHT6RVa6rInMJFI2OYu2zEYFCWDXjpr0669-13-23V77:4 4:[id number] [facility] [address] [place] [address] PATIENT NAME: ROSEMARY CHAPA ADMIT DATE: 07/17/20ACCOUNT NO: [id number] ROOM NO: [id number] AGE: 40 REPORT TYPE: OPERATIVE REPORT SEX: F ADMITTING PHYSICIAN: Rupert Russell MD ATTENDING PHYSICIAN: Rupert Russell MD OPERATION DATE: 07/19/2020 PREOPERATIVE DIAGNOSES:1. Left ureteral calculus.2. Bilateral renal calculus. POSTOPERATIVE DIAGNOSES:1. Left ureteral calculus.2. Bilateral renal calculus. PROCEDURES:1. Bilateral ureteroscopy.2. Laser lithotripsy.3. Basket extraction of stone fragments.4. Retrograde pyelogram with interpretation.5. Left ureteral stent placement. SURGEON: Roque Hogan MD CUTTING MACHINE OFFBEARER: ANESTHESIA: General. DRAIN PLACED: A 6 x 24 Black Beauty ureteral stent with retrieval string. ESTIMATED BLOOD LOSS: Minimal. FINDINGS:1. A 7-mm impacted left UVJ stone.2. No visible renal stones.3. Minimal left hydronephrosis, no right hydronephrosis. INDICATIONS FOR PROCEDURE: Rosemary Chapa is a 40-year-old female with a historyof urolithiasis. She has had a 2-week history of intermittent left flank painwhich became especially severe. She has had multiple visits to the EmergencyRoom, at her last visit a CT scan showed progression of her stone which was now7 mm at the left distal ureter with mild hydronephrosis. The report statedrenal stones, they were not characterized. I offered the patient ureteroscopyfor stone extraction as the patient has not been able to pass the stone withconservative measures and has been having ongoing symptoms for 2 weeks. I alsodiscussed ureteroscopic evaluation of the renal pelvis to clear out the entiretyof her stone burden. The patient stated understanding and wished to proceed. PATIENT NAME: ROSEMARY CHAPA PROCEDURE IN DETAIL: The patient was brought to the OR on 07/19/2020. She hadanesthesia inducted without any complication. She was placed into a dorsallithotomy position and the genitalia was prepped and draped in usual standardsterile manner. At this point, I inserted a 22-Polish rigid cystourethroscopeinto the bladder. I performed examination of bladder without any findings ofmasses, tumors, or lesions. I identified the left ureteral orifice in normalorthotopic position. I did see a pusher of the impacted left UVJstone. I attempted to pass a wire alongside this into the renal orifice andinto the renal pelvis but was unable to do so due to stone impaction. I nowadvanced a 7-Polish ureteroscope and navigated into the UVJ which pushed thestone back to the distal ureter. I performed laser lithotripsy to fragment thestone and extracted all significant stone fragments. The remainder was deemedto be dust. I now advanced a wire into the renal pelvis and then advanced up a11/13-Polish 28-cm access sheath. I positioned this to the proximal ureter. Ithen advanced a flexible ureteroscope and navigated this into the renal pelvis. There were some blood clots which initially limited visibility, ultimately I wasable to visualize the entirety of the upper, mid, and lower pole calices withoutany findings of any significant stones. I withdrew the scope visualizing theentirety of the ureter. There were no abrasions, lacerations, or tears. Iperformed a retrograde pyelogram and ureterogram which showed mildhydroureteronephrosis and placed a 6 x 24 Black Beauty ureteral stent on thisside. I now turned my attention to the opposing right side. I re-inserted thecystoscope and advanced a guidewire into the right renal pelvis. I advanced theureteroscope through the access sheath and into the renal pelvis. I performed asystematic evaluation of the kidney, including the upper, mid, and lower polecalices without any findings of stones. I performed a pyelogram which showed nohydronephrosis on this side. I withdrew the scope visualizing the entirety ofthe ureter, there were no abrasions, lacerations, or tears. I elected not toplace a stent on this side. The retrieval string from the left-sided stent wassecured to her pubis. This marked the completion of the procedure. The patienttolerated the procedure well. There were no complications. Dictated By: Roque Hogan MD WT: OP:L.ROBERT/EFREM/NTSDD: 07/19/2020 22:44:19DT: 07/19/2020 23:54:45Conf#: [id number]/DID#: [id number] Authenticated by Roque Hogan MD On 07/31/2020 08:51:47 AM at 0852 PATIENT NAME: ROSEMARY CHAPA cuiwdv7982-71-98K43:54:00L.JWL73028984-8421LCIkwj lable for patient xybpIHVSLJBXKHAVRF9454-57-06R87:52:12 [facility] 2020-07-19 13:57:00 [id number] ro0OKSDqgm+SA6rmZJoRBuc9ukAGp TGfdBjMf9Ip3ucwu5in566sYMoxN9nJw8r2952-33-60H28:5 7:00 [facility] ([facility])Post Anesthesia EvaluationREPORT#:[id number] REPORT STATUS: SignedDATE:07/19/20 TIME:1357 PATIENT: ROSEMARY CHAPA UNIT #: [id number]#: [id number] [address] AGE: 40 SEX: F ATTEND: [facility] Russell [facility] AUTHOR: Za Tatum MD * ALL edits or amendments must be made on the electronic/computer document * GeneralPost-op: post surgery rounds Post Anesthesia Evaluation Anes. changes from pre-op evalORM Surgeries: Surgery Date and Time: 07/19/2020 1200 Proposed Primary Procedure: GALDINO URETEROSCOPY W/LASER LITHOTRIPSY Anesthetic: general LMADate: 07/19/20Level of consciousness: patient awake, able to answer questions, participate in this eval.Vital signs:Last Documented: Result Date Time Pulse Ox 100 07/19 1354 B/P 109/56 07/19 1354 O2 Delivery Simple mask 07/19 135 O2 Flow Rate 7 07/19 1354 Temp 36.1 07/19 1354 Pulse 77 07/19 1354 Resp 19 07/19 1354 B/P Mean 97.4 07/19 0802 Cardiovascular: CV system stable, vital signs stableRespiratory/Airway: respiratory system stable, maintains without supportPain: adequately controlledHydration: adequateTemp status: greater than 96.8F, normothermicPresence of N/V: noAnesthesia complications: noOther changes requiring f/u: noneConclusions: no apparent anes. issues at 1358 RPT #: [id number] OF REPORT CLClinical rawt9580-20-22W05:57:00L.SMDU42899793-6031PYEkazh able for patient dqkiKWSZVNMUFZFHQS4154-15-93T71:58:24 [facility] 2020-07-19 13:51:00 [id number] bp8ditcnoaKzF+ocTGAZG4zLl+TIX Ve8QOudBy6nh/SJaEJ/+491QV+3EYDuDTs2897-30-31N45:5 1:00 [facility] ([facility]ospital[facility] Progress NoteREPORT#:[id number] REPORT STATUS: SignedDATE:07/19/20 TIME:1351 PATIENT: ROSEMARY CHAPA UNIT #: [id number]#: [id number] [facility] AGE: 40 SEX: F ATTEND: Rupert Russell [facility] AUTHOR: Catherine Dempsey MD * ALL edits or amendments must be made on the electronic/computer document * SubjectiveChief Complaint:- Patient has no complaints, will get ureterscopy and stone removal. Review of SystemsConstitutional:Denies: chills, fever. Skin:Denies: itching. Eyes:Denies: redness, discharge. ENT:Denies: earache. Respiratory:Denies: non productive cough, SOB, wheezing. Cardiovascular:Denies: chest pain, palpitations. GI:Denies: abdominal pain, nausea, vomiting. :Denies: flank pain. Heme:Denies: adenopathy. Objective GeneralVS/I O:Vital Signs: Date Time Temp Pulse Resp B/P B/P Pulse O2 O2 Flow FiO2 Mean Ox Delivery Rate 07/19 0802 36.6 70 20 126/83 97.4 98 07/19 0601 36.8 77 18 128/79 95.2 93 07/18 2336 36.7 84 135/83 100.3 94 07/18 2010 36.9 82 136/77 96.3 98 07/18 1506 36.8 97 18 118/72 87.6 24 hour I O ending at 0700: 07/19 0700 07/18 1900 Intake Total 1250.00 Output Total Balance 1250.00 Intake, IV 1250.00 Number Voids 6 PATIENT WEIGHT: Weight (lb): 166Weight (oz): 5.6Weight (kg): 75.455 Medications:Active Meds + DC'd Last 24 HrsHydrocodone Bitart/Acetaminophen 1 TAB PACU ONCE PRN PO Hydrocodone Bitart/Acetaminophen 1 TAB PACU ONCE PRN PO Hydromorphone HCl 0.5 MG PACU Q10MIN PRN PRN IV Insulin Human Lispro 0 PACU ONCE PRN SUBQ Labetalol HCl 5 MG PACU Q10MIN PRN PRN IV Meperidine HCl 12.5 MG PACU ONCE PRN IV Ondansetron HCl 4 MG PACU ONCE PRN IV Promethazine HCl 25 MG PACU ONCE PRN IM Ketorolac Tromethamine 0 .STK-MED ONE .ROUTE (DC) Fentanyl Citrate 0 .STK-MED ONE .ROUTE (DC) Midazolam HCl 0 .STK-MED ONE .ROUTE (DC) Propofol 20 ML .STK-MED ONE IV (DC) Dexamethasone Sodium Phosphate 0 .STK-MED ONE .ROUTE (DC) Lidocaine HCl 0 .STK-MED ONE .ROUTE (DC) Ondansetron HCl 0 .STK-MED ONE .ROUTE (DC) Iopamidol 0 .STK-MED ONE .ROUTE (DC) Ceftriaxone Sodium 1,000 MG Q24H IV Sterile Water 10 MLKetorolac Tromethamine 30 MG Q6H PRN PRN IV (DC) Acetaminophen 650 MG Q4H PRN PRN PO Docusate Sodium 100 MG BID PRN PRN PO Morphine Sulfate 4 MG Q4H PRN PRN IV Ondansetron HCl 4 MG Q4H PRN PRN IV Sodium Chloride 1,000 ML .Q8H IV Nutrition assessment:The data set between the solid lines has been imported from the dietitian's assessment. Any exceptions have been noted under Provider comments. BMI Calculated: 28.6 Nutrition related diagnosis: Nutrition diagnosis details: Nutrition problem: Nutrition etiology: Nutrition signs and symptoms: Nutrition prescription: Dietitian name: Assessment completed: Provider comments on imported dietitian assessment: Physical ExamGeneral appearance: alert, awake, orientedHead/Eyes: atraumatic, normocephalicENT: moist mucosal membranes, normal noseNeck: supple/no meningismus, no JVDCardiovascular: normal capillary refill, normal heart sounds, regular rate rhythmRespiratory: aerating well, clear to auscultationAbdomen: soft, no distentionGenitourinary: flank painExtremities: moves all, no edemaMusculoskeletal: normal inspectionNeuro/EXECUTIVE KITCHEN MANAGER: alert, normal speechSkin: dry, no rashLymphatics: no lymphadenopathyPsychiatry: anxious ResultsFindings/Data:Laboratory Tests 07/19 1113 Serology SARS-CoV-2 Ag (Rapid) (Negative) NEGATIVE Laboratory Tests 07/19 1113 Urines Urine HCG, Qual (NEGATIVE) NEGATIVE Diagnosis, Assessment PlanProblem List/A P: 1. Calculus of distal left ureter - CT at ED showed 7mm left UVJ stone with mild hydronephrosis - continue IVF hydration, pain and nausea control - consult Urology - place NPO after midnight for possible urologic procedure Free Text DxA P NotesFree text DxA P notes:DVT prophylaxis with SCDs 1Pain controlled wellUrology consultedIVF Start on Rocephin keep n.p.o. for now for possible cystoscopyAwaiting further recommendations from urology 07/19/2019:- No acute events. stone didn't pass. - appreciate urology help. Patient will have stone removal today. - possible discharge later today or tomorrow monring. - DVT prophylaxis. at 1354 RPT #: [id number] OF REPORT PRProgress Bkki5212-37-23F11:51:00L.[id number] able for patient oiflQWDRSKKAKFEKHH1578-13-73J08:54:43 [facility] 2020-07-19 13:50:00 [id number] Z5wEuLlKTrmIAx2CpKP2kOmgvO0k4 vgybMYueu+fPlKsavJ+5AlOT9EwU+DiQ5v1335-14-88D05:5 0:00 [facility] ([facility])Brief Op NoteREPORT#:[id number] REPORT STATUS: SignedDATE:07/19/20 TIME:1350 PATIENT: ROSEMARY CHAPA UNIT #: [id number]#: [id number] [facility] AGE: 40 SEX: F ATTEND: Rupert Russell MDA AUTHOR: Roque Hogan MD * ALL edits or amendments must be made on the electronic/computer document * Op/Inv Proc Note - BriefPre-procedure diagnosis:left distal ureteral calculi, renal calculiPost-procedure diagnosis: same as pre procedure dxProcedures performed:bilateral ureteroscopy, laser lithotripsy, left ureteral stent placementPrimary Surgeon:Sariaht(s): noneFindings:7mm distal left calculi, no renal calculi, mild left hydronephrosisComplications: noneEstimated blood loss in ml's: noneSpecimens removed/altered: none (stone)Drain(s): 6x24bb with string, left at 1351 RPT #: [id number] OF REPORT OPOperative wpdyys6143-53-12S10:50:00L.JZWC26001192-4707REDgp ilable for patient qtttCJPHJHMEUTOHSI6473-32-68J74:52:03 [facility] 2020-07-18 11:04:00 [id number] 3V2oCrgxStyQouQg+xBJedHiE+0E5 q24oNpWzHPg2zVlYBFKJUhElG6wUXolFk85107-67-66S02:0 4:[id number] [address] PATIENT NAME: ROSEMARY CHAPA ADMIT DATE: 07/17/20ACCOUNT NO: [id number] ROOM NO: [place] [address] AGE: 40 REPORT TYPE: CONSULTATION SEX: F ADMITTING PHYSICIAN: Rupert Russell MD ATTENDING PHYSICIAN: Rupert Russell MD CONSULTATION DATE: 07/18/2020 CONSULTING PHYSICIAN: Roque Hogan MD CONSULTING PHYSICIAN: Roque Hogan MD REQUESTING PHYSICIAN: Rupert Russell MD REASON FOR CONSULTATION REQUEST: Left ureteral calculus. HISTORY OF PRESENT ILLNESS: Ms. Rosemary Chapa is a 40-year-old female who overthe last several weeks has been having left-sided flank pain, she has hadmultiple ER visits and has undergone a total of 3 CT scan with findings of aleft ureteral calculus. Her last CT scan was performed last night when sheagain has an onset of left-sided flank pain, severe. The scan showed that shehad a 7-mm stone at the left UVJ, bilateral renal stones. There was mildhydronephrosis. There is no accompanying signs or symptoms suggestive of anaccompanying infection. The patient was transferred here for urologicevaluation. The patient states that she had pain overnight, it is improved thismorning. She is not having any nausea or vomiting. She reports a similarepisode about a year ago where she was hospitalized for 4 days prior to passingher stone, which she states was about 9 mm. REVIEW OF SYMPTOMS: No fevers, no chills. No nausea, no vomiting. No chestpain, no shortness of breath. Positive for dysuria. Positive for urgency,frequency, and no gross hematuria. Otherwise, negative 10-point review ofsymptoms. PAST MEDICAL HISTORY: Urolithiasis. PAST SURGICAL HISTORY: None. SOCIAL HISTORY: Negative x3. FAMILY HISTORY: Reviewed and noncontributory. PHYSICAL EXAMINATION:VITAL SIGNS: T-max 98.2, pulse is 101, blood pressure 148/78.GENERAL: The patient in no acute distress, alert and oriented.HEENT: Atraumatic, normocephalic. EOMI.NECK: Supple. Trachea midline.LUNGS: Normal respiratory effort, nonlabored breathing. PATIENT NAME: ROSEMARY CHAPA ABDOMEN: Soft, nontender, and nondistended. No CVA tenderness.EXTREMITIES: No clubbing, cyanosis, or edema. PERTINENT LABORATORY DATA: Her creatinine 0.7, BUN of 11. White count of 9.7,hemoglobin count of 32.1. Urinalysis shows positive for rbc's, trace wbc's. PERTINENT IMAGING: Left side CT scan shows a 7 mm left UVJ stone with mildhydronephrosis. ASSESSMENT AND PLAN: The patient with an obstructing left ureteral calculus;however, given its position, history of passing larger stones, the patient islikely to pass the stone on her own. I recommend that we keep her hospitalizedtoday with aggressive hydration, straining of her urine. I discussed that ifthe patient does not pass the stone by tomorrow, I will proceed with stoneextraction, possible ureteroscopy to address the other nonobstructing stones. We will continue to follow along with you. Dictated By: Roque Hogan MD WT: CON:WOOD/EFREM/NTSDD: 07/18/2020 11:04:25DT: 07/18/2020 11:56:22Conf#: [id number]/DID#: [id number] Authenticated by Roque Hogan MD On 07/31/2020 08:51:36 AM at 0851 PATIENT NAME: ROSEMARY CHAPA :56:00L.DC [id number] for patient gxorJIVRECGRBKNUPF7666-57-97X59:52:02 [facility] 2020-07-18 10:26:00 [id number] wJ24KX/AXhe5aQZHLOBD1IToH1APX C6sKo+Iq7sYq79sNLma21B/MbYy3uXC2Dh4311-70-91T20:2 6:00 [facility] Progress NoteREPORT#:[id number] REPORT STATUS: SignedDATE:07/18/20 TIME:1026 PATIENT: ROSEMARY CHAPA UNIT #: [id number]#: [id number] [address] AGE: 40 SEX: F ATTEND: Rupert Russell MDADM AUTHOR: Rupert Russell MD * ALL edits or amendments must be made on the electronic/computer document * SubjectiveChief Complaint:Pain controlled wellno fever or chills still has dysuria Objective GeneralVS/I O:Vital Signs: Date Time Temp Pulse Resp B/P B/P Pulse O2 O2 Flow FiO2 Mean Ox Delivery Rate 07/18 0424 97.9 84 20 101/65 76.7 89 07/18 0019 98.1 93 20 113/74 87.2 98 07/17 1901 98.2 101 18 148/78 101 100 24 hour I O ending at 0700: 07/18 0700 07/17 1900 Intake Total 100 Output Total Balance 100 Intake, Oral 100 Patient 166 lb Weight Weight Stated/Reported Measurement Method PATIENT WEIGHT: Weight (lb): 166Weight (oz): 5.6Weight (kg): 75.455 Medications:Active Meds + DC'd Last 24 HrsKetorolac Tromethamine 30 MG Q6H PRN PRN IV Acetaminophen 650 MG Q4H PRN PRN PO Docusate Sodium 100 MG BID PRN PRN PO Hydrocodone Bitart/Acetaminophen 1 TAB Q4H PRN PRN PO (DC) Morphine Sulfate 4 MG Q4H PRN PRN IV Ondansetron HCl 4 MG Q4H PRN PRN IV Sodium Chloride 1,000 ML .Q8H IV Physical ExamGeneral appearance: alert, awakeHead/Eyes: atraumatic, normocephalicENT: moist mucosal membranes, normal noseNeck: supple/no meningismus, no JVDCardiovascular: normal capillary refill, normal heart sounds, regular rate rhythmRespiratory: aerating well, clear to auscultationAbdomen: tenderness (L CVA), soft, no distentionGenitourinary: flank painExtremities: moves all, no edemaMusculoskeletal: normal inspectionNeuro/EXECUTIVE KITCHEN MANAGER: alert, normal speechSkin: dry, no rashLymphatics: no lymphadenopathyPsychiatry: anxious ResultsFindings/Data:Laboratory Tests 07/17/202199:[Embedded Image Not Available] 07/17/202044:[Embedded Image Not Available]Laboratory Tests 07/17 2199 Chemistry Sodium (134 - 147 mmol/L) 141 Potassium (3.4 - 5.0 mmol/L) 3.6 Chloride (100 - 108 mmol/L) 108 Carbon Dioxide (21 - 32 mmol/L) 30 Anion Gap (4.0 - 15.0 GAP calc) 3.0 L BUN (7 - 18 MG/DL) 11 Creatinine (0.6 - 1.0 MG/DL) 0.7 Glomerular Filtr Rate (>60 estGFR) >=60 max estimate Glucose (70 - 110 MG/DL) 94 Calcium (8.5 - 10.1 MG/DL) 8.6 Laboratory Tests 07/17 2044 Hematology WBC (3.5 - 11.0 K/mm3) 9.7 RBC (4.70 - 6.10 M/mm3) 3.72 L Hgb (10.4 - 14.9 G/DL) 10.5 Hct (31.5 - 44.1 %) 32.1 MCV (84.5 - 98.6 Fl) 86.3 MCH (27.0 - 34.2 pg) 28.2 MCHC (31.5 - 34.0 G/DL) 32.7 RDW (11.5 - 14.5 SD) 14.6 H Plt Count (150 - 450 K/mm3) 526 H MPV (7.0 - 10.5 fL) 11.30 H Neut % (Auto) (40 - 76 %) 64.9 Lymph % (Auto) (20.5 - 51.1 %) 28.7 Glenn % (Auto) (1.7 - 9.3 %) 4.9 Eos % (Auto) (0.0 - 6.0 %) 0.7 Baso % (Auto) (0.0 - 2.0 %) 0.6 Neut # (Auto) (1.8 - 7.6 K/mm3) 6.3 Lymph # (Auto) (0.6 - 3.2 K/mm3) 2.8 Glenn # (Auto) (0.3 - 1.1 K/mm3) 0.5 Eos # (Auto) (0.0 - 0.4 K/mm3) 0.1 Baso # (Auto) (0.0 - 0.1 K/mm3) 0.1 Abs Immat Gran (auto) (0.00 - 0.03 x10 3/uL) 0.02 Add Manual Diff (CRITERIA DIFF/SCN) NO Immature Gran % (0.0 - 5.0 %) 0.2 Nucleated RBC % (0.0 - 1.0 /100WBC%) 0.0 Laboratory Tests 07/17 2200 Urines Urine Color (YEL/STRAW discript) YELLOW Urine Appearance (CLEAR discript) CLEAR Urine pH (5.0 - 7.0 pH UNITS) 6.0 Ur Specific Dazey (1.005 - 1.030 SG) >=1.030 H Urine Protein (NEG mg/dL) NEGATIVE Urine Glucose (UA) (NEG mg/dL) NEGATIVE Urine Ketones (NEG mg/dL) TRACE Urine Blood (NEG mg/DL) 2+ H Urine Nitrite (NEG SCREEN) NEGATIVE Urine Bilirubin (NEG mg/dL) NEGATIVE Urine Urobilinogen (<2.0 mg/dL) 0.2 Ur Leukocyte Esterase (NEGATIVE Leuk/mcL) NEGATIVE Urine RBC (0 - 3 #RBC/HPF) 10-20 H Urine WBC (0 - 3 #WBC/HPF) 3-5 H Ur Squamous Epith Cells (NONE /HPF) TRACE Urine Bacteria (NONE - TRACE /HPF) TRACE Urine Culture Screen (Culture CHK Criteria) NO, WBC<10 Diagnosis, Assessment PlanProblem List/A P: 1. Calculus of distal left ureter - CT at [facility] showed 7mm left UVJ stone with mild hydronephrosis - continue IVF hydration, pain and nausea control - consult Urology - place NPO after midnight for possible urologic procedure Free Text DxA P NotesFree text DxA P notes:DVT prophylaxis with SCDs 1Pain controlled wellUrology consultedIVF Start on Rocephin keep n.p.o. for now for possible cystoscopyAwaiting further recommendations from urology at 1047 RPT #: [id number] OF REPORT PRProgress Kkcq6908-09-68X14:26:00L.SIIG46761079-4327QBXorfh able for patient ignzFVLJANFUDDADYY8324-93-23X96:47:15 [facility] 2020-07-17 19:13:00 [id number] uItO+FFncsKCSLClaGpW8FEYo842K bxbqxEjvP9ws+H5fv6U+cF0+saEgjQMoyb8794-64-01S31:1 3:00 [facility] ([facility])Hospitalist History PhysicalREPORT#:[id number] REPORT STATUS: SignedDATE:07/17/20 TIME:1912 PATIENT: ROSEMARY CHAPA UNIT #: [id number]#: [id number] [address] AGE: 40 SEX: F [facility]END[facility] AUTHOR: Lucila Rubalcava * ALL edits or amendments must be made on the electronic/computer document * History of Present Illness HPIChief complaint:left flank painHPI:40 y/o female with hx of kidney stones was transferred from [facility] for Urology consult for left UVJ stone. Pt states she has been having left flank pain for the past 2 weeks. She went to the ER and was dx with left kidney stonesbut states the pain worsened today with nausea and vomiting. Also with hematuria. Denies any fevers/chills. [facility] records reviewed- labs were unremarkable, CBC without leukocytosis, CMP WNL, UA with blood but no wbcs. COVID-[address] showed 7mm left UVJ stone with mild hydronephrosis. Pt was transferred here for Urology consult. History Social HistorySmoking status for patients 13 years old or older: Never Smoker Medication/Allergy-Vaccine HxAllergies:Coded Allergies:No Known Allergies (07/17/20) Review of SystemsConstitutional:Denies: chills, fever. Skin:Denies: bruising, rash. Eyes:Denies: visual loss/blurred, eye pain. ENT:Denies: nasal congestion, sore throat. Respiratory:Denies: productive cough (sputum), SOB. Cardiovascular:Denies: chest pain, palpitations. GI:Reports: nausea, vomiting. Denies: abdominal pain. :Reports: flank pain, frequency, hematuria. Denies: dysuria. Musculoskeletal:Denies: extremity pain, extremity swelling. Neuro:Denies: dizziness, headache, syncope. Physical ExamVS/I O:Vital Signs Date Temp Pulse Resp B/P B/P Mean Pulse Ox FiO2 07/17 98.2 101 18 148/78 101 100 Last Documented: Result Date Time Pulse Ox 100 07/17 1900 B/P 148/78 07/17 1900 B/P Mean 101 07/17 1900 Temp 98.2 07/17 190 Pulse 101 07/17 190 Resp 18 07/17 1900 Patient Weight and BMI Weight (kg): 75.455 BMI: 28.6 General appearance: alert, awake, no acute distressHead/Eyes: atraumatic, normocephalicENT: moist mucosal membranes, normal noseNeck: supple/no meningismus, no JVDCardiovascular: normal capillary refill, normal heart sounds, regular rate rhythmRespiratory: clear to auscultation, symmetric expansion, no distressAbdomen: tenderness (L CVA), soft, no distentionExtremities: moves all, no edemaNeuro/EXECUTIVE KITCHEN MANAGER: alert, normal speech Diagnosis, Assessment PlanProblem List/A P: 1. Calculus of distal left ureter - CT at [facility] showed 7mm left UVJ stone with mild hydronephrosis - continue IVF hydration, pain and nausea control - consult Urology - place NPO after midnight for possible urologic procedure Free Text A P:DVT prophylaxis with SCDs at 2027 RPT #: [id number] OF REPORT HPHistory and physical jalpottdtxm6147-23-50N20:13:00L.[id number] AVAvailable for patient dcsbLKXGSGTMTTMCEA6706-76-32K34:27:21 [facility] 2020-07-17 19:13:00 [id number] jOUodCEn/cTORNvg+ada2Irzl8PzB iPTi+jxA0OMu7LQRceP2DEbem/Ohs+EwSm6891-10-81N88:1 3:00 [facility] History PhysicalREPORT#:[id number] REPORT STATUS: SignedDATE:07/17/20 TIME:1912 PATIENT: ROSEMARY CHAPA UNIT #: [id number]#: [id number] [address]P: [address] AGE: 40 SEX: F ATTEND: Rupert Russell MDA AUTHOR: Lucila Rubalcava * ALL edits or amendments must be made on the electronic/computer document * Lucila Rubalcava 07/17/201912:History of Present Illness HPIChief complaint:left flank painHPI:40 y/o female with hx of kidney stones was transferred from [facility] for Urology consult for left UVJ stone. Pt states she has been having left flank pain for the past 2 weeks. She went to the ER and was dx with left kidney stonesbut states the pain worsened today with nausea and vomiting. Also with hematuria. Denies any fevers/chills. [facility] records reviewed- labs were unremarkable, CBC without leukocytosis, CMP WNL, UA with blood but no wbcs. COVID-[address] showed 7mm left UVJ stone with mild hydronephrosis. Pt was transferred here for Urology consult. History Social HistorySmoking status for patients 13 years old or older: Never Smoker Medication/Allergy-Vaccine HxAllergies:Coded Allergies:No Known Allergies (07/17/20) Review of SystemsConstitutional:Denies: chills, fever. Skin:Denies: bruising, rash. Eyes:Denies: visual loss/blurred, eye pain. ENT:Denies: nasal congestion, sore throat. Respiratory:Denies: productive cough (sputum), SOB. Cardiovascular:Denies: chest pain, palpitations. GI:Reports: nausea, vomiting. Denies: abdominal pain. :Reports: flank pain, frequency, hematuria. Denies: dysuria. Musculoskeletal:Denies: extremity pain, extremity swelling. Neuro:Denies: dizziness, headache, syncope. Physical ExamVS/I O:Vital Signs Date Temp Pulse Resp B/P B/P Mean Pulse Ox FiO2 07/17 98.2 101 18 148/78 101 100 Last Documented: Result Date Time Pulse Ox 100 07/17 190 B/P 148/78 07/17 1900 B/P Mean 101 07/17 1901 Temp 98.2 07/17 190 Pulse 101 07/17 1901 Resp 18 07/17 190 Patient Weight and BMI Weight (kg): 75.455 BMI: 28.6 General appearance: alert, awake, no acute distressHead/Eyes: atraumatic, normocephalicENT: moist mucosal membranes, normal noseNeck: supple/no meningismus, no JVDCardiovascular: normal capillary refill, normal heart sounds, regular rate rhythmRespiratory: clear to auscultation, symmetric expansion, no distressAbdomen: tenderness (L CVA), soft, no distentionExtremities: moves all, no edemaNeuro/EXECUTIVE KITCHEN MANAGER: alert, normal speech Diagnosis, Assessment PlanProblem List/A P: 1. Calculus of distal left ureter - CT at [facility] showed 7mm left UVJ stone with mild hydronephrosis - continue IVF hydration, pain and nausea control - consult Urology - place NPO after midnight for possible urologic procedure Free Text A P:DVT prophylaxis with SCDs at 2027 at 1026 RPT #: [id number] OF REPORT HPHistory and physical tickaxyzrov7056-94-06D32:13:00L.[id number] AVAvailable for patient cvxiRUKAZQGIZQVVIG9538-96-63D27:26:14 HCAPM
[2023-09-13 17:16] LABS: Absolute Eosinophils 0.1 K/uL (0-0.5); Absolute Lymphocytes (CBC) 1.3 K/uL (0.7-4.9); Absolute Monocytes 0.6 K/uL (0.1-1.3); Absolute Neutrophil 4.6 K/uL (1.8-8.0); Basophils % 0.6 % (0-1.3); Eosinophils % 0.9 % (0-4.4); Hematocrit 35.5 % (36.0-45.0); Hemoglobin 11.8 g/dL (12.0-15.0); Lymphocytes % 20.1 % (15.3-44.8); MCH 29.5 pg (27.0-35.0); MCHC 33.2 g/dL (32.0-36.0); MCV 88.9 fL (80-100); MPV 8.4 fL (7.6-11.3); Monocytes % 9.5 % (3.3-12.3); Neutrophils % 68.9 % (41.7-73.7); Platelets 343 thou/uL (152-406); Red Cell Distribution Width 15.1 % (12.1-15.2)
[2023-09-13 17:31] LABS: Albumin 3.2 g/dL (3.4-5.0); Albumin/Globulin Ratio 0.7 (1.1-1.8); Anion Gap 7.8 mEq/L (5.0-15.0); Bilirubin Total 0.3 mg/dL (0.2-1.0); Globulin 4.5 g/dL (2.3-3.5); Potassium 3.8 mEq/L (3.5-5.1); Protein, Total 7.7 g/dL (6.4-8.2)
[2023-09-13 18:32] LABS: Specific Gravity 1.019 (1.005-1.030)
[2023-09-13 18:33] LABS: Specific Gravity 1.019 (1.005-1.030); Urine Bacteria <20 /HPF (<20); Urine Bilirubin NEGATIVE (Negative); Urine Blood Negative (Negative); Urine Clarity Clear (Clear); Urine Color Colorless (Yellow); Urine Glucose NEGATIVE (Negative); Urine Protein NEGATIVE (Negative); Urine RBC <5 /HPF (None Seen); Urine Urobilinogen Normal (Normal); Urine pH 6.5 (5.0-7.0)
--- NOTE | 2023-09-13 19:03 | RAD REPORT ---
EXAM DESCRIPTION: CT - Abdomen Pelvis W Contrast - 09/13/2023 6:10 pm CLINICAL HISTORY: ABD PAIN COMPARISON: Abdomen Pelvis W Contrast dated 03/25/2022 TECHNIQUE: Thin cut axial CT imaging of the abdomen and pelvis was performed following intravenous a dministration of iodinated contrast. Multiplanar reformats were generated and reviewed. All CT scans are performed using dose optimization technique as appropriate and may include automated exposure control or mA/KV adjustment according to patient size. FINDINGS: No suspicious findings in the lung bases. The liver, spleen, adrenal glands, and pancreas show no suspicious findings. Gallbladder and biliary tree are also without suspicious finding. Symmetric renal function is seen with no hydronephrosis or suspicious renal mass. Nonobstructing left renal calculi, including a 6 mm calculus at the left renal pelvis, as well as layering calculi at th e lower pole, which may be within a caliceal diverticulum or a cyst, not appear abundant than on the prior exam. No dilated bowel loops or bowel wall thickening. No free air, free fluid or inflammatory stranding. N o hernia, mass or bulky lymphadenopathy. The urinary bladder is without significant finding. No suspicious bony findings. IMPRESSION: Nonobstructing left renal calculi which may be more abundant than on the prior exam. The se include a 6 mm calculus at the lower aspect of the pelvis and layering calculi within a lower pole cyst versus caliceal diverticulum. No hydroureteronephrosis. No other acute intra- abdominal process.
--- NOTE | 2023-09-13 19:39 | EDPHYS ---
Physician Documentation [facility] Name: Margareth Chapa Age: 43 yrs Sex: Female : 1980 Arrival Date: 09/13/2023 Time: 15:54 Bed DX4 Private MD: ED Physician Hector Landry HPI: 09/12 17:10 This 43 yrs old Female presents to ER via Ambulatory with complaints of rt Vomiting. 17:10 Patient presents to the ED with about 2 days of nausea, vomiting, upper abdominal rt bloating with epigastric pain. Patient states that this pain is not consistent with prior episodes of ureteral colic. Denies other acute complaints at this time, symptoms are moderate in severity, aching nature, nonradiating, no other aggravating or elevating factors.. Historical: - Allergies: 16:03 NKA; ll1 - PMHx: 16:03 High Cholesterol; Kidney stones; ll1 - PSHx: 16:03 Appendectomy; bunion; ll1 - Immunization history:: Adult Immunizations up to date. - Social history:: Smoking status: Patient denies any tobacco usage or history of. - Family history:: not pertinent. ROS: 17:10 Constitutional: Negative for fever, chills, and weight loss, Cardiovascular: Negative rt for chest pain, palpitations, and edema, Respiratory: Negative for shortness of breath, cough, wheezing, and pleuritic chest pain, MS/Extremity: Negative for injury and deformity, Skin: Negative for injury, rash, and discoloration, Neuro: Negative for headache, weakness, numbness, tingling, and seizure, Psych: Negative for depression, anxiety, suicide ideation, homicidal ideation, and hallucinations, 17:10 Abdomen/GI: Positive for abdominal pain, nausea and vomiting, Exam: 17:10 Constitutional: This is a well developed, well nourished patient who is awake, alert, rt and in no acute distress. Head/Face: Normocephalic, atraumatic. Chest/axilla: Normal chest wall appearance and motion. Nontender with no deformity. No lesions are appreciated. Cardiovascular: Regular rate and rhythm with a normal S1 and S2. No gallops, murmurs, or rubs. Normal PMI, no JVD. No pulse deficits. Respiratory: Lungs have equal breath sounds bilaterally, clear to auscultation and percussion. No rales, rhonchi or wheezes noted. No increased work of breathing, no retractions or nasal flaring. Skin: Warm, dry with normal turgor. Normal color with no rashes, no lesions, and no evidence of cellulitis. MS/ Extremity: Pulses equal, no cyanosis. Neurovascular intact. Full, normal range of motion. Neuro: Awake and alert, GCS 15, oriented to person, place, time, and situation. Cranial nerves II-XII grossly intact. Motor strength 5/5 in all extremities. Sensory grossly intact. Cerebellar exam normal. Normal gait. Psych: Awake, alert, with orientation to person, place and time. Behavior, mood, and affect are within normal limits. 17:10 Abdomen/GI: Tenderness to the epigastrium without rebound, guarding, distention, Vital Signs: 16:02 BP 157 / 89; Pulse 100; Resp 18; Temp 97.9; Pulse Ox 100% ; ll1 19:56 BP 125 / 75; Pulse 90; Resp 17; Temp 97.3; Pulse Ox 99% on R/A; Weight 79.38 kg; Height bc6 5 ft. 4 in. ; 19:56 Body Mass Index 30.04 (79.38 kg, 162.56 cm) bc6 MDM: 16:00 Patient medically screened. rt 20:00 Differential diagnosis: Pancreatitis, gastritis, cholecystitis. Data reviewed: vital rt signs, nurses notes. Consideration of Admission/Observation Escalation of care including admission/observation considered. Independent interpretation of the following test(s) in the Emergency Department CT Scan: My interpretation is No bowel obstruction some interpretation of CT scan images. Counseling: I had a detailed discussion with the patient and/or guardian regarding the historical points, exam findings, and any diagnostic results supporting the discharge/admit diagnosis, lab results, radiology results, the need for outpatient follow up, to return to the emergency department if symptoms worsen or persist or if there are any questions or concerns that arise at home. Response to treatment: the patient's symptoms have markedly improved after treatment. 09/12 16:08 Order name: CBC with Diff; Complete Time: 17:49 rt 09/12 16:08 Order name: CMP; Complete Time: 17:49 rt 09/12 16:08 Order name: Lipase; Complete Time: 17:49 rt 09/12 16:08 Order name: Test, Urine; Complete Time: 18:38 rt 09/12 16:08 Order name: Urinalysis w/ reflexes; Complete Time: 18:38 rt 09/12 16:08 Order name: CT Abd/Pelvis - IV Contrast Only; Complete Time: 19:10 rt 09/12 16:08 Order name: IV Saline Lock; Complete Time: 17:01 rt 09/12 16:08 Order name: Labs collected and sent; Complete Time: 17:01 rt Administered Medications: 17:14 Drug: NS 0.9% IV 1000 ml IV at 1 bolus Per protocol; 1000 mL bolus Route: IV; Rate: 1 ap3 bolus; Site: right antecubital; 18:47 Follow up: IV Status: Completed infusion; IV Intake: 1000ml ap3 17:14 Drug: Famotidine IVP 20 mg IVP once; dilute with 10 mL 0.9% NaCl; give over 2 minutes ap3 Route: IVP; Site: right antecubital; 18:47 Follow up: Response: No adverse reaction ap3 17:14 Drug: Ondansetron IVP 4 mg IVP once; over 2 minutes Route: IVP; Site: right antecubital;ap3 18:47 Follow up: Response: No adverse reaction ap3 17:56 Drug: morphine IVP or IV 4 mg IVP once over 4 mins Route: IVP; Infused Over: 4 mins; ap3 Site: right antecubital; 18:47 Follow up: Response: No adverse reaction; Pain is decreased ap3 Disposition Summary: 09/13/23 19:39 Discharge Ordered Notes: Location: Home rt Problem: new rt Symptoms: have improved rt Condition: Stable rt Diagnosis - Acute gastritis rt Followup: rt - With: Private Physician - When: 5 - 6 days - Reason: Discharge Instructions: - Discharge Summary Sheet rt - Gastritis, Adult rt Forms: - Medication Reconciliation Form rt - Thank You Letter rt - Antibiotic Education rt - Prescription Opioid Use rt - Patient Portal Instructions rt - Leadership Thank You Letter rt Prescriptions: - ondansetron 4 mg Oral Tablet,disintegrating - take 1 tablet ORAL route every 6 hours; 30 tablet; Refills: 0, Product rt Selection Permitted - Protonix 40 mg Oral Tablet - take 1 tablet ORAL route once daily; 30 tablet; Refills: 0, Product Selection rt Permitted Signatures: Dispatcher [employer] Jenny Sahu RN RN ap3 Yanet Huber RN RN ll1 Hector Landry MD MD rt
--- NOTE | 2023-09-13 19:39 | ER ---
Nurse's Notes [facility] Name: Margareth Chapa Age: 43 yrs Sex: Female : 1980 Arrival Date: 09/13/2023 Time: 15:54 Bed DX4 Private MD: Diagnosis: Acute gastritis Presentation: 09/12 16:01 Chief complaint: Patient states: Abdominal pain, bloating, N/V since Monday. ll1 Congestion, GOSS, slight cough developed since. Coronavirus screen: Client denies travel out of the [place] in the last 14 days. congestion, cough unrelated to allergies, fatigue, nausea, vomiting. 16:01 Method Of Arrival: Ambulatory ll1 16:02 Coronavirus screen: Client presents with at least one sign or symptom that may indicate ll1 coronavirus-19. Standard/surgical mask placed on the client. Ebola Screen: Patient denies travel to an Ebola-affected area in the 21 days before illness onset. Initial Sepsis Screen: Does the patient meet any 2 criteria? HR > 90 bpm. No. Patient's initial sepsis screen is negative. Does the patient have a suspected source of infection? No. Patient's initial sepsis screen is negative. Risk Assessment: Do you want to hurt yourself or someone else? Patient reports no desire to harm self or others. Onset of symptoms was September 10, 2023. 16:02 Acuity: AURELIO 3 ll1 Triage Assessment: 16:04 General: Appears uncomfortable, Behavior is calm, cooperative, appropriate for age. ll1 Pain: Complains of pain in abdomen Quality of pain is described as aching, crampy. EENT: Reports nasal congestion. Neuro: Reports headache. Respiratory: Reports cough that is. GI: Reports upper abdominal pain, bloating, nausea, vomiting. Historical: - Allergies: 16:03 NKA; ll1 - PMHx: 16:03 High Cholesterol; Kidney stones; ll1 - PSHx: 16:03 Appendectomy; bunion; ll1 - Immunization history:: Adult Immunizations up to date. - Social history:: Smoking status: Patient denies any tobacco usage or history of. - Family history:: not pertinent. Screenin:45 [facility] ED Fall Risk Assessment (Adult) History of falling in the last 3 months, jb4 including since admission No falls in past 3 months (0 pts) Confusion or Disorientation No (0 pts). Abuse screen: Denies threats or abuse. Nutritional screening: No deficits noted. Tuberculosis screening: No symptoms or risk factors identified. Assessment: 18:46 Reassessment: Patient and/or family updated on plan of care and expected duration. Pain ap3 level reassessed. Patient is alert, oriented x 3, equal unlabored respirations, skin warm/dry/pink. patient reclined in the chair, warm blanket provided. 19:45 General: Appears in no apparent distress. comfortable, Behavior is calm, cooperative, jb4 appropriate for age. Pain: Denies pain. Neuro: Level of Consciousness is awake, alert, obeys commands, Oriented to person, place, time, situation. Neuro: Level of Consciousness is awake, alert, obeys commands, Oriented to person, place, time, situation. Cardiovascular: Patient's skin is warm and dry. Respiratory: Airway is patent Respiratory effort is even, unlabored, Respiratory pattern is regular, symmetrical. GI: Abdomen is flat, non-distended. : No signs and/or symptoms were reported regarding the genitourinary system. EENT: No signs and/or symptoms were reported regarding the EENT system. Derm: Skin is intact, Skin is pink, warm \T\ dry. 19:45 Musculoskeletal: Circulation, motion, and sensation intact. Range of motion: intact in jb4 all extremities. Vital Signs: 16:02 BP 157 / 89; Pulse 100; Resp 18; Temp 97.9; Pulse Ox 100% ; ll1 19:56 BP 125 / 75; Pulse 90; Resp 17; Temp 97.3; Pulse Ox 99% on R/A; Weight 79.38 kg; Height bc6 5 ft. 4 in. ; 19:56 Body Mass Index 30.04 (79.38 kg, 162.56 cm) bc6 ED Course: 15:56 Patient arrived in ED. rg4 15:57 Hector Landry MD is Attending Physician. rt 16:03 Triage completed. ll1 16:03 Arm band placed on. ll1 16:37 Missed attempt(s): 22 gauge in left wrist. Bleeding controlled, band aid applied, aw1 catheter tip intact. 16:37 Missed attempt(s): 22 gauge in right antecubital area. Bleeding controlled, band aid aw1 applied, catheter tip intact. 17:01 Initial lab(s) drawn, by me, sent to lab. Inserted saline lock: 22 gauge in right ap3 antecubital area, using aseptic technique. Blood collected. 18:11 CT Abd/Pelvis - IV Contrast Only In Process Unspecified. EDMS 18:24 Urine collected: clean catch specimen, clear. ap3 18:24 Test, Urine Sent. ap3 18:24 Urinalysis w/ reflexes Sent. ap3 19:45 Patient has correct armband on for positive identification. Provided Education on: [email or web address] Oriented to ED, updated on expected length of stay.. 19:48 IV discontinued, intact, bleeding controlled, No redness/swelling at site. Pressure ty dressing applied. 20:07 No provider procedures requiring assistance completed. jb4 Administered Medications: 17:14 Drug: NS 0.9% IV 1000 ml IV at 1 bolus Per protocol; 1000 mL bolus Route: IV; Rate: 1 ap3 bolus; Site: right antecubital; 18:47 Follow up: IV Status: Completed infusion; IV Intake: 1000ml ap3 17:14 Drug: Famotidine IVP 20 mg IVP once; dilute with 10 mL 0.9% NaCl; give over 2 minutes ap3 Route: IVP; Site: right antecubital; 18:47 Follow up: Response: No adverse reaction ap3 17:14 Drug: Ondansetron IVP 4 mg IVP once; over 2 minutes Route: IVP; Site: right antecubital;ap3 18:47 Follow up: Response: No adverse reaction ap3 17:56 Drug: morphine IVP or IV 4 mg IVP once over 4 mins Route: IVP; Infused Over: 4 mins; ap3 Site: right antecubital; 18:47 Follow up: Response: No adverse reaction; Pain is decreased ap3 Intake: 18:47 IV: 1000ml; Total: 1000ml. ap3 Outcome: 19:39 Discharge ordered by . rt 20:07 Discharged to home ambulatory, jb4 20:07 Condition: stable 20:07 Discharge instructions given to patient, Instructed on discharge instructions, follow up and referral plans. medication usage, Demonstrated understanding of instructions, follow-up care, medications, Prescriptions given X 2, 20:11 Patient left the ED. jb4 Signatures: Dispatcher [employer] EDTia Chand rg4 Travis Mclaughlin RN RN jb4 Jenny Knott RN RN ap3 Yanet Huber RN RN ll1 Hector Landry MD MD rt Criselda Michelle bc6 Ileana Lazo aw1 Juan Juárez ty Corrections: (The following items were deleted from the chart) 20:09 19:58 intact, bleeding controlled, No redness/swelling at site. Pressure dressing ty applied, bc6
[2023-09-13 20:29] VITALS: BP 125/75; TEMP 97.3; O2SAT 99
== END ==
LOC: ER 15:54
DX: K29.00 Acute gastritis without bleeding (principal)
CPT/HCPCS: 85025; 81001; 36415; 81025; 83690; 80053; 74177; Q9967; J2405; J7030